=== PATIENT | female | born 1980 | race Hispanic/Latino ===

== ENCOUNTER 2017-06-28 16:00 | Emergency (ER) | payer OTHER ==
[2017-06-28] MEDS ORDERED: ALBUTEROL 2.5 MG/3 ML NEB SOL ONE (17:15)
[2017-06-28 17:40] LABS: Urine Blood NEGATIVE (NEG); Urine Glucose NEGATIVE (NEG); Urine Protein NEGATIVE (NEG); Urine Specific Gravity 1.025 (1.005-1.030); Urine pH 6.5 (5.0-7.0)
--- NOTE | 2017-06-28 18:22 | EDPHYS ---
Physician Documentation [facility] Name: Ammy Howell Age: 36 yrs Sex: Female : 1980 Arrival Date: 06/28/2017 Time: 16:04 Bed 27 Private MD: None, None ED Physician Jimbo Hidalgo HPI: 06/28 17:05 This 36 yrs old Female presents to ER via Ambulatory with complaints of Cough, cp Congestion. 17:05 The patient or guardian reports cough, that is intermittent. Onset: The cp symptoms/episode began/occurred 4 day(s) ago. Severity of symptoms: in the emergency department the symptoms are unchanged. Associated signs and symptoms: Pertinent positives: fever, sore throat, congestion, Pertinent negatives: ear ache, vomiting. 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 - Social history:: Smoking status: Patient/guardian denies using tobacco. ROS: 17:10 Constitutional: Negative for body aches, chills, fever, poor PO intake. cp 17:10 Eyes: Negative for injury, pain, redness, and discharge. cp 17:10 ENT: Positive for sore throat, Negative for drainage from ear(s), ear pain, difficulty swallowing, difficulty handling secretions. 17:10 Cardiovascular: Negative for chest pain, edema, palpitations. 17:10 Respiratory: Positive for cough. 17:10 Abdomen/GI: Negative for abdominal pain, nausea, vomiting, and diarrhea. 17:10 Skin: Negative for cellulitis, rash. 17:10 All other systems are negative. Exam: 17:15 Constitutional: The patient appears in no acute distress, alert, awake, cp non-diaphoretic, non-toxic, well developed, well nourished, obese. 17:15 Head/Face: Normocephalic, atraumatic. cp 17:15 Eyes: Periorbital structures: appear normal, Conjunctiva: normal, no exudate, no injection, Sclera: no appreciated abnormality, Lids and lashes: appear normal, bilaterally. 17:15 ENT: External ear(s): are unremarkable, Ear canal(s): are normal, clear, TM's: bulging, is not appreciated, bilaterally, dullness, bilaterally, erythema, is not appreciated, bilaterally, Nose: is normal, Mouth: Lips: moist, Oral mucosa: moist, Posterior pharynx: Airway: no evidence of obstruction, patent, Tonsils: are normal in appearance, Uvula: midline, swelling, is not appreciated, erythema, that is mild, exudate, is not appreciated. 17:15 Neck: ROM/movement: is normal, is supple, without pain, no range of motions limitations, no meningismus, no nuchal rigidity, Lymph nodes: no appreciated lymphadenopathy. 17:15 Chest/axilla: Inspection: normal, Palpation: is normal, no crepitus, no tenderness. 17:15 Cardiovascular: Rate: normal, Rhythm: regular. 17:15 Respiratory: the patient does not display signs of respiratory distress, Respirations: labored breathing, is not present, accessory muscle usage, is absent, intercostal retractions, are absent, splinting, is not noted, tachypnea, is not appreciated, Breath sounds: decreased breath sounds, that are mild, throughout, stridor, is not appreciated, + upper airway congestion. wheezing: is not appreciated. 17:15 Abdomen/GI: Exam negative for discomfort, distension, guarding, Inspection: abdomen appears normal. 17:15 Skin: cellulitis, is not appreciated, no rash present. Vital Signs: 16:29 BP 127 / 69; Pulse 89; Resp 19; Temp 98.3(O); Pulse Ox 100% on R/A; Weight 110.22 kg; la1 Height 5 ft. 4 in. (162.56 cm); 18:30 BP 114 / 68; Pulse 88; Resp 17; Pulse Ox 100% on R/A; rk2 16:29 Body Mass Index 41.71 (110.22 kg, 162.56 cm) la1 MDM: 16:53 Patient medically screened. cp 18:00 Differential Diagnosis: Bronchitis Influenza Otitis Media Pneumonia. cp 18:22 Data reviewed: vital signs, nurses notes, lab test result(s), and as a result, I will cp discharge patient. 18:22 Counseling: I had a detailed discussion with the patient and/or guardian regarding: the cp historical points, exam findings, and any diagnostic results supporting the discharge/admit diagnosis, lab results, to return to the emergency department if symptoms worsen or persist or if there are any questions or concerns that arise at home. 06/28 17:03 Order name: Strep; Complete Time: 18:21 cp 06/28 18:21 Interpretation: Reviewed. 06/28 17:26 Order name: Urine Dipstick--Ancillary (enter results); Complete Time: 17:47 em1 06/28 17:03 Order name: Urine Test (obtain specimen); Complete Time: 17:24 cp 06/28 17:26 Order name: Urine --Ancillary (enter results); Complete Time: 17:47 em1 06/28 18:07 Order name: Throat Culture EDSC 06/28 17:03 Order name: Urine Dipstick-Ancillary (obtain specimen); Complete Time: 17:24 cp Administered Medications: 17:24 Drug: Albuterol 2.5 mg Route: Inhalation; rk2 Disposition: 06/28/17 18:22 Discharged to Home. Impression: Cough. - Condition is Stable. - Discharge Instructions: Cough, Adult. - Prescriptions for Tessalon Perles 100 mg Oral Capsule - take 1 capsule by ORAL route every 8 hours As needed; 15 capsule. Prednisone 20 mg Oral Tablet - take 2 tablet by ORAL route once daily for 5 days; 10 tablet. Albuterol Sulfate 90 mcg/actuation - inhale 1-2 puff by INHALATION route every 4-6 hours; 1 Inhaler. - Medication Reconciliation Form, Thank You Letter, Antibiotic Education, Prescription Opioid Use form. - Follow up: Private Physician; When: 2 - 3 days; Reason: Recheck today's complaints. - Problem is new. - Symptoms have improved. Addendum: 06/29/2017 22:25 Co-signature as Attending Physician, Jimbo Hidalgo MD I agree with the assessment and k dr plan of care. Signatures: Dispatcher [employer] [facility] Jimbo Hidalgo MD MD kdr Attema, Lee RN RN la1 Gael Walters PA PA Romana Burnette RN RN rk2 Corrections: (The following items were deleted from the chart) 06/28 19:20 18:22 06/28/2017 18:22 Discharged to Home. Impression: Cough. Condition is Stable. rk2 Forms are Medication Reconciliation Form, Thank You Letter, Antibiotic Education, Prescription Opioid Use. Follow up: Private Physician; When: 2 - 3 days; Reason: Recheck today's complaints. Problem is new. Symptoms have improved. cp
--- NOTE | 2017-06-28 18:22 | ER ---
Nurse's Notes [facility] Name: Ammy Howell Age: 36 yrs Sex: Female : 1980 Arrival Date: 06/28/2017 Time: 16:04 Bed 27 Private MD: None, None Diagnosis: Cough Presentation: 06/28 16:27 Presenting complaint: Patient states: Cough, congestion, subjective fever on and off la1 since monday. Transition of care: patient was not received from another setting of care. Resp Distress? No respiratory distress is noted at this time. Onset of symptoms was June 28, 2017. Initial Sepsis Screen: Does the patient meet any 2 criteria? No. Patient's initial sepsis screen is negative. Does the patient have a suspected source of infection? No. Patient's initial sepsis screen is negative. Care prior to arrival: None. 16:27 Method Of Arrival: Ambulatory la1 16:27 Acuity: LAISHA 4 la1 Triage Assessment: 16:42 General: Appears in no apparent distress. well groomed, well developed, well nourished, rk2 Behavior is calm, cooperative. Pain:. Neuro: Level of Consciousness is alert, obeys commands, Oriented to person, place, time, situation. Respiratory: Reports cough that is productive, Airway is patent Respiratory effort is even, unlabored, Respiratory pattern is regular, symmetrical, Breath sounds are clear bilaterally. Derm: No signs and/or symptoms reported regarding the dermatologic system. Skin is pink, warm \T\ dry. 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 - Social history:: Smoking status: Patient/guardian denies using tobacco. Screenin:42 Abuse screen: Denies threats or abuse. Nutritional screening: No deficits noted. rk2 Tuberculosis screening: No symptoms or risk factors identified. Fall Risk None identified. Vital Signs: 16:29 BP 127 / 69; Pulse 89; Resp 19; Temp 98.3(O); Pulse Ox 100% on R/A; Weight 110.22 kg; la1 Height 5 ft. 4 in. (162.56 cm); 18:30 BP 114 / 68; Pulse 88; Resp 17; Pulse Ox 100% on R/A; rk2 16:29 Body Mass Index 41.71 (110.22 kg, 162.56 cm) la1 ED Course: 16:04 Patient arrived in ED. mr 16:04 None, None is Private Physician. mr 16:21 Romana Edwards, RN is Primary Nurse. rk2 16:28 Triage completed. la1 16:29 Arm band placed on right wrist. la1 16:42 Patient has correct armband on for positive identification. Bed in low position. Call rk2 light in reach. Pulse ox on. 16:53 Gael Walters PA is PHCP. cp 16:53 Jimbo Hidalgo MD is Attending Physician. cp 18:59 No provider procedures requiring assistance completed. Patient did not have IV access rk2 during this emergency room visit. Administered Medications: 17:24 Drug: Albuterol 2.5 mg Route: Inhalation; rk2 Outcome: 18:22 Discharge ordered by MD. cp 18:59 Discharged to home ambulatory. rk2 18:59 Condition: good 18:59 Discharge instructions given to patient, Prescriptions given X 3. 19:20 Patient left the ED. rk2 Signatures: Katia Baer mr FosterScott, RN RN la1 Gael Walters PA PA cp Romana Edwards, RN RN rk2
[2017-06-28 19:25] VITALS: TEMP 98.3; O2SAT 100
[2017-06-28 19:26] VITALS: BP 114/68
== END 2017-06-28 19:20 | disposition home or self-care (01) ==
LOC: ER 16:00
DX: R05 Cough (principal); Z88.6 Allergy status to analgesic agent
CPT/HCPCS: 81003; 81025; 87070; 87081; 99284

== ENCOUNTER 2018-03-08 13:20 | Emergency (ER) | payer OTHER ==
[2011-10-15 21:38] VITALS: BP 112/62
--- NOTE | 2018-03-08 14:52 | ER ---
Nurse's Notes [facility] Name: Ammy Howell Age: 37 yrs Sex: Female : 1980 Arrival Date: 03/08/2018 Time: 13:35 Bed Treatment Private MD: None, None Diagnosis: Acute pharyngitis;Acute sinusitis Presentation: 03/08 13:54 Presenting complaint: Patient states: i have been sick for 3 days, but my head and my tw2 ears hurt, i have a bad cough and drainage, and now its hard for me to swallow, my doctor doesn't have anything open until next week. Transition of care: patient was not received from another setting of care. Onset of symptoms was March 08, 2018. Risk Assessment: Do you want to hurt yourself or someone else? Patient reports no desire to harm self or others. Initial Sepsis Screen: Does the patient meet any 2 criteria? No. Patient's initial sepsis screen is negative. Does the patient have a suspected source of infection? No. Patient's initial sepsis screen is negative. Care prior to arrival: None. 13:54 Method Of Arrival: Ambulatory tw2 13:54 Acuity: LAISHA 4 tw2 Triage Assessment: 14:43 Headache History: The patient has had previous headaches and this one is similar to tw2 previous episodes. General: Appears in no apparent distress. 14:43 General: Appears in no apparent distress. Behavior is calm, cooperative, appropriate tw2 for age. Pain: Pain currently is 7 out of 10 on a pain scale. Pain began 2-3 days ago. Noted to be Also complains of no other associated symptoms. 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 - Social history:: Smoking status: Patient/guardian denies using tobacco. - Ebola Screening: : Patient denies travel to an Ebola-affected area in the 21 days before illness onset. Screenin:43 Abuse screen: Denies threats or abuse. Nutritional screening: No deficits noted. tw2 Tuberculosis screening: No symptoms or risk factors identified. Fall Risk None identified. Assessment: 14:42 General: Appears in no apparent distress. Behavior is calm, cooperative, appropriate tw2 for age. Pain: Complains of pain in "headache and my throat". Neuro: Level of Consciousness is awake, alert, obeys commands, Oriented to person, place, time, situation. Cardiovascular: Capillary refill < 3 seconds Patient's skin is warm and dry. Respiratory: Reports cough that is Airway is patent Respiratory effort is even, unlabored, Respiratory pattern is regular, symmetrical. GI: No signs and/or symptoms were reported involving the gastrointestinal system. : No signs and/or symptoms were reported regarding the genitourinary system. EENT: Reports nasal congestion nasal discharge pain. Derm: No signs and/or symptoms reported regarding the dermatologic system. Musculoskeletal: Range of motion: intact in all extremities. 14:47 Reassessment: provider EITAN Avila at bedside at this time. tw2 Vital Signs: 13:55 BP 130 / 92; Pulse 98; Resp 18; Temp 98.9(O); Pulse Ox 99% on R/A; Weight 111.13 kg tw2 (R); Height 5 ft. 4 in. (162.56 cm) (R); Pain 7/10; 13:55 Body Mass Index 42.05 (111.13 kg, 162.56 cm) tw2 ED Course: 13:35 Patient arrived in ED. dl4 13:35 None, None is Private Physician. dl4 13:55 Triage completed. tw2 13:55 Arm band placed on. EKG completed in triage. Results shown to MD. tw2 14:40 Bed in low position. Call light in reach. Pulse ox on. NIBP on. tw2 14:41 [facility]ai [facility]. jr8 14:41 Jimbo Hidalgo MD is Attending Physician. jr8 14:42 Arlene Espinoza, KAYLEY is Primary Nurse. tw2 14:57 No provider procedures requiring assistance completed. Patient did not have IV access tw2 during this emergency room visit. Administered Medications: No medications were administered Outcome: 14:52 Discharge ordered by . jr8 14:57 Discharged to home ambulatory. tw2 14:57 Condition: stable 14:57 Discharge instructions given to patient, Instructed on discharge instructions, follow up and referral plans. medication usage, Demonstrated understanding of instructions, follow-up care, medications, Prescriptions given X 2. 14:58 Patient left the ED. tw2 Signatures: Santi Tsai PA PA jr8 Arlene Espinoza RN RN tw2 Alessandro Carvalho dl4
--- NOTE | 2018-03-08 14:53 | EDPHYS ---
Physician Documentation [facility] Name: Ammy Howell Age: 37 yrs Sex: Female : 1980 Arrival Date: 03/08/2018 Time: 13:35 Bed Treatment Private MD: None, None ED Physician Jimbo Hidalgo HPI: 03/08 15:45 This 37 yrs old Female presents to ER via Ambulatory with complaints of Cough, jr8 Headache. 15:45 The patient or guardian reports cough, that is intermittent, described as mild, with no jr8 sputum. Onset: The symptoms/episode began/occurred gradually, 3 day(s) ago. Severity of symptoms: At their worst the symptoms were mild, in the emergency department the symptoms are unchanged. Modifying factors: The symptoms are alleviated by nothing, the symptoms are aggravated by nothing. Associated signs and symptoms: Pertinent positives: rhinorrhea, sore throat, headache. The patient has not experienced similar symptoms in the past. The patient has not recently seen a physician. 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 - Social history:: Smoking status: Patient/guardian denies using tobacco. - Ebola Screening: : Patient denies travel to an Ebola-affected area in the 21 days before illness onset. ROS: 15:45 Eyes: Negative for injury, pain, redness, and discharge, Neck: Negative for injury, jr8 pain, and swelling, Cardiovascular: Negative for chest pain, palpitations, and edema, Abdomen/GI: Negative for abdominal pain, nausea, vomiting, diarrhea, and constipation, Back: Negative for injury and pain, MS/Extremity: Negative for injury and deformity, Skin: Negative for injury, rash, and discoloration. 15:45 ENT: Positive for rhinorrhea, sinus congestion, sinus pain, sore throat, Negative for drainage from ear(s), ear pain. 15:45 Respiratory: Positive for cough, Negative for shortness of breath, sputum production, wheezing. 15:45 Neuro: Positive for headache. Exam: 15:45 Eyes: Pupils equal round and reactive to light, extra-ocular motions intact. Lids and jr8 lashes normal. Conjunctiva and sclera are non-icteric and not injected. Cornea within normal limits. Periorbital areas with no swelling, redness, or edema. ENT: Nares patent. No nasal discharge, no septal abnormalities noted. Tympanic membranes are normal and external auditory canals are clear. Oropharynx with no redness, swelling, or masses, exudates, or evidence of obstruction, uvula midline. Mucous membranes moist. Neck: Trachea midline, no thyromegaly or masses palpated, and no cervical lymphadenopathy. Supple, full range of motion without nuchal rigidity, or vertebral point tenderness. No Meningismus. Cardiovascular: Regular rate and rhythm with a normal S1 and S2. No gallops, murmurs, or rubs. Normal PMI, no JVD. No pulse deficits. Respiratory: Lungs have equal breath sounds bilaterally, clear to auscultation and percussion. No rales, rhonchi or wheezes noted. No increased work of breathing, no retractions or nasal flaring. Abdomen/GI: Soft, non-tender, with normal bowel sounds. No distension or tympany. No guarding or rebound. No evidence of tenderness throughout. Back: No spinal tenderness. No costovertebral tenderness. Full range of motion. Skin: Warm, dry with normal turgor. Normal color with no rashes, no lesions, and no evidence of cellulitis. MS/ Extremity: Pulses equal, no cyanosis. Neurovascular intact. Full, normal range of motion. Neuro: Awake and alert, GCS 15, oriented to person, place, time, and situation. Cranial nerves II-XII grossly intact. Motor strength 5/5 in all extremities. Sensory grossly intact. Cerebellar exam normal. Normal gait. Vital Signs: 13:55 BP 130 / 92; Pulse 98; Resp 18; Temp 98.9(O); Pulse Ox 99% on R/A; Weight 111.13 kg tw2 (R); Height 5 ft. 4 in. (162.56 cm) (R); Pain 7/10; 13:55 Body Mass Index 42.05 (111.13 kg, 162.56 cm) tw2 MDM: 14:41 Patient medically screened. jr8 14:51 Data reviewed: vital signs, nurses notes, lab test result(s), and as a result, I will jr8 discharge patient. Data interpreted: Pulse oximetry: on room air is 99 %. Interpretation: normal. Counseling: I had a detailed discussion with the patient and/or guardian regarding: the historical points, exam findings, and any diagnostic results supporting the discharge/admit diagnosis, the need for outpatient follow up, a family practitioner, to return to the emergency department if symptoms worsen or persist or if there are any questions or concerns that arise at home. 03/08 14:01 Order name: Flu; Complete Time: 14:41 tw2 03/08 14:01 Order name: Strep; Complete Time: 14: tw2 03/08 14:25 Order name: Throat Culture EDMS Administered Medications: No medications were administered Disposition: 03/08/18 14:52 Discharged to Home. Impression: Acute pharyngitis, Acute sinusitis. - Condition is Stable. - Discharge Instructions: Pharyngitis, Sinusitis, Adult. - Prescriptions for Augmentin 875- 125 mg Oral Tablet - take 1 tablet by ORAL route every 12 hours for 10 days; 20 tablet. Guaifenesin AC 10- 100 mg/5 mL Oral Liquid - take 10 milliliter by ORAL route every 4 hours As needed; 240 milliliter. - Medication Reconciliation Form, Thank You Letter, Antibiotic Education, Prescription Opioid Use, Work release form form. - Follow up: Private Physician; When: 2 - 3 days; Reason: Recheck today's complaints, Continuance of care, Re-evaluation by your physician. - Problem is new. - Symptoms have improved. Addendum: 03/15/2018 08:58 Co-signature as Attending Physician, Jimbo Hidalgo MD I agree with the assessment and k dr plan of care. Signatures: Dispatcher [employer] [facility] Jimbo Hidalgo MD MD kdr Santi Tsai PA PA jr8 Arlene Espinoza RN RN tw2 Corrections: (The following items were deleted from the chart) 03/08 14:58 14:52 03/08/2018 14:52 Discharged to Home. Impression: Acute pharyngitis; Acute tw2 sinusitis. Condition is Stable. Forms are Work release form, Medication Reconciliation Form, Thank You Letter, Antibiotic Education, Prescription Opioid Use. Follow up: Private Physician; When: 2 - 3 days; Reason: Recheck today's complaints, Continuance of care, Re-evaluation by your physician. Problem is new. Symptoms have improved. jr8
== END 2018-03-08 14:58 | disposition home or self-care (01) ==
LOC: ER 13:20
DX: J01.90 Acute sinusitis, unspecified (principal); J02.9 Acute pharyngitis, unspecified; Z88.5 Allergy status to narcotic agent
CPT/HCPCS: 87070; 87081; 87804; 99283

== ENCOUNTER 2018-04-07 14:50 | Inpatient (IN) | payer OTHER ==
[2018-04-07] MEDS ORDERED: LIDOCAINE 1% 20 ML MDV ONE (15:51)
[2018-04-07] MEDS ORDERED: LORAZEPAM 0.5 MG TABLET ONE (16:00)
--- NOTE | 2018-04-07 16:17 | EDPHYS ---
Physician Documentation [facility] Name: Ammy Howell Age: 37 yrs Sex: Female : 1980 Arrival Date: 04/07/2018 Time: 14:52 Bed 24 Private MD: None, None ED Physician Gael Reyes HPI: 04/07 15:44 This 37 yrs old Female presents to ER via Ambulatory with complaints of sarika Abscess. 15:44 The patient presents with an abscess of the groin and left femoral area. Description: sarika The affected area is small, moderate sized, confluent, draining, erythematous, fluctuant, hot. Onset: The symptoms/episode began/occurred 3 day(s) ago. Possible cause(s): unknown. Severity of symptoms: At their worst the symptoms were. The patient has not experienced similar symptoms in the past. 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 - Social history:: Smoking status: Patient/guardian denies using tobacco. - Ebola Screening: : Patient negative for fever greater than or equal to 101.5 degrees Fahrenheit, and additional compatible Ebola Virus Disease symptoms Patient denies exposure to infectious person Patient denies travel to an Ebola-affected area in the 21 days before illness onset No symptoms or risks identified at this time. - Family history:: not pertinent. ROS: 15:44 Constitutional: Negative for fever, chills, and weight loss, Eyes: Negative for injury, sarika pain, redness, and discharge, ENT: Negative for injury, pain, and discharge, Neck: Negative for injury, pain, and swelling, Cardiovascular: Negative for chest pain, palpitations, and edema, Respiratory: Negative for shortness of breath, cough, wheezing, and pleuritic chest pain, Abdomen/GI: Negative for abdominal pain, nausea, vomiting, diarrhea, and constipation, Back: Negative for injury and pain, : Negative for injury, bleeding, discharge, and swelling, MS/Extremity: Negative for injury and deformity, Neuro: Negative for headache, weakness, numbness, tingling, and seizure, Psych: Negative for depression, anxiety, suicide ideation, homicidal ideation, and hallucinations, Allergy/Immunology: Negative for hives, rash, and allergies, Endocrine: Negative for neck swelling, polydipsia, polyuria, polyphagia, and marked weight changes, Hematologic/Lymphatic: Negative for swollen nodes, abnormal bleeding, and unusual bruising. 15:44 Skin: Positive for erythema, swelling, of the pelvis. Exam: 15:44 Constitutional: This is a well developed, well nourished patient who is awake, alert, sarika and in no acute distress. Head/Face: Normocephalic, atraumatic. Eyes: Pupils equal round and reactive to light, extra-ocular motions intact. Lids and lashes normal. Conjunctiva and sclera are non-icteric and not injected. Cornea within normal limits. Periorbital areas with no swelling, redness, or edema. ENT: Nares patent. No nasal discharge, no septal abnormalities noted. Tympanic membranes are normal and external auditory canals are clear. Oropharynx with no redness, swelling, or masses, exudates, or evidence of obstruction, uvula midline. Mucous membranes moist. Neck: Trachea midline, no thyromegaly or masses palpated, and no cervical lymphadenopathy. Supple, full range of motion without nuchal rigidity, or vertebral point tenderness. No Meningismus. Chest/axilla: Normal chest wall appearance and motion. Nontender with no deformity. No lesions are appreciated. Cardiovascular: Regular rate and rhythm with a normal S1 and S2. No gallops, murmurs, or rubs. Normal PMI, no JVD. No pulse deficits. Respiratory: Lungs have equal breath sounds bilaterally, clear to auscultation and percussion. No rales, rhonchi or wheezes noted. No increased work of breathing, no retractions or nasal flaring. Abdomen/GI: Soft, non-tender, with normal bowel sounds. No distension or tympany. No guarding or rebound. No evidence of tenderness throughout. Back: No spinal tenderness. No costovertebral tenderness. Full range of motion. Female : Normal external genitalia. MS/ Extremity: Pulses equal, no cyanosis. Neurovascular intact. Full, normal range of motion. Neuro: Awake and alert, GCS 15, oriented to person, place, time, and situation. Cranial nerves II-XII grossly intact. Motor strength 5/5 in all extremities. Sensory grossly intact. Cerebellar exam normal. Normal gait. Psych: Awake, alert, with orientation to person, place and time. Behavior, mood, and affect are within normal limits. 15:44 Skin: abscess, that is moderate sized, of the groin, with drainage, with induration, with surrounding cellulitis, cellulitis, that is minimal, induration, that is mild is noted, that is moderate is noted. Vital Signs: 15:08 BP 124 / 78; Pulse 97; Resp 17; Temp 99.2; Pulse Ox 98% on R/A; sg 18:28 BP 125 / 54; Pulse 91; Resp 18; Pulse Ox 98% on R/A; la1 20:00 BP 151 / 91; Pulse 88; Resp 20; Temp 98.6; Pulse Ox 97% on R/A; Pain 5/10; fc MDM: 15:34 Patient medically screened. [facility] 15:44 Data reviewed: vital signs, nurses notes, lab test result(s). [facility] 04/07 16:03 Order name: Glucose, Ancillary Testing; Complete Time: 16:53 EDLA 04/07 16:09 Order name: Basic Metabolic Panel; Complete Time: 18:17 [facility] 04/07 16:09 Order name: CBC with Diff; Complete Time: 17:32 [facility] 04/07 16:09 Order name: LFT's; Complete Time: 18:17 [facility] 04/07 16:09 Order name: Magnesium; Complete Time: 18:17 [facility] 04/07 16:09 Order name: NT PRO-BNP; Complete Time: 18:17 [facility] 04/07 16:09 Order name: PT-INR; Complete Time: 17:32 [facility] 04/07 16:09 Order name: Troponin (emerg Dept Use Only); Complete Time: 18:17 [facility] 04/07 16:09 Order name: XRAY Chest (1 view); Complete Time: 16:53 [facility] 04/07 16:09 Order name: Wound Culture [facility] 04/07 17:10 Order name: Test, Urine [facility] 04/07 17:10 Order name: Urine Dipstick--Ancillary (enter results) [facility] 04/07 17:10 Order name: Test, Serum; Complete Time: 18:17 [facility] 04/07 18:35 Order name: Glucose, Ancillary Testing [facility] 04/07 15:43 Order name: Gloves, Sterile; Complete Time: 16:03 [facility] 04/07 15:43 Order name: Setup Suture Tray; Complete Time: 16:03 [facility] 04/07 15:43 Order name: Blood Glucose Level; Complete Time: 16:01 [facility] 04/07 16:09 Order name: EKG; Complete Time: 16:10 [facility] 04/07 16:09 Order name: Cardiac monitoring; Complete Time: 18:09 [facility] 04/07 16:09 Order name: EKG - Nurse/Tech; Complete Time: 18:09 [facility] 04/07 16:09 Order name: IV Saline Lock; Complete Time: 17:26 [facility] 04/07 16:09 Order name: Labs collected and sent; Complete Time: 17: [facility] 04/07 16:09 Order name: O2 Per Protocol; Complete Time: 17:26 [facility] 04/07 16:09 Order name: O2 Sat Monitoring; Complete Time: 17: [facility] 04/07 16:53 Order name: Urine Dipstick-Ancillary (obtain specimen); Complete Time: 17: [facility] 04/07 16:53 Order name: Urine Test (obtain specimen); Complete Time: 17: [facility] 04/07 19:10 Order name: NPO: after midnight; Complete Time: 19:22 [facility] Administered Medications: 16:00 Drug: Ativan 1 mg Route: PO; la1 17:48 Follow up: Response: No adverse reaction; Anxiety decreased la1 16:03 Drug: Lidocaine (2 %) 10 ml Volume: 5 ml; Route: Infiltration; la1 17:31 CANCELLED (Duplicate Order): Doxycycline 200 mg PO once [facility] 17:32 CANCELLED (Duplicate Order): Bactrim (160 mg-800 mg (DS) 1 tablet PO once [facility] 17:45 Drug: Insulin Regular Human 10 units {Co-Signature: hb (Juliane Guthrie RN).} Route: la1 IVP; Site: left antecubital; 18:33 Follow up: Response: Blood sugar is lowered la1 17:45 Drug: Insulin Regular Human 10 units {Co-Signature: hb (Juliane Guthrie RN).} Route: la1 Sub-Q; Site: left upper arm; 18:33 Follow up: Response: Blood sugar is lowered la1 17:47 Drug: morphine 4 mg Route: IVP; Site: left antecubital; la1 17:48 Follow up: Response: No adverse reaction; Pain is decreased la1 17:47 Drug: Zosyn 3.375 grams Route: IVPB; Infused Over: 60 mins; Site: left antecubital; la1 18:28 Follow up: IV Status: Completed infusion la1 17:47 Drug: NS 0.9% 1000 ml Route: IV; Rate: 1 bolus; Site: left antecubital; la1 18:33 Follow up: IV Status: Infusion continued upon admission la1 17:48 Not Given (Other Intervention Used): NS 0.9% 1000 ml IV at 1 bolus Per protocol; 1000 la1 mL bolus 17:48 Drug: Zofran 4 mg Route: IVP; Site: left antecubital; la1 17:49 Follow up: Response: No adverse reaction la1 18:27 Drug: NS 0.9% 1000 ml Route: IV; Rate: 1 bolus; Site: left antecubital; la1 18:29 Follow up: IV Status: Completed infusion la1 18:28 Drug: vancoMYCIN 1 grams Route: IVPB; Infused Over: 2 hrs; Site: left antecubital; la1 18:33 Follow up: IV Status: Infusion continued upon admission la1 18:32 Drug: morphine 4 mg Route: IVP; Site: left antecubital; la1 18:33 Follow up: Response: No adverse reaction; Pain is decreased la1 18:33 Not Given (Other Intervention Used): Zofran 4 mg IVP once; over 2 minutes la1 20:42 Drug: Zofran 4 mg Route: IVP; Site: left antecubital; la1 20:42 Follow up: Response: No adverse reaction la1 Point of Care Testing: Blood Glucose: 16:00 Blood Glucose: 485 mg/dL; lt1 18:32 Blood Glucose: 222 mg/dL; la1 Ranges: Critical Glucose Levels:Adult <50 mg/dl or >400 mg/dl <40 mg/dl or >180 mg/dl Disposition: 02/23/19 16:17 Hospitalization ordered by Alia Becerra for Inpatient Admission. Preliminary diagnosis are Type 2 diabetes mellitus - new onset, Cutaneous abscess of groin - mons pubis, Fever, unspecified. - Bed requested for Telemetry/MedSurg (Inpatient). - Status is Inpatient Admission. la1 - Condition is Stable. - Problem is new. - Symptoms have improved. UTI on Admission? No Signatures: Dispatcher [employer] EDMax Mckeon RN RN sg Anderson, Corey, MD MD cha Chretien, Felicia, RN RN fc Solis, Maria ms Scott Foster RN RN la1 Juliane Guthrie RN Corrections: (The following items were deleted from the chart) 16:10 15:47 I \T\ D: Incision and drainage was performed for an abscess of the groin Prepped sarika with Betadine, Anesthetized with 10 ml's 1% Lidocaine w/ Epi. Incised with #11 blade. Drained small amount Packed with iodoform gauze, Dressing: non-Adherent dressing, the patient tolerated the procedure well, [facility] 17:26 15:43 Dressing - Wound ordered. [place] [id number] 17:31 15:43 Doxycycline 200 mg PO once ordered. [facility] 17:32 15:43 Bactrim (160 mg-800 mg (DS) 1 tablet PO once ordered. [facility] 18:12 16:17 Hospitalization Ordered by Alia Becerra MD for Inpatient Admission. Preliminary ms diagnosis is Type 2 diabetes mellitus - new onset; Cutaneous abscess of groin - mons pubis; Fever, unspecified. Bed requested for Telemetry/MedSurg (Inpatient). Status is Inpatient Admission. Condition is Stable. Problem is new. Symptoms have improved. UTI on Admission? No. [facility] 20:56 18:12 04/07/2018 16:17 Hospitalization Ordered by Alia Becerra MD for Inpatient la1 Admission. Preliminary diagnosis is Type 2 diabetes mellitus - new onset; Cutaneous abscess of groin - mons pubis; Fever, unspecified. Bed requested for Telemetry/MedSurg (Inpatient). Status is Inpatient Admission. Condition is Stable. Problem is new. Symptoms have improved. UTI on Admission? No. ms
--- NOTE | 2018-04-07 16:17 | ER ---
Nurse's Notes [facility] Name: Ammy Howell Age: 37 yrs Sex: Female : 1980 Arrival Date: 04/07/2018 Time: 14:52 Bed 24 Private MD: None, None Diagnosis: Type 2 diabetes mellitus-new onset;Cutaneous abscess of groin-mons pubis;Fever, unspecified Presentation: 04/07 15:06 Presenting complaint: Patient states: Abscess noted to the labia majora, reports pain sg redness and swelling, pain radiates down the right leg, unsure if any fever at home due to taking motrin for pain control. Transition of care: patient was not received from another setting of care. Onset of symptoms was April 07, 2018. Risk Assessment: Do you want to hurt yourself or someone else? Patient reports no desire to harm self or others. Initial Sepsis Screen: Does the patient meet any 2 criteria? HR > 90 bpm. Does the patient have a suspected source of infection? Yes: Skin breakdown/wound. Care prior to arrival: None. 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 - Social history:: Smoking status: Patient/guardian denies using tobacco. - Ebola Screening: : Patient negative for fever greater than or equal to 101.5 degrees Fahrenheit, and additional compatible Ebola Virus Disease symptoms Patient denies exposure to infectious person Patient denies travel to an Ebola-affected area in the 21 days before illness onset No symptoms or risks identified at this time. - Family history:: not pertinent. Screenin:01 Abuse screen: Denies threats or abuse. Nutritional screening: No deficits noted. la1 Tuberculosis screening: No symptoms or risk factors identified. Fall Risk None identified. Assessment: 16:00 General: Appears in no apparent distress. Behavior is calm, cooperative. Pain: la1 Complains of pain in left femoral area. Neuro: Level of Consciousness is awake, alert, obeys commands, Oriented to person, place, time, situation. Cardiovascular: Capillary refill < 3 seconds Patient's skin is warm and dry. Respiratory: Airway is patent Respiratory effort is even, unlabored, Respiratory pattern is regular, symmetrical. GI: Abdomen is non-distended, obese. : No signs and/or symptoms were reported regarding the genitourinary system. Derm: Abscess located on left femoral area is quarter sized, has clear drainage, is red, is raised. 17:49 Reassessment: Patient appears in no apparent distress at this time. No changes from la1 previously documented assessment. Patient and/or family updated on plan of care and expected duration. Pain level reassessed. Vital Signs: 15:08 BP 124 / 78; Pulse 97; Resp 17; Temp 99.2; Pulse Ox 98% on R/A; sg 18:28 BP 125 / 54; Pulse 91; Resp 18; Pulse Ox 98% on R/A; la1 20:00 BP 151 / 91; Pulse 88; Resp 20; Temp 98.6; Pulse Ox 97% on R/A; Pain 5/10; fc ED Course: 14:52 Patient arrived in ED. mr 14:52 None, None is Private Physician. mr 15:08 Triage completed. sg 15:08 Arm band placed on. sg 15:34 Gael Reyes MD is Attending Physician. sarika 16:01 Bed in low position. Call light in reach. la1 16:01 No provider procedures requiring assistance completed. la1 16:02 Scott Foster RN is Primary Nurse. la1 16:14 Alia Becerra MD is Hospitalizing Provider. sarika 16:18 Missed attempt(s): 22 gauge in left forearm. lt1 16:44 XRAY Chest (1 view) In Process Unspecified. EDMS 17:00 Accessed peripheral vein via ultrasound, utilizing dynamic ultrasound technique Clean \T\ la1 dry. 18G 2in long IV inserted to left basilic vein. 20:08 Patient admitted, IV remains in place. fc Administered Medications: 16:00 Drug: Ativan 1 mg Route: PO; la1 17:48 Follow up: Response: No adverse reaction; Anxiety decreased la1 16:03 Drug: Lidocaine (2 %) 10 ml Volume: 5 ml; Route: Infiltration; la1 17:31 CANCELLED (Duplicate Order): Doxycycline 200 mg PO once sarika 17:32 CANCELLED (Duplicate Order): Bactrim (160 mg-800 mg (DS) 1 tablet PO once sarika 17:45 Drug: Insulin Regular Human 10 units {Co-Signature: hb (Juliane Guthrie RN).} Route: la1 IVP; Site: left antecubital; 18:33 Follow up: Response: Blood sugar is lowered la1 17:45 Drug: Insulin Regular Human 10 units {Co-Signature: hb (Juliane Guthrie RN).} Route: la1 Sub-Q; Site: left upper arm; 18:33 Follow up: Response: Blood sugar is lowered la1 17:47 Drug: morphine 4 mg Route: IVP; Site: left antecubital; la1 17:48 Follow up: Response: No adverse reaction; Pain is decreased la1 17:47 Drug: Zosyn 3.375 grams Route: IVPB; Infused Over: 60 mins; Site: left antecubital; la1 18:28 Follow up: IV Status: Completed infusion la1 17:47 Drug: NS 0.9% 1000 ml Route: IV; Rate: 1 bolus; Site: left antecubital; la1 18:33 Follow up: IV Status: Infusion continued upon admission la1 17:48 Not Given (Other Intervention Used): NS 0.9% 1000 ml IV at 1 bolus Per protocol; 1000 la1 mL bolus 17:48 Drug: Zofran 4 mg Route: IVP; Site: left antecubital; la1 17:49 Follow up: Response: No adverse reaction la1 18:27 Drug: NS 0.9% 1000 ml Route: IV; Rate: 1 bolus; Site: left antecubital; la1 18:29 Follow up: IV Status: Completed infusion la1 18:28 Drug: vancoMYCIN 1 grams Route: IVPB; Infused Over: 2 hrs; Site: left antecubital; la1 18:33 Follow up: IV Status: Infusion continued upon admission la1 18:32 Drug: morphine 4 mg Route: IVP; Site: left antecubital; la1 18:33 Follow up: Response: No adverse reaction; Pain is decreased la1 18:33 Not Given (Other Intervention Used): Zofran 4 mg IVP once; over 2 minutes la1 20:42 Drug: Zofran 4 mg Route: IVP; Site: left antecubital; la1 20:42 Follow up: Response: No adverse reaction la1 Point of Care Testing: Blood Glucose: 16:00 Blood Glucose: 485 mg/dL; lt1 18:32 Blood Glucose: 222 mg/dL; la1 Ranges: Outcome: 16:17 Decision to Hospitalize by Provider. [facility] 20:05 Admitted to Med/surg accompanied by tech, via wheelchair, room 214, with chart, Report fc called to Krystal Felix RN 20:05 Condition: good 20:05 Discharge instructions given to patient, Instructed on the need for admit, Demonstrated understanding of instructions. 20:56 Patient left the ED. la1 Signatures: Dispatcher [employer] EDMS Max Delaney, KAYLEY ZALDIVAR Gael Reyes MD MD cha Rivera, Mary mr Natalie Walter RN RN Scott Foster RN RN la1 Claritza Erickson 1 Juliane Guthrie RN hb Corrections: (The following items were deleted from the chart) 20:08 20:00 BP 151 / 91; Pulse 88bpm; Resp 20bpm; Pulse Ox 97% RA; Pain 5/10; [facility]
--- NOTE | 2018-04-07 16:49 | RAD REPORT ---
EXAM DESCRIPTION: RAD - Chest Single View - 04/07/2018 4:44 pm CLINICAL HISTORY: COUGH Chest pain. COMPARISON: CHEST SINGLE VIEW dated 02/22/2014; CHEST SINGLE VIEW dated 01/25/2014; CHEST PA AND LAT 2 VIEW dated 01/27/2009; CHEST PA AND LAT 2 VIEW dated 05/22/2008 FINDINGS: Portable technique limits examination quality. The lungs are grossly clear. The heart is normal in size. No displaced fractures. IMPRESSION: No acute intrathoracic process suspected.
[2018-04-07 17:18] LABS: Absolute Lymphocytes (CBC) 2.7 K/uL (0.7-4.9); Absolute Monocytes 0.4 K/uL (0.1-1.3); Absolute Neutrophil 6.4 K/uL (1.8-8.0); Basophils % 0.9 % (0-1.3); Eosinophils % 0.9 % (0-4.4); Hematocrit 38.6 % (36.0-45.0); MPV 7.6 fL (7.6-11.3); Monocytes % 4.3 % (3.3-12.3); RBC Red Blood Cell Count 4.97 M/uL (3.86-4.86)
[2018-04-07 17:19] LABS: Protime INR 1.03
[2018-04-07] MEDS ORDERED: INSULIN -REGULAR HUMAN 50 UNIT/0.5 ML ML ONE (17:27)
[2018-04-07] MEDS ORDERED: MORPHINE 4 MG/ML SYR ONE ×2 (17:27→18:33)
[2018-04-07] MEDS ORDERED: ONDANSETRON 4 MG/2 ML VIAL ONE (17:27)
[2018-04-07] MEDS ORDERED: PIPER/TAZO/NS 3.375gm 3.375 GM/100 ML BAG ONE (17:27)
[2018-04-07] MEDS ORDERED: NA CHLORIDE 0.9% 1,000 ML ONE ×2 (17:28→18:27)
[2018-04-07] MEDS ORDERED: VANCOMYCIN/NS 1 gm 1 GM/250 ML BAG IVPB ONE (17:45)
[2018-04-07 17:54] LABS: ALT/SGPT 23 U/L (12-78); AST/SGOT 13 U/L (15-37); Albumin 3.4 g/dL (3.4-5.0); Alkaline Phosphatase 132 U/L (45-117); BUN Blood Urea Nitrogen 9 mg/dL (7-18); Bicarbonate 27 mmol/L (21-32); Bilirubin Direct < 0.1 mg/dL (0-0.2); Bilirubin Total 0.3 mg/dL (0.2-1.0); Magnesium 1.9 mg/dL (1.8-2.4); NT PRO-BNP 76 pg/mL (<125); Protein, Total 7.5 g/dL (6.4-8.2); Sodium Level 133 mmol/L (136-145); Troponin (Emerg Dept Use Only) < 0.02 ng/mL (0.0-0.045)
[2018-04-07 18:08] LABS: Glucose Level 451 mg/dL (74-106)
[2018-04-07] MEDS ORDERED: VANCOMYCIN/NS 1 gm 1 GM/250 ML BAG IVPB SCH (20:34)
[2018-04-07 20:43] LABS: Urine Blood NEGATIVE (NEG); Urine Glucose 3+ (NEG); Urine Protein NEGATIVE (NEG); Urine Specific Gravity <1.005 (1.005-1.030); Urine pH 5.5 (5.0-7.0)
[2018-04-07] MEDS ORDERED: CEFEPIME 2 GM VIAL IV SCH (21:00)
[2018-04-07] MEDS: NYSTATIN PWDR 100000 UNIT/GM TOP SCH (21:00)
[2018-04-07 21:17] VITALS: BMI 38.4
[2018-04-07] MEDS ORDERED: NS IVPB ONE (22:00)
[2018-04-07] MEDS ORDERED: VANCOMYCIN IVPB ONE (22:00)
[2018-04-07] MEDS: ACETAMINOPHEN 500 MG TAB PO PRN (22:05)
[2018-04-07] MEDS: NA CHLORIDE 0.9% 1,000 ML IV SCH (22:06)
[2018-04-07] MEDS ORDERED: VANCOMYCIN 750 MG in NA CHLORIDE 0.9% 150 ML IVPB ONE (22:15)
[2018-04-07] MEDS ORDERED: VANCOMYCIN 1 GM/VIAL ONE (22:36)
[2018-04-07] MEDS ORDERED: VANCOMYCIN 750 MG in NA CHLORIDE 0.9% 250 ML IVPB ONE (22:45)
[2018-04-07] MEDS ORDERED: NA CHLORIDE 0.9% 250 ML ONE (22:46)
[2018-04-07] MEDS: INSULIN -REGULAR HUMAN 50 UNIT/0.5 ML ML SQ SCH (22:54)
[2018-04-07] MEDS ORDERED: CEFEPIME 2 GM/100 ML BAG IV SCH (23:00)
[2018-04-07] MEDS ORDERED: CEFEPIME 2 GM VIAL ONE (23:18)
[2018-04-08] MEDS ORDERED: NA CHLORIDE 0.9% 100 ML ONE (00:15)
--- NOTE | 2018-04-08 03:06 | HP ---
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 Reza with General Surgery. Chief Complaint: Abscess around the mons pubis, pain. History Of Present Illness: The patient is a 37-year-old female with past medical history of diverti culitis, cervical cancer, status post conization, who has been in her usual state of health until sev eral days prior to admission when the patient had worsening of a carbuncle around her mons pubis area bilaterally. The patient does report some fluctuance. The pain was moderate, constant, and progres sing. The patient denies any alleviating factors, pressure, or worsening symptoms. The patient stat es that she does not shave, however, uses a [employer] product to get rid of the hair in that area and used [id number] medications, but not topical antibiotics for treatment, which did not improve her c ondition, therefore came into the ER. She also reported some subjective fever and chills. The patie nt came into the ER for further evaluation. Her workup revealed a normal white blood cell count. Ho wever, her blood glucose level was greater than 450. The patient has not been diagnosed with diabete s previously. The patient was started on broad-spectrum IV antibiotics and then referred for admissi on. When seen in the ER, the patient was awake, alert, and oriented x3, in some mild distress due to pain. Past Medical History: Diverticulitis, generalized anxiety disorder, ADD, and cervical cancer, status post conization. Past Surgical History: Partial colectomy due to diverticulitis with end-to-end anastomosis, tubal li gation, cholecystectomy, multiple hernia repairs, and tubal ligation. Allergies: TO DEMEROL. Medications: List reviewed. Family History: Grandmother has diabetes. Social History: The patient smokes 1-2 cigarettes per day. Denies any alcohol use or illicit drug u se. Review of Systems: An 11-point system reviewed, negative except as per HPI. Physical Examination: Vital Signs: Temperature 99.2, heart rate 97, blood pressure 124/78, respirations 17, and O2 of 98% on room air. General: Awake, alert, and oriented x3. Morbidly obese female. CV: S1, S2. Regular rate and rhythm. Peripheral pulses present. HEENT: Normocephalic, atraumatic. PERRLA. EOMI. Moist mucous membranes. Oropharynx is clear. Co njunctivae are anicteric. Neck: Supple. No JVD. Trachea midline. Respiratory: Clear to auscultation bilaterally. No wheezing or stridor. No use of accessory muscle s. Gastrointestinal: Abdomen is soft, nontender, and nondistended. Positive bowel sounds. No guarding or rigidity. Extremities: No clubbing, cyanosis, or edema. No calf tenderness. Skin: Area of the mons pubis bilaterally has some surrounding erythema, tenderness to palpation, and carbuncle. The left side has an abscess that was recently ruptured while the patient was in the [facility] hroom in the ER. Neuro: Nonfocal. Cranial nerves 2-12 intact grossly. Strength is 5/5 in bilateral upper and lower extremities. Sensation intact to light touch. Speech is normal. Psych: Mood is anxious. Affect is congruent with mood. Insight and judgment are good. Laboratory Data: Serum test is negative. Glucose greater than 450. WBC 9.8, H and H 12.6 and 38.6, platelets of 376, and neutrophils 65%. INR is 1.03. CMP is pending. Imaging Studies: Chest x-ray personally reviewed, shows no acute intrathoracic process identified. Assessment And Plan: A 37-year-old female with: 1.Abscess of the mons pubis. We will start on IV antibiotics. The patient is a newly diagnosed dc betic, is at risk for MRSA. We will cover with vanc and cefepime. We will obtain wound cultures. Angy Reza with General Surgery has been consulted by the ER. White count is normal. No signs of seps is. We will keep the patient n.p.o. after midnight. 2.New onset diabetes mellitus type 2. We will start on sliding scale insulin. The patient is order ed to receive 10 units of insulin. We will follow up on CMP to ensure that an anion gap is not eleva nahid. The patient does not appear to be in DKA. 3.Morbid obesity. 4.Generalized anxiety disorder. The patient takes Klonopin as needed. 5.ADD, on Adderall. 6.Diverticulosis, status post hemicolectomy with end-to-end anastomosis. 7.History of cervical cancer, status post conization. Admit the patient to Med-Surg, place as an inpatient. Place SCDs for DVT prophylaxis. Length of sta y, greater than 2 midnights. NILDA Voice ID: [id number]
[2018-04-08] MEDS: NA CHLORIDE 0.9% 1,000 ML IV SCH ×3 (05:28→20:28)
[2018-04-08 05:57] LABS: Specific Gravity >= 1.030 (1.005-1.030); Urine Appearance CLEAR; Urine Bilirubin NEGATIVE (NEG); Urine Blood NEGATIVE (NEG); Urine Color YELLOW; Urine Glucose 3+ (NEG); Urine Protein NEGATIVE (NEG); Urine Specific Gravity >=1.030 (1.005-1.030); Urine Urobilinogen 0.2 mg/dL (0.2-1.0); Urine pH 5.5 (5.0-7.0)
[2018-04-08 05:58] LABS: Urine Microscopic Reflex NO UMIC
--- NOTE | 2018-04-08 06:20 | EKG ---
Test Date: 2018-04-07 Test Time: 17:57:07 Entrepreneurial Finance Professor: URIAHT MEASUREMENT RESULTS: Intervals: Rate: 78 NH: 156 QRSD: 90 QT: 376 QTc: 428 [place]: P: 14 NH: 156 QRS: 12 T: 2 INTERPRETIVE STATEMENTS: Normal sinus rhythm Normal ECG Compared to ECG 08/16/2015 12:49:35 Sinus arrhythmia no longer present Electronically Signed On 04-08-18 06:19:37 WET MACHINE OPERATOR by Eric Cai
[2018-04-08 06:27] LABS: BUN Blood Urea Nitrogen 11 mg/dL (7-18); Bicarbonate 24 mmol/L (21-32); Glucose Level 265 mg/dL (74-106); Potassium 3.7 mmol/L (3.5-5.1); Sodium Level 139 mmol/L (136-145)
[2018-04-08 06:38] LABS: Absolute Lymphocytes (CBC) 2.6 K/uL (0.7-4.9); Absolute Monocytes 0.4 K/uL (0.1-1.3); Absolute Neutrophil 4.7 K/uL (1.8-8.0); Basophils % 0.5 % (0-1.3); Eosinophils % 1.7 % (0-4.4); Hematocrit 33.5 % (36.0-45.0); Lymphocytes % 32.9 % (15.3-44.8); MPV 7.8 fL (7.6-11.3); Monocytes % 5.3 % (3.3-12.3)
[2018-04-08] MEDS ORDERED: D50W 25 GM/50 ML SYRINGE IV PRN (07:13)
[2018-04-08] MEDS ORDERED: GLUCAGON 1 MG/VIAL IM PRN (07:13)
[2018-04-08] MEDS: INSULIN -REGULAR HUMAN 50 UNIT/0.5 ML ML SQ SCH ×4 (07:30→20:23)
[2018-04-08] MEDS ORDERED: BUPIVACAINE 0.5% PF 10 ML VIAL ONE (07:37)
[2018-04-08] MEDS ORDERED: PROPOFOL 200 MG/20 ML VIAL IV ONE (07:46)
[2018-04-08] MEDS ORDERED: MIDAZOLAM HCL 2 MG/2 ML INJ ONE (07:47)
[2018-04-08] MEDS ORDERED: FENTANYL CITR 100 MCG/2 ML ONE (07:47)
[2018-04-08] MEDS ORDERED: ONDANSETRON 4 MG/2 ML VIAL ONE (07:47)
[2018-04-08] MEDS ORDERED: LIDOCAINE 1% MPF 5 ML VIAL ONE (07:47)
[2018-04-08] MEDS ORDERED: KETOROLAC 30 MG/ML INJ ONE (07:47)
--- NOTE | 2018-04-08 08:19 | P.OP ---
Preoperative diagnosis: Left groin Abscess Postoperative diagnosis: same Primary procedure: I and D and Debridement Left groin abscess Anesthesia: general Estimated blood loss: min Specimen: pus Findings: as above Complications: None Transferred to: Recovery Room Condition: Good
[2018-04-08] MEDS: HYDROMORPHONE HCL 1 MG/ML INJ ONE ×2 (08:29→08:36)
[2018-04-08] MEDS ORDERED: INSULIN -REGULAR HUMAN 50 UNIT/0.5 ML ML ONE (08:46)
[2018-04-08] MEDS ORDERED: DIPHENHYDRAMINE 50 MG/ML VIAL ONE (09:12)
[2018-04-08] MEDS: VANCOMYCIN 1.75 GM in NA CHLORIDE 0.9% 500 ML IVPB SCH ×2 (09:37→20:29)
[2018-04-08] MEDS: CEFEPIME/SWI 2gm 2 GM/20 ML SYR IV SCH ×2 (09:37→20:25)
[2018-04-08] MEDS: CARBAMAZEPINE 200 MG TAB PO SCH (09:37)
[2018-04-08] MEDS: NYSTATIN PWDR 100000 UNIT/GM TOP SCH ×2 (09:38→20:28)
[2018-04-08] MEDS: ACETAMINOPHEN 500 MG TAB PO PRN (09:42)
[2018-04-08] MEDS ORDERED: DIPHENHYDRAMINE 25 MG TAB/CAP PO PRN (11:09)
--- NOTE | 2018-04-08 11:24 | PREOPCON ---
Date of Consultation: 04/07/2018 History Of Present Illness: The patient is a 37-year-old female with multiple medical problems, who had an infection in the bilateral groin, left side being bigger than the right side and she has some fluctuance on the left side. She had started having increasing pain. When she came to the ER, the l eft side opened up and there was a minimal amount of drainage. This has been going off and on for last couple of weeks. She denies any chills or fever currently, but she did have a priority coming to the ER. She has not been diagnosed with diabetes, but she currently appears to have it as her bl ood sugar was greater than 450. She was admitted and I was consulted. She is awake, alert, complain ing of pain. No fever or chills today and minimal discharge. Review of Systems: Otherwise unremarkable. Past Medical History: Diverticulitis, anxiety, ADD, cervical cancer. Past Surgical History: Conization for the cervical cancer, partial colectomy for the diverticulitis and bilateral tubal ligation, cholecystectomy and hernia repair. Allergies: INCLUDE DEMEROL. Social History: She smokes occasionally. Denies alcohol use. Family History: Significant for diabetes. Physical Examination: Vital Signs: Her vital signs currently are stable. She is afebrile. General: She is awake, alert, orient x3. Head and Neck: Cranial nerves 2 through 12 are grossly within normal limits. No neck masses. No JV D. Throat clear. Neck is supple. Chest: Clear. Heart: S1, S2. Abdomen: Soft. Extremities: Neurovascularly intact. Neuro: Nonfocal. Skin: In the groin, on the left side, there is approximately a 6 x 6 cm area of erythema, warmth, ed benny and central small opening with minimal discharge. There is fluctuance in the center. There is t enderness. On the right side, there is a deep cyst present, but there is no evidence of any fluctuan ce or infection at this time that needs surgical intervention. Laboratory Data: Her white count is normal. Laboratory data reviewed. Glucose is elevated. Assessment: Left groin abscess and cellulitis. Recommendation: Admit n.p.o., IV fluid, IV antibiotic. To OR for incision, drainage, and debridemen t. The patient understands the risks, benefits, and alternatives and agrees to procedure. /MODL Voice ID: [id number] Report ID: [id number]
--- NOTE | 2018-04-08 11:39 | PN ---
JEROME Voice ID: [id number] Report ID: [id number] CANDIDO
--- NOTE | 2018-04-08 12:35 | EKG ---
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
--- NOTE | 2018-04-08 15:52 | PN ---
Date of Progress Note: 04/08/2018 Subjective: The patient is seen and examined. Chart reviewed, and case discussed with RN. The ann ent did well postoperatively. Case discussed with Dr. Reza. Medications: List reviewed. Physical Examination: Vital Signs: Temperature 97.7, heart rate 68, blood pressure 137/69, respirations 16, O2 of 97% on 2 L via nasal cannula. General: Awake, alert, oriented x3. Some mild distress due to pain. An obese female. CV: S1 and S2. Regular rate and rhythm. Peripheral pulses present. Respiratory: Moving air well bilaterally. No wheezing. No stridor. Gastrointestinal: Abdomen is soft, nontender, nondistended. Positive bowel sounds. Incision site i s clean, dry, intact. Extremities: No clubbing, cyanosis, or edema. Neurologic: Nonfocal. Laboratory Data: Sodium 139, potassium 3.7, chloride 106, CO2 of 24, BUN 11, creatinine 0.48, glucos e 265, calcium 7.4. WBC 7.9, H and H 11 and 33.5, platelets 316. Wound culture is pending. Assessment And Plan: A 37-year-old female with: 1.Abscess of the left groin, status post incision and drainage by Dr. Reza. The patient did well p ostoperatively. We will continue with broad-spectrum IV antibiotics. The patient is high risk for m ethicillin-resistant Staphylococcus aureus due to poorly controlled diabetes. We will continue with pain control. Monitor signs of worsening and follow up on culture results. 2.New-onset diabetes mellitus type 2. Continue sliding scale insulin. Diabetic education. 3.Obesity, BMI 38. 4.Generalized anxiety disorder, on benzodiazepines. 5.Attention-deficit disorder. 6.Diverticulosis, status post hemicolectomy. 7.History of cervical cancer. 8.Deep vein thrombosis prophylaxis with SCDs and early ambulation. SA/MODL Voice ID: [id number] Report ID: [id number]
[2018-04-08] MEDS: HYDROCODONE/APAP 7.5/325 MG TAB PO PRN (15:56)
--- NOTE | 2018-04-08 18:49 | OP ---
Date of Procedure: 04/08/2018 Surgeon: Roderick Reza MD Preoperative Diagnosis: Left groin abscess, cellulitis. Postoperative Diagnosis: Left groin abscess, cellulitis. Procedure: Incision, drainage, and debridement of left groin abscess. Estimated Blood Loss: Minimal. Specimen: Pus. Findings: As above. Anesthesia: General. Complications: None. Disposition: The patient tolerated the procedure in stable condition and taken to Recovery in good g eneral condition. Description Of Procedure: The patient was brought to the OR and placed in supine position. General anesthesia was begun. The patient was placed in the frog-leg position, prepped and draped in the usu al sterile fashion. Marcaine 0.5% was infiltrated locally. A 15-blade was used to make a 4 cm incis ion. Subcutaneous tissue was divided. The edges of the wound were very necrotic. They were debride d and a curette was used to debride the necrotic tissue in the wound. The wound was irrigated. Blee ding controlled with cautery. Pus evacuated. Loculations broken up and then cultures done. Wound i rrigated and bleeding controlled with cautery. Wet-to-dry normal saline dressing change applied. Th e patient tolerated the procedure in stable condition and was taken to Recovery in good general condition. /MODL Voice ID: [id number] Report ID: [id number]
[2018-04-08] MEDS: HYDROMORPHONE HCL 1 MG/ML INJ IV PRN (20:20)
[2018-04-09] MEDS: HYDROMORPHONE HCL 1 MG/ML INJ IV PRN ×4 (03:42→20:04)
[2018-04-09] MEDS: NA CHLORIDE 0.9% 1,000 ML IV SCH ×4 (03:43→20:09)
[2018-04-09] MEDS: INSULIN -REGULAR HUMAN 50 UNIT/0.5 ML ML SQ SCH ×5 (07:30→21:15)
[2018-04-09] MEDS: ONDANSETRON 4 MG/2 ML VIAL IV PRN ×2 (07:55→21:18)
[2018-04-09] MEDS: CARBAMAZEPINE 200 MG TAB PO SCH (07:55)
[2018-04-09] MEDS: VANCOMYCIN 1.75 GM in NA CHLORIDE 0.9% 500 ML IVPB SCH ×2 (07:56→20:14)
[2018-04-09] MEDS: CEFEPIME/SWI 2gm 2 GM/20 ML SYR IV SCH ×2 (07:56→20:11)
[2018-04-09] MEDS: NYSTATIN PWDR 100000 UNIT/GM TOP SCH ×2 (08:00→20:15)
[2018-04-09] MEDS: clonazePAM 0.5 MG TAB PO PRN (11:57)
--- NOTE | 2018-04-09 15:41 | PN ---
Date of Progress Note: 04/09/2018 Patient is awake, alert. No complaints. Vital signs stable. Afebrile. Cultures pending. Dressing c lean. Assessment: Status post I and D left groin abscess. Recommendations: The patient can be discharged home on broad-spectrum antibiotics. Wound care as or dered. Follow up in my office in 1-2 weeks. BELLA/BUD Voice ID: [id number] Report ID: [id number]
[2018-04-09] MEDS ORDERED: ENOXAPARIN 40 MG/0.4 ML SQ SCH (17:00)
--- NOTE | 2018-04-09 20:50 | PN ---
Date of Progress Note: 04/09/2018 Subjective: The patient seen and examined. Chart reviewed and case discussed with RN and Dr. Reza. The patient still complains of pain. Also reports some headache and some nausea. Medications: List reviewed. Physical Examination: Vital Signs: Temperature 98.7, heart rate 70, blood pressure 126/70, respirations 16, O2 of 99% on r oom air. General: Awake, alert, oriented x3. Some mild distress. Obese female, ill-appearing. CV: S1, S2. Regular rate and rhythm. Peripheral pulses present. Respiratory: Moving air well bilaterally. No wheezing or stridor. Gastrointestinal: Abdomen is soft, nontender, nondistended. Positive bowel sounds. Extremities: No clubbing, cyanosis, or edema. Skin: Examined with female lathe turner, charge nurse, Lorie. Groin abscess incision site clean, dry, i ntact. Packing in place. Neurologic: Nonfocal. Laboratory Data: Hemoglobin A1c 13.2, blood glucose levels have ranged from 172 to 204. Wound cultu res are showing gram-positive cocci in clusters, coagulase positive Staph. ID and sensitivity pendin g. Assessment: A 37-year-old female with: 1.Abscess of the left groin, status post incision and drainage by Dr. Reza. The patient is doing w ell. Still having some pain, headache, high risk for MRSA due to poorly controlled diabetes. Wound cultures are positive for coagulase positive Staph. I will await culture results prior to switch to oral antibiotics. Continue with wound care. 2.New-onset diabetes mellitus type 2. Hemoglobin A1c is 13.2%. We will need to be set up with diab etic education as an outpatient and referral to PCP. 3.Obesity, BMI 38. 4.Generalized anxiety disorder. Continue benzodiazepines. 5.Attention-deficit disorder. 6.Diverticulosis, status post hemicolectomy. 7.History of cervical cancer. 8.Deep vein thrombosis prophylaxis with Lovenox. Plan: Continue broad-spectrum IV antibiotics. Follow up on culture results. Discontinue once ID an d sensitivity have been resulted and can be switched to oral antibiotics. SA/MODL Voice ID: [id number] Report ID: [id number]
[2018-04-09] MEDS ORDERED: INSULIN GLARGINE 100 UNITS/ML SQ SCH (21:00)
[2018-04-09 22:10] VITALS: O2SAT 94
[2018-04-10] MEDS: NA CHLORIDE 0.9% 1,000 ML IV SCH ×2 (03:18→12:34)
[2018-04-10 06:33] LABS: Absolute Lymphocytes (CBC) 1.8 K/uL (0.7-4.9); Absolute Monocytes 0.4 K/uL (0.1-1.3); Absolute Neutrophil 4.4 K/uL (1.8-8.0); Eosinophils % 2.3 % (0-4.4); Hematocrit 31.9 % (36.0-45.0); Lymphocytes % 26.6 % (15.3-44.8); Monocytes % 5.4 % (3.3-12.3); RBC Red Blood Cell Count 4.13 M/uL (3.86-4.86)
[2018-04-10 06:35] LABS: ALT/SGPT 46 U/L (12-78); AST/SGOT 29 U/L (15-37); Albumin 2.8 g/dL (3.4-5.0); Alkaline Phosphatase 141 U/L (45-117); BUN Blood Urea Nitrogen 6 mg/dL (7-18); Bicarbonate 26 mmol/L (21-32); Bilirubin Total 0.2 mg/dL (0.2-1.0); Glucose Level 162 mg/dL (74-106); Potassium 3.4 mmol/L (3.5-5.1); Protein, Total 6.3 g/dL (6.4-8.2); Sodium Level 144 mmol/L (136-145)
[2018-04-10] MEDS: INSULIN -REGULAR HUMAN 50 UNIT/0.5 ML ML SQ SCH ×2 (07:30→11:30)
[2018-04-10] MEDS: CEFEPIME/SWI 2gm 2 GM/20 ML SYR IV SCH (08:47)
[2018-04-10] MEDS: CARBAMAZEPINE 200 MG TAB PO SCH (08:48)
[2018-04-10] MEDS: NYSTATIN PWDR 100000 UNIT/GM TOP SCH (08:48)
[2018-04-10] MEDS: VANCOMYCIN 1.75 GM in NA CHLORIDE 0.9% 500 ML IVPB SCH (08:49)
[2018-04-10] MEDS: HYDROCODONE/APAP 7.5/325 MG TAB PO PRN (09:03)
[2018-04-10] MEDS: clonazePAM 0.5 MG TAB PO PRN (13:02)
[2018-04-10 14:24] VITALS: BP 128/73; TEMP 98.1
[2018-04-10] MEDS: ONDANSETRON 4 MG/2 ML VIAL IV PRN (14:49)
[2018-04-10] MEDS: HYDROMORPHONE HCL 1 MG/ML INJ IV PRN (14:49)
[2018-04-10] MEDS ORDERED: VANCOMYCIN 2 GM in NA CHLORIDE 0.9% 500 ML IVPB SCH (21:00)
--- NOTE | 2018-04-12 18:38 | P.DS ---
Admission Date: 04/07/18 Discharge Date: 04/10/18 Disposition: ROUTINE DISCHARGE Discharge Condition: GOOD Reason for Admission: Abscess Consultations: Dr. Reza, general surgery Procedures: Incision and drainage, 04/09/2018 Brief History of Present Illness: : The patient is a 37-year-old female with past medical history of diverticulitis, cervical cancer, status post conization, who has been in her usual state of health until several days prior to admission when the patient had worsening of a carbuncle around her mons pubis area bilaterally. The patient does report some fluctuance. The pain was moderate, constant, and progressing. The patient denies any alleviating factors, pressure, or worsening symptoms. The patient states that she does not shave, however, uses a Johnson product to get rid of the hair in that area and used [id number] medications, but not topical antibiotics for treatment, which did not improve her condition, therefore came into the ER. She also reported some subjective fever and chills. The patient came into the ER for further evaluation. Her workup revealed a normal white blood cell count. However, her blood glucose level was greater than 450. The patient has not been diagnosed with diabetes previously. The patient was started on broad-spectrum IV antibiotics and then referred for admission. When seen in the ER, the patient was awake, alert, and oriented x3, in some mild distress due to pain. Hospital Course: Patient was admitted for abscess of the left groin. Dr. Reza, general surgery was consulted. Patient underwent incision and drainage and cultures were sent. Wound culture positive for coagulase positive Staph, sensitive to multiple oral antibiotics. Once cultures return, she was then switched over to Bactrim double-strength twice a day for 7 days course. She was discharged with pain medication prescription, insulin and metformin. She was instructed to follow up with the primary care physician for further diabetes management. She will also follow up with general surgery in 2 weeks for the abscess/insertion and drainage. Throughout the stay, patient was found to have an hemoglobin A1c of 13 point to. This is a new finding for patient, she was started on insulin. She was discharged on listless of metformin. She was provided lots of resources for outpatient follow up with diabetes education was also provided to patient. No other medication changes were made. Patient did remain hemodynamically stable throughout the stay otherwise. Vital Signs/Physical Exam: Temp Pulse Resp BP Pulse Ox 98.1 F 72 16 128/73 98 04/10/18 12:00 04/10/18 12:00 04/10/18 12:00 04/10/18 12:00 04/10/18 12:00 General: Alert, In no apparent distress HEENT: Atraumatic, PERRLA, EOMI Neck: Supple, JVD not distended Respiratory: Clear to auscultation bilaterally, Normal air movement Cardiovascular: Regular rate/rhythm, Normal S1 S2 Gastrointestinal: Normal bowel sounds, No tenderness Musculoskeletal: No tenderness Integumentary: No rashes Neurological: Normal speech, Normal tone, Normal affect Lymphatics: No axilla or inguinal lymphadenopathy Laboratory Data at Discharge: WBC 6.8 K/uL (4.3-10.9) 04/10/18 05:21 Hgb 10.7 g/dL (12.0-15.0) L 04/10/18 05:21 Hct 31.9 % (36.0-45.0) L 04/10/18 05:21 Plt Count 281 K/uL (152-406) 04/10/18 05:21 PT 12.1 SECONDS (9.5-12.5) 04/07/18 17:05 INR 1.03 04/07/18 17:05 Sodium 144 mmol/L (136-145) 04/10/18 05:21 Potassium 3.4 mmol/L (3.5-5.1) L 04/10/18 05:21 BUN 6 mg/dL (7-18) L 04/10/18 05:21 Creatinine 0.41 mg/dL (0.55-1.3) L 04/10/18 05:21 Glucose 162 mg/dL (74-106) H 04/10/18 05:21 Magnesium 1.9 mg/dL (1.8-2.4) 04/07/18 17:05 Total Bilirubin 0.2 mg/dL (0.2-1.0) 04/10/18 05:21 AST 29 U/L (15-37) 04/10/18 05:21 ALT 46 U/L (12-78) 04/10/18 05:21 Alkaline Phosphatase 141 U/L (45-117) H 04/10/18 05:21 Home Medications: Carbamazepine [Equetro] 400 mg PO DAILY 04/07/18 Dextroamphetamine/Amphetamine [Adderall 20 mg Tablet] 20 mg PO DAILY 04/07/18 clonazePAM [Klonopin] 0.5 mg PO DAILYPRN PRN 04/07/18 Codeine/APAP [Tylenol W/Codeine #3 tab] 1 tab PO Q6HP PRN #10 tab 04/10/18 Insulin Glargine Human [Lantus*] 10 units SQ BEDTIME #1 ml 04/10/18 Metformin HCl 1,000 mg PO BID #60 tablet 04/10/18 Smz./Tmp. [Bactrim Ds 800 MG/160 MG] 1 tab PO BID #14 tab 04/10/18 New Medications: Codeine/APAP [Tylenol W/Codeine #3 tab] 1 tab PO Q6HP PRN #10 tab PRN Reason: Pain Insulin Glargine Human [Lantus*] 10 units SQ BEDTIME #1 ml Metformin HCl 1,000 mg PO BID #60 tablet Smz./Tmp. [Bactrim Ds 800 MG/160 MG] 1 tab PO BID #14 tab Patient Discharge Instructions: Please follow up with a primary care physician - list has been provided to you. Please follow up with Dr. Reza in 2 weeks. Information provided to you. Please return to the Emergency Room for worsening symptoms. Diet: ADA Activity: Ad jazzmine Followup: Roderick Reza MD [ACTIVE - CAN ADMIT] - 1-2 Weeks Time spent managing pt's care (in minutes): 55
== END 2018-04-10 15:25 | disposition home or self-care (01) | DRG 571 ==
LOC: ER 14:50 → ERHOLD 17:06 → 2ND 20:07
PROVIDERS: ADMIT Hospitalist; ATTEND Family Medicine
PROC: 0JBC0ZZ Excision of Pelvic Region Subcutaneous Tissue and Fascia, Open Approach (ICD-10-PCS; principal; 2018-04-08 08:00)
DX: L02.214 Cutaneous abscess of groin (principal); K57.92 Diverticulitis of intestine, part unspecified, without perforation or abscess without bleeding; Z85.41 Personal history of malignant neoplasm of cervix uteri; F41.1 Generalized anxiety disorder; F17.210 Nicotine dependence, cigarettes, uncomplicated; E11.9 Type 2 diabetes mellitus without complications; F98.8 Other specified behavioral and emotional disorders with onset usually occurring in childhood and adolescence; L03.314 Cellulitis of groin; E66.9 Obesity, unspecified; Z68.38 Body mass index [BMI] 38.0-38.9, adult; B95.7 Other staphylococcus as the cause of diseases classified elsewhere
CPT/HCPCS: 36415; 71045; 80048; 80053; 80076; 80202; 81003; 81025; 82962; 83036; 83735; 83880; 84484; 84703; 85025; 85610; 87070; 87075; 87077; 87186; 87205; 93005; 94760; 96365; 96372; 96375; 99285; J0692; J1170; J2250; J2405; J2543; J2704; J3010; J3370; J7030

== ENCOUNTER 2018-04-11 12:49 | Emergency (ER) | payer OTHER ==
[2018-04-11] MEDS ORDERED: NA CHLORIDE 0.9% 1,000 ML ONE (14:03)
[2018-04-11] MEDS ORDERED: ONDANSETRON 4 MG/2 ML VIAL ONE ×2 (14:12→16:07)
[2018-04-11] MEDS ORDERED: MORPHINE 4 MG/ML SYR ONE (14:12)
[2018-04-11 14:37] LABS: Absolute Lymphocytes (CBC) 1.8 K/uL (0.7-4.9); Absolute Monocytes 0.4 K/uL (0.1-1.3); Absolute Neutrophil 6.6 K/uL (1.8-8.0); Basophils % 0.8 % (0-1.3); Eosinophils % 1.1 % (0-4.4); Lymphocytes % 20.2 % (15.3-44.8); MPV 7.9 fL (7.6-11.3); Monocytes % 4.2 % (3.3-12.3)
--- NOTE | 2018-04-11 14:40 | RAD REPORT ---
EXAM DESCRIPTION: CT - Head Brain Wo Cont - 04/11/2018 2:29 pm CLINICAL HISTORY: HEADACHE Headache, drowsiness COMPARISON: No comparisons TECHNIQUE: All CT scans are performed using dose optimization technique as appropriate and may inclu de automated exposure control or mA/KV adjustment according to patient size. FINDINGS: No intracranial hemorrhage, hydrocephalus or extra-axial fluid collection.No areas of brai n edema or evidence of midline shift. The paranasal sinuses and mastoids are clear. The calvarium is intact. IMPRESSION: No acute intracranial abnormality.
[2018-04-11 14:49] LABS: BUN Blood Urea Nitrogen 5 mg/dL (7-18); Bicarbonate 30 mmol/L (21-32); Glucose Level 208 mg/dL (74-106); Potassium 3.3 mmol/L (3.5-5.1); Sodium Level 140 mmol/L (136-145)
[2018-04-11 15:08] LABS: Platelet Estimate ADEQ; Urine White Blood Cell Casts OK
[2018-04-11 15:09] LABS: Blood Morphology Comment NOT SEEN (NOT SEEN)
[2018-04-11] MEDS ORDERED: KETOROLAC 30 MG/ML INJ ONE (16:06)
[2018-04-11] MEDS ORDERED: POTASSIUM CL SA 10 MEQ TAB PO ONE (16:09)
--- NOTE | 2018-04-11 17:26 | ER ---
Nurse's Notes [facility] Name: Ammy Howell Age: 37 yrs Sex: Female : 1980 Arrival Date: 04/11/2018 Time: 12:51 Bed 13 Private MD: None, None Diagnosis: Headache Presentation: 04/11 13:05 Presenting complaint: Headache and nausea since this morning. Home BGL 215. Pt was hb discharged from hospital on Monday, had I\\T\\D of left groin abscess Monday by Dr. Reza. Transition of care: patient was not received from another setting of care. Onset of symptoms was April 11, 2018. Risk Assessment: Do you want to hurt yourself or someone else? Patient reports no desire to harm self or others. Care prior to arrival: None. 13:05 Method Of Arrival: Wheelchair hb 13:05 Acuity: LAISHA 3 hb 13:40 Initial Sepsis Screen: Does the patient meet any 2 criteria? No. Patient's initial sg sepsis screen is negative. Does the patient have a suspected source of infection? No. Patient's initial sepsis screen is negative. Triage Assessment: 13:40 Headache History: Denies prior headaches. General: Behavior is calm, cooperative, sg appropriate for age. Pain: Pain Also complains of nausea, sleeplessness. INSPECTOR DIALS: 13:08 LMP 03/29/2018 hb Historical: - Allergies: 13:08 Demerol; hb - Home Meds: 13:08 Adderall XR 20 mg Oral cp24 1 cap once daily [Active]; Equetro 200 mg Oral CM12 2 caps hb daily [Active]; Klonopin 0.5 mg Oral tab 1 tab daily prn [Active]; - PMHx: 13:08 Bipolar disorder; cervical cancer; Depression; Diverticulitis; hb - PSHx: 13:08 Cholecystectomy; part of large instestine removed; Tubal ligation; Hernia repair; hb - Immunization history:: Adult Immunizations up to date. - Social history:: Smoking status: Patient uses tobacco products, denies chronic smoking, but will smoke occasionally. - Ebola Screening: : No symptoms or risks identified at this time. Screenin:21 Abuse screen: Denies threats or abuse. Denies injuries from another. Nutritional sg screening: No deficits noted. Tuberculosis screening: No symptoms or risk factors identified. Never had TB. Fall Risk None identified. Assessment: 13:20 Reassessment: pt family at the nurses station, family reports " Her headache is getting sg much worse, she said she cannot take it.". 13:32 Reassessment: pt family at the nurses station, reports " she would like a pillow, sg because her head is hurting." Informed pt and pt family that ERP notified and is on the way to assess pt. pt stated understanding, a pillow and a warm blanket are provided to the pt. 13:45 General: Appears in no apparent distress. uncomfortable, well groomed, well developed, sg well nourished, Behavior is calm, cooperative, appropriate for age. Pain: Complains of pain in head Pain does not radiate. Quality of pain is described as aching, sharp, stabbing, throbbing. Neuro: Level of Consciousness is awake, alert, obeys commands, Oriented to person, place, time, situation, Strings Teacher are equal bilaterally Moves all extremities. Full function Gait is steady, Speech is normal, Facial symmetry appears normal. Cardiovascular: Capillary refill is brisk in bilateral fingers Patient's skin is warm and dry. Chest pain is denied. Respiratory: Airway is patent Respiratory effort is even, unlabored, Respiratory pattern is regular, symmetrical. GI: No signs and/or symptoms were reported involving the gastrointestinal system. : No signs and/or symptoms were reported regarding the genitourinary system. EENT: No signs and/or symptoms were reported regarding the EENT system. Derm: Skin is intact, is healthy with good turgor, Skin is dry, Skin is pale, Skin temperature is warm. Musculoskeletal: No signs and/or symptoms reported regarding the musculoskeletal system. Vital Signs: 13:04 BP 138 / 88; Pulse 88; Resp 16; Temp 98.5; Pulse Ox 100% ; Pain 9/10; hb 15:15 BP 130 / 82; Pulse 78; Resp 17; Pulse Ox 99% on R/A; Pain 7/10; sg 16:15 BP 134 / 89; Pulse 67; Resp 17 S; Pulse Ox 100% on R/A; Pain 7/10; sg 17:24 BP 123 / 72; Pulse 73; Resp 18; Temp 98.4(O); Pulse Ox 100% on R/A; mh5 ED Course: 12:51 Patient arrived in ED. mr 12:52 None, None is Private Physician. mr 13:07 Triage completed. hb 13:07 Arm band placed on. hb 13:10 Patient has correct armband on for positive identification. Bed in low position. Call mh5 light in reach. Side rails up X 1. Adult w/ patient. Warm blanket given. case monitor on. Pulse ox on. NIBP on. 13:34 Jimbo Hidalgo MD is Attending Physician. kdr 13:34 Max Delaney RN is Primary Nurse. sg 14:14 Radiology exam delayed due to nurse in room with patient, starting iv. vr 14:20 Inserted saline lock: 22 gauge in right antecubital area, using aseptic technique. ss Blood collected. 14:29 CT Head Brain wo Cont In Process Unspecified. EDMS 17:25 Sathya Whitley MD is Referral Physician. kdr 17:55 No provider procedures requiring assistance completed. IV discontinued, intact, ss bleeding controlled, No redness/swelling at site. Pressure dressing applied. Administered Medications: 14:10 Drug: NS 0.9% 1000 ml Route: IV; Rate: 1 bolus; Site: right antecubital; sg 15:10 Follow up: Response: No adverse reaction; IV Intake: 1000ml sg 14:10 Drug: morphine 4 mg Route: IVP; Site: right antecubital; sg 15:10 Follow up: Response: No adverse reaction; Pain is decreased sg 14:10 Drug: Zofran 4 mg Route: IVP; Site: right antecubital; sg 15:11 Follow up: Response: No adverse reaction; Nausea is decreased sg 16:10 Drug: TORadol 30 mg Route: IVP; Site: right antecubital; sg 16:10 Drug: Zofran 4 mg Route: IVP; Site: right antecubital; sg 16:23 Drug: Potassium Chloride 40 mEq Route: PO; sg Point of Care Testing: Blood Glucose: 13:04 Blood Glucose: 211 mg/dL; hb Ranges: Intake: 15:10 IV: 1000ml; Total: 1000ml. sg Outcome: 17:25 Discharge ordered by . kdr 17:55 Discharged to home ambulatory, with family. sg 17:55 Condition: good 17:55 Discharge instructions given to patient, Instructed on discharge instructions, follow up and referral plans. no drinking with medication, no driving heavy equipment, medication usage, safety practices, Demonstrated understanding of instructions, follow-up care, medications, Prescriptions given X 2. 18:00 Patient left the ED. ss Signatures: Dispatcher [employer] EDMax Mckeon RN KAYLEY Jimbo Hidalgo MD MD kdr Rivera, Mary mr KatiuskaLulu RN RN ss Davis, Victoria vr Baxter, Heather, RN RN Katia Johnson [facility] Corrections: (The following items were deleted from the chart) 18:01 17:55 Discharged to home ambulatory, with family, [facility] [place] 18:01 17:55 Condition: good [facility] 18:01 17:55 Discharge instructions given to patient, Instructed on discharge instructions, follow up and referral plans. no drinking with medication, no driving heavy equipment, medication usage, safety practices, Demonstrated understanding of instructions, follow-up care, medications, Prescriptions given X 2, ss
--- NOTE | 2018-04-11 17:26 | EDPHYS ---
Physician Documentation [facility] Name: Ammy Howell Age: 37 yrs Sex: Female : 1980 Arrival Date: 04/11/2018 Time: 12:51 Bed 13 Private MD: None, None ED Physician Jimbo Hidalgo HPI: 04/11 17:17 This 37 yrs old Female presents to ER via Wheelchair with complaints of High kdr Blood Sugar, Headache. 17:17 The patient had gradual onset of SIMPSON this AM and has also noticed that her BS was kdr elevated (250). She was recently diagnosed with DM and had an abscess I\T\D'd by Dr. Reza. She has had a SIMPSON recently that was similar to this but o/w has been at baseline. She had nausea but no vomiting and no fever or chills. Onset: The symptoms/episode began/occurred this morning. Severity of symptoms: At their worst the symptoms were moderate in the emergency department the symptoms are unchanged. The patient has experienced a previous episode, last week. The patient has been recently seen by a physician: As noted above. DIRECTOR CENTER: 13:08 LMP 03/29/2018 hb Historical: - Allergies: 13:08 Demerol; hb - Home Meds: 13:08 Adderall XR 20 mg Oral cp24 1 cap once daily [Active]; Equetro 200 mg Oral CM12 2 caps hb daily [Active]; Klonopin 0.5 mg Oral tab 1 tab daily prn [Active]; - PMHx: 13:08 Bipolar disorder; cervical cancer; Depression; Diverticulitis; hb - PSHx: 13:08 Cholecystectomy; part of large instestine removed; Tubal ligation; Hernia repair; hb - Immunization history:: Adult Immunizations up to date. - Social history:: Smoking status: Patient uses tobacco products, denies chronic smoking, but will smoke occasionally. - Ebola Screening: : No symptoms or risks identified at this time. ROS: 17:17 Constitutional: Negative for fever, chills, and weight loss, Eyes: Negative for injury, kdr pain, redness, and discharge, Neck: Negative for injury, pain, and swelling, Cardiovascular: Negative for chest pain, palpitations, and edema, Respiratory: Negative for shortness of breath, cough, wheezing, and pleuritic chest pain, Abdomen/GI: Negative for abdominal pain, nausea, vomiting, diarrhea, and constipation, Back: Negative for injury and pain, : Negative for injury, bleeding, discharge, and swelling, MS/Extremity: Negative for injury and deformity, Skin: Negative for injury, rash, and discoloration, Neuro: Negative for headache, weakness, numbness, tingling, and seizure activity. Psych: Negative for depression, anxiety, suicide ideation, homicidal ideation, and hallucinations, Allergy/Immunology: Negative for hives, rash, and allergies, Endocrine: Negative for neck swelling, polydipsia, polyuria, polyphagia, and marked weight changes, Hematologic/Lymphatic: Negative for swollen nodes, abnormal bleeding, and unusual bruising. 17:17 Skin: Positive for Packed wound in Left groin. 17:17 Neuro: Positive for headache, Left side of head and face. kdr Exam: 17:17 Constitutional: This is a well developed, well nourished patient who is awake, alert, kdr and in no acute distress. Head/Face: Normocephalic, atraumatic. ENT: Nares patent. No nasal discharge, no septal abnormalities noted. Tympanic membranes are normal and external auditory canals are clear. Oropharynx with no redness, swelling, or masses, exudates, or evidence of obstruction, uvula midline. Mucous membranes moist. Vital Signs: 13:04 BP 138 / 88; Pulse 88; Resp 16; Temp 98.5; Pulse Ox 100% ; Pain 9/10; hb 15:15 BP 130 / 82; Pulse 78; Resp 17; Pulse Ox 99% on R/A; Pain 7/10; sg 16:15 BP 134 / 89; Pulse 67; Resp 17 S; Pulse Ox 100% on R/A; Pain 7/10; sg 17:24 BP 123 / 72; Pulse 73; Resp 18; Temp 98.4(O); Pulse Ox 100% on R/A; mh5 MDM: 17:17 Data reviewed: vital signs, nurses notes, lab test result(s), radiologic studies. kdr Counseling: I had a detailed discussion with the patient and/or guardian regarding: the historical points, exam findings, and any diagnostic results supporting the discharge/admit diagnosis, lab results, radiology results, the need for outpatient follow up. ED course: Discussed all findings and potential need for LP. The patient states she has an appointment with Dr. Whitley tomorrow and would rather follow-up with him. She was feeling better and felt that much of her current symptoms were due to stress. 17:25 Patient medically screened. [facility] 04/11 13:14 Order name: Glucose, Ancillary Testing; Complete Time: 13:49 EDMS 04/11 13:50 Order name: CBC with Diff; Complete Time: 15:53 kdr 04/11 13:50 Order name: Chem 7; Complete Time: 15:53 [facility] 04/11 13:59 Order name: CT Head Brain wo Cont; Complete Time: 15:53 kdr 04/11 14:43 Order name: CBC Smear Scan; Complete Time: 15:53 EDMS 04/11 13:51 Order name: IV; Complete Time: 14:27 sg Administered Medications: 14:10 Drug: NS 0.9% 1000 ml Route: IV; Rate: 1 bolus; Site: right antecubital; sg 15:10 Follow up: Response: No adverse reaction; IV Intake: 1000ml sg 14:10 Drug: morphine 4 mg Route: IVP; Site: right antecubital; sg 15:10 Follow up: Response: No adverse reaction; Pain is decreased sg 14:10 Drug: Zofran 4 mg Route: IVP; Site: right antecubital; sg 15:11 Follow up: Response: No adverse reaction; Nausea is decreased sg 16:10 Drug: TORadol 30 mg Route: IVP; Site: right antecubital; sg 16:10 Drug: Zofran 4 mg Route: IVP; Site: right antecubital; sg 16:23 Drug: Potassium Chloride 40 mEq Route: PO; sg Point of Care Testing: Blood Glucose: 13:04 Blood Glucose: 211 mg/dL; hb Ranges: Critical Glucose Levels:Adult <50 mg/dl or >400 mg/dl <40 mg/dl or >180 mg/dl Disposition: 04/11/18 17:25 Discharged to Home. Impression: Headache. - Condition is Stable. - Discharge Instructions: General Headache Without Cause, Hyperglycemia, [id number]. - Prescriptions for Zofran 4 mg Oral Tablet - take 1 tablet by ORAL route every 4-6 hours As needed; 6 tablet. Tramadol 50 mg Oral Tablet - take 1 tablet by ORAL route every 8 hours as needed; 12 tablet. - Medication Reconciliation Form, Thank You Letter, Antibiotic Education, Prescription Opioid Use form. - Follow up: Sathya Whitley MD; When: Tomorrow; Reason: If symptoms return, Further diagnostic work-up, Recheck today's complaints, Continuance of care, Re-evaluation by your physician. - Problem is an acute exacerbation. - Symptoms have improved. Signatures: Dispatcher [employer] EDMS Max Delaney RN RN sg Jimbo Hidalgo MD MD kdr Smirch, Shelby, RN RN ss Juliane Guthrie RN RN Corrections: (The following items were deleted from the chart) 18:00 17:25 04/11/2018 17:25 Discharged to Home. Impression: Headache. Condition is Stable. ss Forms are Medication Reconciliation Form, Thank You Letter, Antibiotic Education, Prescription Opioid Use. Follow up: Sathya Whitley; When: Tomorrow; Reason: If symptoms return, Further diagnostic work-up, Recheck today's complaints, Continuance of care, Re-evaluation by your physician. Problem is an acute exacerbation. Symptoms have improved. kdr
[2018-04-11 18:12] VITALS: O2SAT 100
[2018-04-11 18:13] VITALS: BP 123/72; TEMP 98.4
== END 2018-04-11 18:00 | disposition home or self-care (01) ==
LOC: ER 12:49
DX: R51 Headache (principal); R73.9 Hyperglycemia, unspecified; F31.9 Bipolar disorder, unspecified; F32.9 Major depressive disorder, single episode, unspecified; C53.9 Malignant neoplasm of cervix uteri, unspecified; Z72.0 Tobacco use
CPT/HCPCS: 36415; 70450; 80048; 82962; 85025; 96374; 96375; 99284; J2405; J7030

== ENCOUNTER 2018-04-13 16:33 | Emergency (ER) | payer OTHER ==
[2018-04-13 17:57] LABS: Urine Blood NEGATIVE (NEG); Urine Glucose NEGATIVE (NEG); Urine Protein 1+ (NEG); Urine pH 8.5 (5.0-7.0)
[2018-04-13] MEDS ORDERED: METOCLOPRAMIDE 10 MG/2mL INJ ONE (18:04)
[2018-04-13] MEDS ORDERED: DIPHENHYDRAMINE 50 MG/ML VIAL ONE (18:04)
[2018-04-13] MEDS ORDERED: NA CHLORIDE 0.9% 1,000 ML ONE (18:05)
[2018-04-13 18:29] LABS: BUN Blood Urea Nitrogen 5 mg/dL (7-18); Bicarbonate 27 mmol/L (21-32); Glucose Level 159 mg/dL (74-106); Potassium 3.7 mmol/L (3.5-5.1); Sodium Level 138 mmol/L (136-145)
[2018-04-13 19:08] LABS: Absolute Monocytes 0.4 K/uL (0.1-1.3); Absolute Neutrophil 8.8 K/uL (1.8-8.0); Eosinophils % 0.5 % (0-4.4); Hematocrit 38.3 % (36.0-45.0); MPV 7.9 fL (7.6-11.3); Monocytes % 3.2 % (3.3-12.3); RBC Red Blood Cell Count 4.93 M/uL (3.86-4.86)
[2018-04-13] MEDS ORDERED: ONDANSETRON 4 MG/2 ML VIAL ONE (19:17)
--- NOTE | 2018-04-13 19:37 | ER ---
Nurse's Notes [facility] Name: Ammy Howell Age: 37 yrs Sex: Female : 1980 Arrival Date: 04/13/2018 Time: 16:35 Bed 15 Private MD: Sathya Whitley Diagnosis: Migraine Presentation: 04/13 16:43 Presenting complaint: Patient states: today i started vomiting x 4; took nausea meds hj but not helping; denies abd pain; reports headache; recently diagnosed with DM;. Transition of care: patient was not received from another setting of care. Onset of symptoms was April 13, 2018. Risk Assessment: Do you want to hurt yourself or someone else? Patient reports no desire to harm self or others. Initial Sepsis Screen: Does the patient meet any 2 criteria? No. Patient's initial sepsis screen is negative. Does the patient have a suspected source of infection? No. Patient's initial sepsis screen is negative. Care prior to arrival: None. 16:43 Method Of Arrival: Ambulatory 16:43 Acuity: LAISHA 3 Triage Assessment: 16:45 General: Appears in no apparent distress. uncomfortable, Behavior is calm, cooperative, hj appropriate for age. Pain: Complains of pain in head. GI: Reports nausea, vomiting. 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 04/04/2018 Historical: - Allergies: 16:45 Demerol; hj - Home Meds: 16:45 Adderall XR 20 mg Oral cp24 1 cap once daily [Active]; Klonopin 0.5 mg Oral tab 1 tab hj daily prn [Active]; 17:50 Equetro 400 oral CM12 [Active]; acetaminophen-codeine 300-30 mg Oral tab 1 tab every 6 em hours [Active]; ferrous sulfate 325 mg (65 mg iron) Oral tab daily [Active]; Insulin Glargine Sub-Q [Active]; losartan 50 mg oral tab 1 tab once daily [Active]; metformin 1,000 mg Oral tab 1 tab 2 times per day [Active]; semaglutide 0.25 mg subq [Active]; - PMHx: 16:45 Bipolar disorder; cervical cancer; Depression; Diverticulitis; hj - PSHx: 16:45 Cholecystectomy; part of large instestine removed; Tubal ligation; Hernia repair; hj - Immunization history:: Adult Immunizations up to date. - Social history:: Smoking status: Patient/guardian denies using tobacco, Patient/guardian denies using alcohol. - Ebola Screening: : Patient negative for fever greater than or equal to 101.5 degrees Fahrenheit, and additional compatible Ebola Virus Disease symptoms Patient denies exposure to infectious person Patient denies travel to an Ebola-affected area in the 21 days before illness onset. Screenin:46 Abuse screen: Denies threats or abuse. Denies injuries from another. Nutritional hj screening: No deficits noted. Tuberculosis screening: No symptoms or risk factors identified. Fall Risk None identified. Assessment: 16:46 GI: Abdomen is non-distended, obese. hj 17:40 General: Appears in no apparent distress. uncomfortable, well groomed, well developed, em well nourished, Behavior is calm, cooperative, Reports chills for 1-2 days, feeling ill for 1-2 days. Pain: Complains of pain in head Pain currently is 10 out of 10 on a pain scale. Quality of pain is described as sharp, shooting. Neuro: Level of Consciousness is awake, alert, obeys commands, Oriented to person, place, time, situation, Kitchen Work Supervisor are equal bilaterally Moves all extremities. Gait is steady, Speech is normal, Facial symmetry appears normal, Pupils are PERRLA, Intact Reports headache photophobia. Cardiovascular: Capillary refill < 3 seconds Patient's skin is warm and dry. Respiratory: Airway is patent Respiratory effort is even, unlabored, Respiratory pattern is regular, symmetrical. EENT: Oral mucosa is moist. Throat is clear is pink. Derm: Skin is intact, is healthy with good turgor, Skin is pink, warm \T\ dry. Musculoskeletal: Capillary refill < 3 seconds, Range of motion: intact in all extremities. 18:50 Reassessment: Patient appears in no apparent distress at this time. Patient and/or em family updated on plan of care and expected duration. Pain level reassessed. Patient is alert, oriented x 3, equal unlabored respirations, skin warm/dry/pink. rates headache 6/10 Patient denies pain at this time. 19:15 Reassessment: Patient appears in no apparent distress at this time. Patient and/or cc3 family updated on plan of care and expected duration. Pain level reassessed. Patient is alert, oriented x 3, equal unlabored respirations, skin warm/dry/pink. Received this female patient from morning shift CIVIL RIGHTS REPRESENTATIVEJeanna Anderson as a case of vomiting and headache. With IV cannula gauge 22 at the right ACV with ongoing IV fluid bolus of NS 1 liter infusing well. 19:50 Reassessment: Patient appears in no apparent distress at this time. Patient and/or cc3 family updated on plan of care and expected duration. Pain level reassessed. Patient is alert, oriented x 3, equal unlabored respirations, skin warm/dry/pink. EITAN Tsai discharged the patient home, no prescription given. IV cannula removed and patient left ER vitally stable and ambulatory with her family. Patient states feeling better. Patient states symptoms have improved. Vital Signs: 16:46 BP 123 / 87; Pulse 77; Resp 18; Temp 98.0(O); Pulse Ox 98% on R/A; Weight 107.05 kg; hj Height 5 ft. 4 in. (162.56 cm); Pain 10/10; 19:20 BP 124 / 82; Pulse 79; Resp 20 S; Temp 99.1(O); Pulse Ox 96% on R/A; cc3 16:46 Body Mass Index 40.51 (107.05 kg, 162.56 cm) hj ED Course: 16:35 Patient arrived in ED. rg4 16:36 Sathya Whitley MD is Private Physician. rg4 16:45 Triage completed. hj 16:46 Arm band placed on right wrist. hj 16:46 Patient has correct armband on for positive identification. Placed in gown. Bed in low hj position. Call light in reach. Side rails up X 1. 17:18 Santi Tsai [facility] is [facility]. jr8 17:18 Jimbo Hidalgo MD is Attending Physician. jr8 17:21 Justin Jiménez LVN is Primary Nurse. em 19:36 Sathya Whitley MD is Referral Physician. jr8 19:50 No provider procedures requiring assistance completed. IV discontinued, intact, cc3 bleeding controlled, No redness/swelling at site. Pressure dressing applied. Administered Medications: 18:13 Drug: Reglan 10 mg Route: IVP; Site: right antecubital; iw 18:41 Follow up: Response: No adverse reaction; Marked relief of symptoms em 18:13 Drug: Benadryl 25 mg Route: IVP; Site: right antecubital; iw 18:42 Follow up: Response: No adverse reaction em 18:14 Drug: NS 0.9% 1000 ml Route: IV; Rate: 1000 ml; Site: right antecubital; iw 19:10 Drug: Zofran 4 mg Route: IVP; Site: right antecubital; iw 19:34 Follow up: Response: No adverse reaction; Nausea is decreased cc3 Point of Care Testing: Blood Glucose: 18:00 Blood Glucose: 152 mg/dL; em Ranges: Outcome: 19:36 Discharge ordered by MD. jr8 19:50 Discharged to home ambulatory, with family. cc3 19:50 Condition: stable 19:50 Discharge instructions given to patient, family, Instructed on discharge instructions, follow up and referral plans. Demonstrated understanding of instructions, follow-up care. 19:58 Patient left the ED. cc3 Signatures: Justin Jiménez, DEV CIVIL RIGHTS REPRESENTATIVE em Rachna Quintero RN RN iw Santi Tsai PA PA jr8 Joaquin, Henry, RN RN hj Garcia, Rubi 4 Nory Tomlinson cc3 Corrections: (The following items were deleted from the chart) 17:50 16:45 Home Meds: Equetro 200 mg Oral CM12 2 caps daily; em 19:57 19:50 Reassessment: Patient appears in no apparent distress at this time. Patient cc3 and/or family updated on plan of care and expected duration. Pain level reassessed. Patient is alert, oriented x 3, equal unlabored respirations, skin warm/dry/pink. EITAN Tsai discharged the patient home, no prescription given. IV cannula removed and patient left ER vitally stable and ambulatory with her family. cc3
--- NOTE | 2018-04-13 19:37 | EDPHYS ---
Physician Documentation [facility] Name: Ammy Howell Age: 37 yrs Sex: Female : 1980 Arrival Date: 04/13/2018 Time: 16:35 Bed 15 Private MD: Sathya Whitley ED Physician Jimbo Hidalgo HPI: 04/13 18:05 This 37 yrs old Female presents to ER via Ambulatory with complaints of jr8 Vomiting, Headache. 18:05 Onset: The symptoms/episode began/occurred gradually, 1 week(s) ago. Possible causes: jr8 unknown. The symptoms are aggravated by nothing. The symptoms are alleviated by nothing. Associated signs and symptoms: Pertinent positives: vomiting. Severity of symptoms: At their worst the symptoms were moderate in the emergency department the symptoms are unchanged. The patient has not experienced similar symptoms in the past. The patient has been recently seen by a physician:. Patient admitted and d/c'd recently for boil and new onset diabetes. Stated that she had surgical drainage of abscess and while in hospital was started on new medicine to control hyperglycemia. Was also on antibiotics intravenously. Before being discharged started with headache. Since then has had no relief with prescribed or OTC medicine. Vomiting with headache present. Denies any other symptoms . 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 04/04/2018 Historical: - Allergies: 16:45 Demerol; hj - Home Meds: 16:45 Adderall XR 20 mg Oral cp24 1 cap once daily [Active]; Klonopin 0.5 mg Oral tab 1 tab hj daily prn [Active]; 17:50 Equetro 400 oral CM12 [Active]; acetaminophen-codeine 300-30 mg Oral tab 1 tab every 6 em hours [Active]; ferrous sulfate 325 mg (65 mg iron) Oral tab daily [Active]; Insulin Glargine Sub-Q [Active]; losartan 50 mg oral tab 1 tab once daily [Active]; metformin 1,000 mg Oral tab 1 tab 2 times per day [Active]; semaglutide 0.25 mg subq [Active]; - PMHx: 16:45 Bipolar disorder; cervical cancer; Depression; Diverticulitis; hj - PSHx: 16:45 Cholecystectomy; part of large instestine removed; Tubal ligation; Hernia repair; hj - Immunization history:: Adult Immunizations up to date. - Social history:: Smoking status: Patient/guardian denies using tobacco, Patient/guardian denies using alcohol. - Ebola Screening: : Patient negative for fever greater than or equal to 101.5 degrees Fahrenheit, and additional compatible Ebola Virus Disease symptoms Patient denies exposure to infectious person Patient denies travel to an Ebola-affected area in the 21 days before illness onset. ROS: 18:05 Eyes: Negative for injury, pain, redness, and discharge, ENT: Negative for injury, jr8 pain, and discharge, Neck: Negative for injury, pain, and swelling, Cardiovascular: Negative for chest pain, palpitations, and edema, Respiratory: Negative for shortness of breath, cough, wheezing, and pleuritic chest pain, Back: Negative for injury and pain, MS/Extremity: Negative for injury and deformity, Skin: Negative for injury, rash, and discoloration. 18:05 Abdomen/GI: Positive for nausea and vomiting, Negative for abdominal pain, diarrhea, abdominal cramps, abdominal distension. 18:05 Neuro: Positive for headache, Negative for altered mental status, dizziness, gait disturbance, hearing loss, loss of consciousness, numbness, seizure activity, speech changes, syncope, near syncope, tingling, tinnitus, tremor, visual changes, weakness. Exam: 18:05 Eyes: Pupils equal round and reactive to light, extra-ocular motions intact. Lids and jr8 lashes normal. Conjunctiva and sclera are non-icteric and not injected. Cornea within normal limits. Periorbital areas with no swelling, redness, or edema. ENT: Nares patent. No nasal discharge, no septal abnormalities noted. Tympanic membranes are normal and external auditory canals are clear. Oropharynx with no redness, swelling, or masses, exudates, or evidence of obstruction, uvula midline. Mucous membranes moist. Neck: Trachea midline, no thyromegaly or masses palpated, and no cervical lymphadenopathy. Supple, full range of motion without nuchal rigidity, or vertebral point tenderness. No Meningismus. Cardiovascular: Regular rate and rhythm with a normal S1 and S2. No gallops, murmurs, or rubs. Normal PMI, no JVD. No pulse deficits. Respiratory: Lungs have equal breath sounds bilaterally, clear to auscultation and percussion. No rales, rhonchi or wheezes noted. No increased work of breathing, no retractions or nasal flaring. Abdomen/GI: Soft, non-tender, with normal bowel sounds. No distension or tympany. No guarding or rebound. No evidence of tenderness throughout. Back: No spinal tenderness. No costovertebral tenderness. Full range of motion. Skin: Warm, dry with normal turgor. Normal color with no rashes, no lesions, and no evidence of cellulitis. MS/ Extremity: Pulses equal, no cyanosis. Neurovascular intact. Full, normal range of motion. Neuro: Awake and alert, GCS 15, oriented to person, place, time, and situation. Cranial nerves II-XII grossly intact. Motor strength 5/5 in all extremities. Sensory grossly intact. Cerebellar exam normal. Normal gait. Vital Signs: 16:46 BP 123 / 87; Pulse 77; Resp 18; Temp 98.0(O); Pulse Ox 98% on R/A; Weight 107.05 kg; hj Height 5 ft. 4 in. (162.56 cm); Pain 10/10; 19:20 BP 124 / 82; Pulse 79; Resp 20 S; Temp 99.1(O); Pulse Ox 96% on R/A; cc3 16:46 Body Mass Index 40.51 (107.05 kg, 162.56 cm) hj MDM: 17:18 Patient medically screened. [facility] 19:35 Data reviewed: vital signs, nurses notes, lab test result(s), and as a result, I will jr8 discharge patient. Data interpreted: Pulse oximetry: on room air is 96 %. Interpretation: normal. Counseling: I had a detailed discussion with the patient and/or guardian regarding: the historical points, exam findings, and any diagnostic results supporting the discharge/admit diagnosis, lab results, the need for outpatient follow up, a family practitioner, to return to the emergency department if symptoms worsen or persist or if there are any questions or concerns that arise at home. Response to treatment: the patient's symptoms have markedly improved after treatment, patient is well hydrated. 04/13 17:40 Order name: CBC with Diff; Complete Time: 19:20 [facility] 04/13 17:40 Order name: Basic Metabolic Panel; Complete Time: 18:34 [facility] 04/13 17:45 Order name: Urine Dipstick--Ancillary (enter results); Complete Time: 17:57 eb 04/13 17:40 Order name: IV; Complete Time: 18:18 jr8 04/13 17:40 Order name: Glucose Level; Complete Time: 18:18 jr8 Administered Medications: 18:13 Drug: Reglan 10 mg Route: IVP; Site: right antecubital; iw 18:41 Follow up: Response: No adverse reaction; Marked relief of symptoms em 18:13 Drug: Benadryl 25 mg Route: IVP; Site: right antecubital; iw 18:42 Follow up: Response: No adverse reaction em 18:14 Drug: NS 0.9% 1000 ml Route: IV; Rate: 1000 ml; Site: right antecubital; iw 19:10 Drug: Zofran 4 mg Route: IVP; Site: right antecubital; iw 19:34 Follow up: Response: No adverse reaction; Nausea is decreased cc3 Point of Care Testing: Blood Glucose: 18:00 Blood Glucose: 152 mg/dL; em Ranges: Critical Glucose Levels:Adult <50 mg/dl or >400 mg/dl <40 mg/dl or >180 mg/dl Disposition: 04/13/18 19:36 Discharged to Home. Impression: Migraine. - Condition is Stable. - Discharge Instructions: Migraine Headache. - Medication Reconciliation Form, Thank You Letter, Antibiotic Education, Prescription Opioid Use form. - Follow up: Sathya Whitley MD; When: 2 - 3 days; Reason: Recheck today's complaints, Continuance of care, Re-evaluation by your physician. - Problem is new. - Symptoms have improved. Addendum: 04/18/2018 11:32 Co-signature as Attending Physician, Jimbo Hidalgo MD I agree with the assessment and k dr plan of care. Signatures: Dispatcher [employer] EDJimbo Perry MD MD [facility] Justin Jiménez, WELDER METAL FAB WELDER METAL FAB em Rachna Quintero, RN RN Santi Tsai PA PA jr8 Felipe Irizarry, KAYLEY RN Nory García cc3 Corrections: (The following items were deleted from the chart) 04/13 17:50 16:45 Home Meds: Equetro 200 mg Oral CM12 2 caps daily; em 19:58 19:36 04/13/2018 19:36 Discharged to Home. Impression: Migraine. Condition is Stable. cc3 Forms are Medication Reconciliation Form, Thank You Letter, Antibiotic Education, Prescription Opioid Use. Follow up: Sathya Whitley; When: 2 - 3 days; Reason: Recheck today's complaints, Continuance of care, Re-evaluation by your physician. Problem is new. Symptoms have improved. jr8
[2018-04-13 20:15] VITALS: BP 124/82; TEMP 99.1; O2SAT 96
== END 2018-04-13 19:58 | disposition home or self-care (01) ==
LOC: ER 16:33
DX: G43.909 Migraine, unspecified, not intractable, without status migrainosus (principal); R11.2 Nausea with vomiting, unspecified; F32.9 Major depressive disorder, single episode, unspecified; F31.9 Bipolar disorder, unspecified; Z85.41 Personal history of malignant neoplasm of cervix uteri; Z88.5 Allergy status to narcotic agent
CPT/HCPCS: 36415; 80048; 81003; 82962; 85025; 96374; 96375; 99283; J2405; J2765; J7030

== ENCOUNTER 2018-10-30 20:48 | Emergency (ER) | payer OTHER ==
[2018-10-30] MEDS ORDERED: DIPHENHYDRAMINE 25 MG TAB/CAP ONE (21:09)
[2018-10-30] MEDS ORDERED: predniSONE 20 MG TAB ONE (21:10)
--- NOTE | 2018-10-30 21:14 | ER ---
Nurse's Notes [facility] Name: Ammy Howell Age: 38 yrs Sex: Female : 1980 Arrival Date: 10/30/2018 Time: 20:53 Bed 20 Private MD: Diagnosis: Itching Presentation: 10/30 20:59 Presenting complaint: Patient states: I was started on lamotrigine 3 weeks ago and they la1 told me to be really careful if I got a rash. About 30 minutes ago I started with a rash on my face. Transition of care: patient was not received from another setting of care. Onset of symptoms was October 30, 2018. Risk Assessment: Do you want to hurt yourself or someone else? Patient reports no desire to harm self or others. Initial Sepsis Screen: Does the patient meet any 2 criteria? No. Patient's initial sepsis screen is negative. Does the patient have a suspected source of infection? No. Patient's initial sepsis screen is negative. Care prior to arrival: None. 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 - Social history:: Smoking status: unknown. - Ebola Screening: : No symptoms or risks identified at this time. - Family history:: not pertinent. - Hospitalizations: : No recent hospitalization is reported. Screenin:01 Abuse screen: Denies threats or abuse. Nutritional screening: No deficits noted. jd3 Tuberculosis screening: No symptoms or risk factors identified. Fall Risk Ambulatory Aid- None/Bed Rest/Nurse Assist (0 pts). Gait- Normal/Bed Rest/Wheelchair (0 pts) Mental Status- Oriented to own ability (0 pts). Total Moreira Fall Scale indicates No Risk (0-24 pts). Assessment: 20:59 General: Appears in no apparent distress. uncomfortable, Behavior is calm, cooperative, jd3 appropriate for age. Pain: Complains of pain in face and scalp Quality of pain is described as itching. Neuro: Level of Consciousness is awake, alert, obeys commands, Oriented to person, place, time, situation. Cardiovascular: Capillary refill < 3 seconds Patient's skin is warm and dry. Respiratory: Airway is patent Respiratory effort is even, unlabored, Respiratory pattern is regular, symmetrical, Denies cough. GI: No signs and/or symptoms were reported involving the gastrointestinal system. : No signs and/or symptoms were reported regarding the genitourinary system. EENT: No signs and/or symptoms were reported regarding the EENT system. Derm: Skin is intact, Skin is dry, Skin is normal, Skin temperature is warm Rash noted that is itchy, on right cheek, left cheek and scalp. Musculoskeletal: Circulation, motion, and sensation intact. Range of motion: intact in all extremities. Vital Signs: 21:01 BP 135 / 80; Pulse 91; Resp 16; Temp 97.7(TE); Pulse Ox 100% on R/A; Weight 89.36 kg; la1 Height 5 ft. 4 in. (162.56 cm); 21: Body Mass Index 33.81 (89.36 kg, 162.56 cm) la1 ED Course: 20:53 Patient arrived in ED. cf2 20:57 Ben Beal, RN is Primary Nurse. jd3 21:00 Triage completed. la1 21:00 Gio Amos MD is Attending Physician. wa 21: Patient has correct armband on for positive identification. Bed in low position. Call jd3 light in reach. Side rails up X 1. Adult w/ patient. 21:25 Arm band placed on. jd3 21:25 No provider procedures requiring assistance completed. Patient did not have IV access jd3 during this emergency room visit. Administered Medications: 21:11 Drug: predniSONE 40 mg Route: PO; jd3 21:25 Follow up: Response: Medication administered at discharge. jd3 21:12 Drug: Benadryl 25 mg Route: PO; jd3 21:24 Follow up: Response: Medication administered at discharge. jd3 Outcome: 21:14 Discharge ordered by . wa 21:25 Discharged to home ambulatory, with family. jd3 21:25 Condition: stable 21:25 Discharge instructions given to patient, family, Instructed on discharge instructions, follow up and referral plans. medication usage, Demonstrated understanding of instructions, follow-up care, medications, Prescriptions given X 1. 21:26 Patient left the ED. jd3 Signatures: Scott Foster RN RN la1 Gio Amos MD MD wa Davies, Jonathon, RN RN jd3 Zaida Thomas 2
--- NOTE | 2018-10-30 21:15 | EDPHYS ---
Physician Documentation [facility] Name: Ammy Howell Age: 38 yrs Sex: Female : 1980 Arrival Date: 10/30/2018 Time: 20:53 Bed 20 Private MD: ED Physician Gio Amos HPI: 10/30 21:05 This 38 yrs old Female presents to ER via Ambulatory with complaints of Rash. wa 21:06 This 38 yrs old Female presents to ER via Ambulatory with complaints of Rash. wa 21:06 The patient presents with itching, face and scalp. Onset: The symptoms/episode wa began/occurred 30 minute(s) ago. Associated signs and symptoms: Pertinent positives: rash, Pertinent negatives: hives, shortness of breath, swelling, Syncope vomiting. Possible causes: lamotrigine. At home the patient or guardian has treated the symptoms with nothing. Severity of symptoms: At their worst the symptoms were moderate in the emergency department the symptoms are unchanged. The patient has not experienced similar symptoms in the past. The patient has not recently seen a physician. states take lomitrigine. noted itching of scalp and face this evening. called hotline and was told to come in. denies SOB or swelling. . 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 - Social history:: Smoking status: unknown. - Ebola Screening: : No symptoms or risks identified at this time. - Family history:: not pertinent. - Hospitalizations: : No recent hospitalization is reported. ROS: 21:09 Constitutional: Negative for fever, chills, and weight loss, Eyes: Negative for injury, wa pain, redness, and discharge, ENT: Negative for injury, pain, and discharge, Neck: Negative for injury, pain, and swelling, Cardiovascular: Negative for chest pain, palpitations, and edema, Respiratory: Negative for shortness of breath, cough, wheezing, and pleuritic chest pain, Abdomen/GI: Negative for abdominal pain, nausea, vomiting, diarrhea, and constipation, Back: Negative for injury and pain, : Negative for injury, bleeding, discharge, and swelling, MS/Extremity: Negative for injury and deformity, Neuro: Negative for headache, weakness, numbness, tingling, and seizure, Psych: Negative for depression, anxiety, suicide ideation, homicidal ideation, and hallucinations. 21:09 Skin: Positive for rash, of the face. 21:09 All other systems are negative. Exam: 21:09 Constitutional: This is a well developed, well nourished patient who is awake, alert, wa and in no acute distress. Head/Face: Normocephalic, atraumatic. Eyes: Pupils equal round and reactive to light, extra-ocular motions intact. Lids and lashes normal. Conjunctiva and sclera are non-icteric and not injected. Cornea within normal limits. Periorbital areas with no swelling, redness, or edema. ENT: Nares patent. No nasal discharge, no septal abnormalities noted. Tympanic membranes are normal and external auditory canals are clear. Oropharynx with no redness, swelling, or masses, exudates, or evidence of obstruction, uvula midline. Mucous membranes moist. Neck: Trachea midline, no thyromegaly or masses palpated, and no cervical lymphadenopathy. Supple, full range of motion without nuchal rigidity, or vertebral point tenderness. No Meningismus. Chest/axilla: Normal chest wall appearance and motion. Nontender with no deformity. No lesions are appreciated. Cardiovascular: Regular rate and rhythm with a normal S1 and S2. No gallops, murmurs, or rubs. Normal PMI, no JVD. No pulse deficits. Respiratory: Lungs have equal breath sounds bilaterally, clear to auscultation and percussion. No rales, rhonchi or wheezes noted. No increased work of breathing, no retractions or nasal flaring. Abdomen/GI: Soft, non-tender, with normal bowel sounds. No distension or tympany. No guarding or rebound. No evidence of tenderness throughout. Back: No spinal tenderness. No costovertebral tenderness. Full range of motion. MS/ Extremity: Pulses equal, no cyanosis. Neurovascular intact. Full, normal range of motion. Neuro: Awake and alert, GCS 15, oriented to person, place, time, and situation. Cranial nerves II-XII grossly intact. Motor strength 5/5 in all extremities. Sensory grossly intact. Cerebellar exam normal. Normal gait. Psych: Awake, alert, with orientation to person, place and time. Behavior, mood, and affect are within normal limits. 21:09 Skin: Appearance: Color: normal in color, Temperature: normal temperature, Moisture: normal moisture, swelling, is not appreciated, no distinctive rash noted on exam. nml mucous membranes. noted scratching scalp and face intermittently however. . Vital Signs: 21:01 BP 135 / 80; Pulse 91; Resp 16; Temp 97.7(TE); Pulse Ox 100% on R/A; Weight 89.36 kg; la1 Height 5 ft. 4 in. (162.56 cm); 21:01 Body Mass Index 33.81 (89.36 kg, 162.56 cm) la1 MDM: 21:00 Patient medically screened. al 21:11 Differential diagnosis: itching face and scalp. no appreciable rash. no mucous membrane wa pathology. will treat with prednisone and benadryl. advised to hold lamotrigine until discussed with her doctor. Data reviewed: vital signs, nurses notes. Administered Medications: 21:11 Drug: predniSONE 40 mg Route: PO; jd3 21:25 Follow up: Response: Medication administered at discharge. jd3 21:12 Drug: Benadryl 25 mg Route: PO; jd3 21:24 Follow up: Response: Medication administered at discharge. jd3 Disposition: 10/30/18 21:14 Discharged to Home. Impression: Itching. - Condition is Stable. - Discharge Instructions: Rash, [id number]. - Prescriptions for cetirizine 10 mg Oral tablet - take 1 tablet by ORAL route once daily; 20 tablet. - Medication Reconciliation Form, Thank You Letter, Antibiotic Education, Prescription Opioid Use form. - Follow up: Private Physician; When: 1 - 2 days; Reason: Recheck today's complaints. - Problem is new. - Symptoms have improved. - Notes: hold lamotrigine until you have spoken to your doctor about the itching and rash. take medication for itchin as prescribed as discussed. return immediately for worsening concerns Signatures: Scott Foster, RN RN la1 Gio Amos MD MD wa Davies, Jonathon, RN RN jd3 Corrections: (The following items were deleted from the chart) 21:26 21:14 10/30/2018 21:14 Discharged to Home. Impression: Itching. Condition is Stable. jd3 Forms are Medication Reconciliation Form, Thank You Letter, Antibiotic Education, Prescription Opioid Use. Follow up: Private Physician; When: 1 - 2 days; Reason: Recheck today's complaints. Problem is new. Symptoms have improved. wa
[2018-10-30 22:04] VITALS: BP 135/80; TEMP 97.7; O2SAT 100
== END 2018-10-30 21:26 | disposition home or self-care (01) ==
LOC: ER 20:48
DX: L29.9 Pruritus, unspecified (principal); Z88.6 Allergy status to analgesic agent
CPT/HCPCS: 99283; J7512

== ENCOUNTER 2019-08-21 18:39 | Emergency (ER) | payer OTHER ==
--- NOTE | 2019-08-21 23:24 | ER ---
Nurse's Notes [facility] Name: Ammy Howell Age: 38 yrs Sex: Female : 1980 Arrival Date: 08/21/2019 Time: 19:08 Bed 27 Private MD: Diagnosis: Acute upper respiratory infection, unspecified;Bronchitis, not specified as acute or chronic Presentation: 08/20 19:08 Chief complaint: Patient states: headache, congestion, cough and nausea that began ss yesterday. Coronavirus screen: Patient reports a cough. Patient denies shortness of breath or difficulty breathing. Patient denies measured and/or subjective temperature greater than 100.4F prior to today's visit. Patient denies travel on a cruise ship or to a country the [facility] currently lists as an affected area. Patient denies contact with known and/or suspected case of COVID-19. Ebola Screen: Patient denies exposure to infectious person. Patient denies travel to an Ebola-affected area in the 21 days before illness onset. Initial Sepsis Screen: Does the patient meet any 2 criteria? No. Patient's initial sepsis screen is negative. Does the patient have a suspected source of infection? No. Patient's initial sepsis screen is negative. Risk Assessment: Do you want to hurt yourself or someone else? Patient reports no desire to harm self or others. Onset of symptoms was August 20, 2019. 19:08 Method Of Arrival: Ambulatory 19:08 Acuity: LAISHA 3 ss Historical: - Allergies: 19:09 Demerol; ss - PMHx: 19:09 Bipolar disorder; cervical cancer; Depression; Diverticulitis; ss - Immunization history:: Adult Immunizations up to date. - Social history:: Smoking status: Patient denies any tobacco usage or history of. - Family history:: not pertinent. Vital Signs: 19:09 BP 131 / 92; Pulse 93; Resp 16; Temp 97.9(TE); Pulse Ox 95% on R/A; Weight 110.22 kg; ss Height 5 ft. 4 in. (162.56 cm); Pain 4/10; 19:09 Body Mass Index 41.71 (110.22 kg, 162.56 cm) ED Course: 19:08 Patient arrived in ED. 19:09 Triage completed. ss 19:09 Arm band placed on right wrist. ss 22:49 Gael Reyes MD is Attending Physician. [facility] 22:54 Max Delaney, RN is Primary Nurse. 08/21 08:38 Health Dept notified/ PUI # [id number]/ sravan in lab notified. eb Administered Medications: 08/20 23:40 Drug: Zithromax 500 mg Route: PO; 23:40 Drug: predniSONE 40 mg Route: PO; Outcome: 23:03 Discharge ordered by . [facility] 23:48 Patient left the ED. Signatures: Max Delaney, RN RN Gael Reyes MD MD cha Smirch, Shelby, RN RN Pati Jones
--- NOTE | 2019-08-21 23:24 | EDPHYS ---
Physician Documentation [facility] Name: Ammy Howell Age: 38 yrs Sex: Female : 1980 Arrival Date: 08/21/2019 Time: 19:08 Bed 27 Private MD: MENDY Physician Gael Reyes HPI: 08/20 22:54 This 38 yrs old Female presents to ER via Ambulatory with complaints of sarika Headache, Sinus Congestion, Cough. 22:54 The patient complains of pain to the nose. The patient complains of pain to the right sarika eye, nose and left eye. 22:54 The patient describes the headache as constant. Onset: The symptoms/episode sarika began/occurred 3 day(s) ago. The patient or guardian reports cough, described as mild, flu symptoms, arthralgias, low-grade fever, myalgias. Onset: The symptoms/episode began/occurred 3 day(s) ago. Modifying factors: The symptoms are alleviated by remaining still, the symptoms are aggravated by activity. Associated signs and symptoms: The patient has no apparent associated signs or symptoms. Severity of symptoms: At its worst the pain was mild, in the emergency department the pain is unchanged. Headache History: Denies prior headaches. The patient or guardian reports airway noise. Historical: - Allergies: 19:09 Demerol; ss - PMHx: 19:09 Bipolar disorder; cervical cancer; Depression; Diverticulitis; ss - Immunization history:: Adult Immunizations up to date. - Social history:: Smoking status: Patient denies any tobacco usage or history of. - Family history:: not pertinent. ROS: 22:54 Constitutional: Negative for fever, chills, and weight loss, Eyes: Negative for injury, sarika pain, redness, and discharge, Neck: Negative for injury, pain, and swelling, Cardiovascular: Negative for chest pain, palpitations, and edema, Abdomen/GI: Negative for abdominal pain, nausea, vomiting, diarrhea, and constipation, Back: Negative for injury and pain, : Negative for injury, bleeding, discharge, and swelling, MS/Extremity: Negative for injury and deformity, Skin: Negative for injury, rash, and discoloration, Neuro: Negative for headache, weakness, numbness, tingling, and seizure. 22:54 ENT: Positive for nasal discharge, rhinorrhea, sinus congestion. 22:54 MS/extremity: Negative for acute changes, decreased range of motion, swelling, tenderness. Exam: 22:54 Constitutional: This is a well developed, well nourished patient who is awake, alert, sarika and in no acute distress. Head/Face: Normocephalic, atraumatic. Eyes: Pupils equal round and reactive to light, extra-ocular motions intact. Lids and lashes normal. Conjunctiva and sclera are non-icteric and not injected. Cornea within normal limits. Periorbital areas with no swelling, redness, or edema. ENT: Nares patent. No nasal discharge, no septal abnormalities noted. Tympanic membranes are normal and external auditory canals are clear. Oropharynx with no redness, swelling, or masses, exudates, or evidence of obstruction, uvula midline. Mucous membranes moist. Neck: Trachea midline, no thyromegaly or masses palpated, and no cervical lymphadenopathy. Supple, full range of motion without nuchal rigidity, or vertebral point tenderness. No Meningismus. Chest/axilla: Normal chest wall appearance and motion. Nontender with no deformity. No lesions are appreciated. Cardiovascular: Regular rate and rhythm with a normal S1 and S2. No gallops, murmurs, or rubs. Normal PMI, no JVD. No pulse deficits. Respiratory: Lungs have equal breath sounds bilaterally, clear to auscultation and percussion. No rales, rhonchi or wheezes noted. No increased work of breathing, no retractions or nasal flaring. Abdomen/GI: Soft, non-tender, with normal bowel sounds. No distension or tympany. No guarding or rebound. No evidence of tenderness throughout. Back: No spinal tenderness. No costovertebral tenderness. Full range of motion. Skin: Warm, dry with normal turgor. Normal color with no rashes, no lesions, and no evidence of cellulitis. MS/ Extremity: Pulses equal, no cyanosis. Neurovascular intact. Full, normal range of motion. Neuro: Awake and alert, GCS 15, oriented to person, place, time, and situation. Cranial nerves II-XII grossly intact. Motor strength 5/5 in all extremities. Sensory grossly intact. Cerebellar exam normal. Normal gait. Psych: Awake, alert, with orientation to person, place and time. Behavior, mood, and affect are within normal limits. 22:54 Musculoskeletal/extremity: ROM: full active range of motion, full passive range of motion, Circulation is intact in all extremities. Sensation intact. Compartment Syndrome exam of affected extremity: is normal. DVT Exam: No signs of deep vein thrombosis. no pain, no swelling, no tenderness, negative Homans' sign noted on exam, no appreciated bluish discoloration, no erythema, no increased warmth. Vital Signs: 19:09 BP 131 / 92; Pulse 93; Resp 16; Temp 97.9(TE); Pulse Ox 95% on R/A; Weight 110.22 kg; ss Height 5 ft. 4 in. (162.56 cm); Pain 4/10; 19:09 Body Mass Index 41.71 (110.22 kg, 162.56 cm) ss MDM: 22:49 Patient medically screened. [facility] 23:00 Antibiotic administration: The patient is discharged and will get outpatient [facility] antibiotics, Zithromax. Differential diagnosis: bronchitis, flu, URI, sinusitis. Differential Diagnosis: Bronchitis Influenza Upper Respiratory Infection Sinusitis Pharyngitis Allergic Rhinitis Viral Syndrome Pneumonia. Data reviewed: vital signs, nurses notes, lab test result(s). 08/20 22:53 Order name: COVID-19 [facility] 08/20 22:53 Order name: Influenza Screen (a \T\ B) [facility] Administered Medications: 23:40 Drug: Zithromax 500 mg Route: PO; 23:40 Drug: predniSONE 40 mg Route: PO; sg Disposition: 08/21/19 23:03 Discharged to Home. Impression: Acute upper respiratory infection, unspecified, Bronchitis, not specified as acute or chronic. - Condition is Stable. - Discharge Instructions: Acute Bronchitis, Adult, Upper Respiratory Infection, Adult, Cool Mist Vaporizer, Upper Respiratory Infection, Adult, Fhhl-jo-Irun, Cough, Adult, Llgc-da-Nuqo, Cough, Adult, COVID-19. - Prescriptions for Zithromax Z- Paulo 250 mg Oral Tablet - take 1 tablet by ORAL route as directed for 5 days Day 1 - take two (2) tablets one time. Day 2, 3, 4 , 5 take one (1) tablet once daily.; 6 tablet. Medrol (Paulo) 4 mg Oral Tablets, Dose Pack - take 1 tablet by ORAL route as directed - follow package instructions; 1 packet. Albuterol Sulfate 90 mcg/actuation - inhale 1-2 puff by INHALATION route every 4-6 hours; 1 Inhaler. - Work release form, Medication Reconciliation Form, Thank You Letter, Antibiotic Education, Prescription Opioid Use form. - Follow up: Private Physician; When: 2 - 3 days; Reason: Recheck today's complaints, Continuance of care, Re-evaluation by your physician. - Problem is new. - Symptoms have improved. Addendum: 08/24/2019 07:22 Addendum: Pt contacted at 0722 to notify of positive COVID-19 test results, feeling r n better, questions answered, told health department will be contacting for further instructions and documentation. . Signatures: Dispatcher [employer] EDMS Max Delaney RN RN Gael Reis MD MD cha Nieto, Roman, MD MD rn Smirch, Shelby, RN RN ss Corrections: (The following items were deleted from the chart) 08/20 23:48 23:03 08/21/2019 23:03 Discharged to Home. Impression: Acute upper respiratory sg infection, unspecified; Bronchitis, not specified as acute or chronic. Condition is Stable. Forms are Medication Reconciliation Form, Thank You Letter, Antibiotic Education, Prescription Opioid Use. Follow up: Private Physician; When: 2 - 3 days; Reason: Recheck today's complaints, Continuance of care, Re-evaluation by your physician. Problem is new. Symptoms have improved. sarika
[2019-08-21] MEDS ORDERED: predniSONE 20 MG TAB ONE (23:37)
[2019-08-21] MEDS ORDERED: AZITHROMYCIN 250 MG TAB ONE (23:37)
[2019-08-22 01:51] VITALS: BP 131/92; TEMP 97.9; O2SAT 95
== END 2019-08-21 23:48 | disposition home or self-care (01) ==
LOC: ER 18:39
DX: U07.1 COVID-19 (principal); J40 Bronchitis, not specified as acute or chronic; Z88.5 Allergy status to narcotic agent
CPT/HCPCS: 99282; U0001; J7512

== ENCOUNTER 2020-08-12 23:19 | Emergency (ER) | payer OTHER ==
[2020-08-13 01:53] LABS: Urine Blood Negative (Negative); Urine Glucose 3+ (Negative); Urine Protein Negative (Negative); Urine Specific Gravity 1.025 (1.005-1.030)
[2020-08-13] MEDS ORDERED: MORPHINE 4 MG/ML SYR ONE (01:54)
[2020-08-13] MEDS ORDERED: NA CHLORIDE 0.9% 1,000 ML ONE (01:54)
[2020-08-13] MEDS ORDERED: ONDANSETRON 4 MG/2 ML VIAL ONE ×2 (01:54→03:34)
[2020-08-13] MEDS ORDERED: FAMOTIDINE 20 MG/2 ML VIAL IV ONE (01:54)
[2020-08-13 02:01] LABS: Absolute Lymphocytes (CBC) 2.1 K/uL (0.7-4.9); Basophils % 0.8 % (0-1.3); Hematocrit 34.8 % (36.0-45.0); MPV 6.8 fL (7.6-11.3); RBC Red Blood Cell Count 5.01 M/uL (3.86-4.86)
[2020-08-13 02:25] LABS: ALT/SGPT 41 U/L (12-78); AST/SGOT 25 U/L (15-37); Alkaline Phosphatase 121 U/L (45-117); BUN Blood Urea Nitrogen 12 mg/dL (7-18); Bicarbonate 26 mmol/L (21-32); Bilirubin Direct 0.1 mg/dL (0-0.2); Bilirubin Total 0.4 mg/dL (0.2-1.0); Glucose Level 108 mg/dL (74-106); Protein, Total 8.5 g/dL (6.4-8.2); Sodium Level 137 mmol/L (136-145)
[2020-08-13 02:26] LABS: Lipase 113 U/L (73-393)
[2020-08-13] MEDS ORDERED: PROMETHAZINE INJ 25 MG/ML AMP ONE (03:54)
[2020-08-13] MEDS ORDERED: NA CHLORIDE 0.9% 50 ML ONE (03:54)
--- NOTE | 2020-08-13 03:58 | ER ---
Nurse's Notes [facility] Name: Ammy Howell Age: 39 yrs Sex: Female : 1980 Arrival Date: 08/12/2020 Time: 23:23 Bed 14 Private MD: Diagnosis: Abdominal pain, unspecified Presentation: 08/12 23:24 Chief complaint: Patient states: abdomen pain, nausea, vomiting, period type cramps, bs2 started yesterday. Coronavirus screen: Client denies travel out of the [place] in the last 14 days. nausea, vomiting. Ebola Screen: Patient negative for fever greater than or equal to 101.5 degrees Fahrenheit, and additional compatible Ebola Virus Disease symptoms Patient denies exposure to infectious person. Patient denies travel to an Ebola-affected area in the 21 days before illness onset. No symptoms or risks identified at this time. Initial Sepsis Screen: Does the patient meet any 2 criteria? No. Patient's initial sepsis screen is negative. Does the patient have a suspected source of infection? No. Patient's initial sepsis screen is negative. Risk Assessment: Do you want to hurt yourself or someone else? Patient reports no desire to harm self or others. Onset of symptoms was August 11, 2020. 23:24 Method Of Arrival: Ambulatory bs2 23:24 Acuity: LAISHA 3 bs2 Triage Assessment: 23:30 General: Appears uncomfortable, obese, well groomed, well developed, well nourished, bs2 Behavior is calm, cooperative, appropriate for age. Pain: Complains of pain in pelvis. GI: Reports cramping, nausea, vomiting. Historical: - Allergies: 23:27 Demerol; bs2 - Home Meds: 23:27 Insulin Glargine Sub-Q [Active]; metformin 1,000 mg Oral tab 1 tab 2 times per day bs2 [Active]; Lisinopril Oral [Active]; Farxiga oral [Active]; - PMHx: 23:27 Bipolar disorder; cervical cancer; Depression; Diverticulitis; bs2 - PSHx: 23:27 Ligation of fallopian tube; hernia; bs2 23:30 Colon; Cholecystectomy; bs2 - Immunization history:: Client reports having NOT received the Covid vaccine. Flu vaccine is not up to date. - Social history:: Smoking status: Patient denies any tobacco usage or history of. - Family history:: not pertinent. Screenin/01 02:04 Abuse screen: Denies threats or abuse. Denies injuries from another. Nutritional ad5 screening: No deficits noted. Tuberculosis screening: No symptoms or risk factors identified. Fall Risk None identified. Assessment: :30 General: Appears uncomfortable, Behavior is calm, cooperative, appropriate for age. ad5 Pain: Complains of pain in lower abd. Neuro: No deficits noted. Level of Consciousness is awake, alert, obeys commands, Oriented to person, place, time, situation, Appropriate for age. Cardiovascular: No deficits noted. Heart tones present Capillary refill < 3 seconds Patient's skin is warm and dry. Cardiovascular: Pulses are all present. Respiratory: No deficits noted. Airway is patent Respiratory effort is even, unlabored, Respiratory pattern is regular, symmetrical. GI: Abdomen is flat, Bowel sounds present X 4 quads. Abd is soft and non tender X 4 quads. : No deficits noted. No signs and/or symptoms were reported regarding the genitourinary system. Derm: Skin is pink, warm \T\ dry. 02:35 Reassessment: Patient appears in no apparent distress at this time. Patient and/or ad5 family updated on plan of care and expected duration. Pain level reassessed. Patient is alert, oriented x 3, equal unlabored respirations, skin warm/dry/pink. Patient states symptoms have improved. 03:18 Reassessment: Pt with active n/v, aware, VORB for zofran 4mg IVP x 1. Pt up to ad5 restroom, ambulatory with steady gait. Repositioned back into stretcher for comfort. Will continue to monitor. 04:04 Reassessment: Patient appears in no apparent distress at this time. Patient is alert, ad5 oriented x 3, equal unlabored respirations, skin warm/dry/pink. Patient states symptoms have improved. Vital Signs: 08/12 23:24 BP 137 / 66; Pulse 95; Resp 15; Temp 98.6(T); Pulse Ox 99% ; Weight 102.97 kg (R); bs2 Height 5 ft. 4 in. (162.56 cm) (R); Pain 9/10; 08/13 02:04 BP 102 / 61; Pulse 85; Resp 18 S; Pulse Ox 97% on R/A; ad5 03:21 BP 109 / 62; Pulse 93; Resp 20 S; Pulse Ox 98% on R/A; ad5 04:04 BP 101 / 54; Pulse 90; Resp 16 S; Pulse Ox 95% on R/A; ad5 08/12 23:24 Body Mass Index 38.96 (102.97 kg, 162.56 cm) bs2 ED Course: 08/12 23:23 Patient arrived in ED. bp1 23:27 Triage completed. bs2 23:30 Arm band placed on left wrist. bs2 08/13 01:06 Kady Lau MD is Attending Physician. ma2 01:28 Charlie Donaldson is Primary Nurse. ad5 01:30 Initial lab(s) drawn, by me, sent to lab. Inserted saline lock: 22 gauge in left ad5 forearm, using aseptic technique. Blood collected. 02:01 No provider procedures requiring assistance completed. ad5 02:04 Patient has correct armband on for positive identification. Placed in gown. Bed in low ad5 position. Call light in reach. Side rails up X 1. Pulse ox on. NIBP on. Door closed. Noise minimized. Warm blanket given. Head of bed elevated. 03:15 CT Abd/Pelvis - IV Contrast Only In Process Unspecified. EDMS 04:05 IV discontinued, intact, bleeding controlled, No redness/swelling at site. Pressure ad5 dressing applied. Administered Medications: 01:30 Drug: NS 0.9% 1000 ml Route: IV; Rate: 1 bolus; Site: left forearm; ad5 04:08 Follow up: IV Status: Completed infusion; IV Intake: 1000ml ad5 01:34 Drug: morphine 4 mg {Note: RASS 0.} Route: IVP; Site: left forearm; ad5 02:35 Follow up: Response: No adverse reaction; RASS: Alert and Calm (0) ad5 01:35 Drug: Zofran (Ondansetron) 4 mg Route: IVP; Site: left forearm; ad5 02:35 Follow up: Response: No adverse reaction ad5 01:35 Drug: Pepcid (famotidine) 20 mg Route: IVP; Site: left forearm; ad5 02:35 Follow up: Response: No adverse reaction ad5 03:19 Drug: Zofran (Ondansetron) 4 mg Route: IVP; Site: left forearm; ad5 04:08 Follow up: Response: No adverse reaction; Nausea is decreased; Vomiting decreased ad5 03:40 Drug: Phenergan (promethazine) 25 mg Route: IVP; Site: left forearm; ad5 04:07 Follow up: Response: No adverse reaction; Nausea is decreased; Vomiting decreased ad5 Intake: 04:08 IV: 1000ml; Total: 1000ml. ad5 Outcome: 03:57 Discharge ordered by . guicho 04:04 Discharged to home ambulatory, with friend. ad5 04:04 Condition: stable 04:04 Discharge instructions given to patient, Instructed on discharge instructions, follow up and referral plans. medication usage, Demonstrated understanding of instructions, follow-up care, medications, Prescriptions given X 3. 04:07 Patient left the ED. ad5 Signatures: Dispatcher [employer] EDMS Kady Lau MD MD ma2 Berenice Peralta Andrea ad5 Shweta Fisher bs2 Corrections: (The following items were deleted from the chart) 08/12 23:31 23:27 PSHx: Repair of inguinal hernia; bs2 bs2 23:31 23:30 PSHx: [place]; bs2 bs2
--- NOTE | 2020-08-13 03:58 | EDPHYS ---
Physician Documentation [facility] Name: Ammy Howell Age: 39 yrs Sex: Female : 1980 Arrival Date: 08/12/2020 Time: 23:23 Bed 14 Private MD: ED Physician Kady Lau HPI: 08/13 01:36 This 39 yrs old Female presents to ER via Ambulatory with complaints of ma2 Nausea/Vomiting, Abdominal Pain. 01:36 The patient presents to the emergency department with nausea, vomiting, diarrhea, ma2 abdominal pain. Onset: The symptoms/episode began/occurred gradually, 3 day(s) ago. Associated signs and symptoms: Pertinent negatives: constipation, dysuria, flatulence, GI bleeding. Severity of symptoms: At their worst the symptoms were mild in the emergency department the symptoms are unchanged. The patient has experienced similar episodes in the past. Historical: - Allergies: 08/12 23:27 Demerol; bs2 - Home Meds: 23:27 Insulin Glargine Sub-Q [Active]; metformin 1,000 mg Oral tab 1 tab 2 times per day bs2 [Active]; Lisinopril Oral [Active]; Farxiga oral [Active]; - PMHx: 23:27 Bipolar disorder; cervical cancer; Depression; Diverticulitis; bs2 - PSHx: 23:27 Ligation of fallopian tube; hernia; bs2 23:30 Colon; Cholecystectomy; bs2 - Immunization history:: Client reports having NOT received the Covid vaccine. Flu vaccine is not up to date. - Social history:: Smoking status: Patient denies any tobacco usage or history of. - Family history:: not pertinent. ROS: 08/13 01:36 Constitutional: Negative for fever, chills, and weight loss. ma2 All other systems are negative. Exam: 01:36 Constitutional: This is a well developed, well nourished patient who is awake, alert, ma2 and in no acute distress. Neck: Trachea midline, no thyromegaly or masses palpated, and no cervical lymphadenopathy. Supple, full range of motion without nuchal rigidity, or vertebral point tenderness. No Meningismus. Chest/axilla: Normal chest wall appearance and motion. Nontender with no deformity. No lesions are appreciated. Cardiovascular: Regular rate and rhythm with a normal S1 and S2. No gallops, murmurs, or rubs. Normal PMI, no JVD. No pulse deficits. Respiratory: Lungs have equal breath sounds bilaterally, clear to auscultation and percussion. No rales, rhonchi or wheezes noted. No increased work of breathing, no retractions or nasal flaring. Abdomen/GI: Soft, non-tender, with normal bowel sounds. No distension or tympany. No guarding or rebound. No evidence of tenderness throughout. MS/ Extremity: Pulses equal, no cyanosis. Neurovascular intact. Full, normal range of motion. Neuro: Awake and alert, GCS 15, oriented to person, place, time, and situation. Cranial nerves II-XII grossly intact. Motor strength 5/5 in all extremities. Sensory grossly intact. Cerebellar exam normal. Normal gait. Vital Signs: 08/12 23:24 BP 137 / 66; Pulse 95; Resp 15; Temp 98.6(T); Pulse Ox 99% ; Weight 102.97 kg (R); bs2 Height 5 ft. 4 in. (162.56 cm) (R); Pain 9/10; 08/13 02:04 BP 102 / 61; Pulse 85; Resp 18 S; Pulse Ox 97% on R/A; ad5 03:21 BP 109 / 62; Pulse 93; Resp 20 S; Pulse Ox 98% on R/A; ad5 04:04 BP 101 / 54; Pulse 90; Resp 16 S; Pulse Ox 95% on R/A; ad5 08/12 23:24 Body Mass Index 38.96 (102.97 kg, 162.56 cm) bs2 MDM: 01:06 Patient medically screened. [facility] 01:36 Differential diagnosis: cholecystitis, pancreatitis, appendicitis, diverticulitis. ga2 03:57 Data reviewed: vital signs, nurses notes. Counseling: I had a detailed discussion with ma2 the patient and/or guardian regarding: the historical points, exam findings, and any diagnostic results supporting the discharge/admit diagnosis, the presence of at least one elevated blood pressure reading (>120/80) during this emergency department visit, the need for outpatient follow up. Response to treatment: the patient's symptoms have markedly improved after treatment. 08/13 00:42 Order name: Basic Metabolic Panel; Complete Time: 02:32 [facility] 08/13 00:42 Order name: CBC with Diff ma2 08/13 00:42 Order name: Hepatic Function; Complete Time: 02:32 ma2 08/13 00:42 Order name: Lipase; Complete Time: 02:32 ma2 08/13 01:52 Order name: Urine Dipstick-Ancillary; Complete Time: 02:32 EDMS 08/13 02:11 Order name: CBC Smear Scan EDMS 08/13 00:42 Order name: IV Saline Lock; Complete Time: 01:53 ma2 08/13 01:22 Order name: CT Abd/Pelvis - IV Contrast Only ma2 08/13 00:42 Order name: Labs collected and sent; Complete Time: 01:53 ma2 08/13 00:42 Order name: Urine Dipstick-Ancillary (obtain specimen); Complete Time: 01:53 ma2 Administered Medications: 01:30 Drug: NS 0.9% 1000 ml Route: IV; Rate: 1 bolus; Site: left forearm; ad5 04:08 Follow up: IV Status: Completed infusion; IV Intake: 1000ml ad5 01:34 Drug: morphine 4 mg {Note: RASS 0.} Route: IVP; Site: left forearm; ad5 02:35 Follow up: Response: No adverse reaction; RASS: Alert and Calm (0) ad5 01:35 Drug: Zofran (Ondansetron) 4 mg Route: IVP; Site: left forearm; ad5 02:35 Follow up: Response: No adverse reaction ad5 01:35 Drug: Pepcid (famotidine) 20 mg Route: IVP; Site: left forearm; ad5 02:35 Follow up: Response: No adverse reaction ad5 03:19 Drug: Zofran (Ondansetron) 4 mg Route: IVP; Site: left forearm; ad5 04:08 Follow up: Response: No adverse reaction; Nausea is decreased; Vomiting decreased ad5 03:40 Drug: Phenergan (promethazine) 25 mg Route: IVP; Site: left forearm; ad5 04:07 Follow up: Response: No adverse reaction; Nausea is decreased; Vomiting decreased ad5 Disposition Summary: 08/13/20 03:57 Discharge Ordered Location: Home ma2 Condition: Stable ma2 Diagnosis - Abdominal pain, unspecified ma2 Followup: ma2 - With: Private Physician - When: Tomorrow - Reason: Continuance of care Discharge Instructions: - Discharge Summary Sheet ma2 - Abdominal Pain, Adult ma2 Forms: - Medication Reconciliation Form ma2 - Thank You Letter ma2 - Antibiotic Education ma2 - Prescription Opioid Use ma2 Prescriptions: - Zofran 4 mg Oral Tablet - take 1 tablet by ORAL route every 12 hours As needed; 20 tablet; Refills: 0, ma2 Product Selection Permitted - Diclofenac Sodium 75 mg Oral Tablet Sustained Release - take 1 tablet by ORAL route 2 times per day; 30 tablet; Refills: 0, Product ma2 Selection Permitted - Pepcid 20 mg Oral Tablet - take 1 tablet by ORAL route once daily; 20 tablet; Refills: 0, Product ma2 Selection Permitted Signatures: Dispatcher [employer] EDMS Kady Lau MD MD ma2 Charlie Donaldson Bridget bs2 Corrections: (The following items were deleted from the chart) 08/12 23:31 23:27 PSHx: Repair of inguinal hernia; bs2 bs2 23: 23:30 PSHx: [place]; bs2 bs2
[2020-08-13 04:12] VITALS: TEMP 98.6
[2020-08-13 04:17] VITALS: BP 101/54; O2SAT 95
[2020-08-13 04:55] LABS: Blood Morphology Comment NOTED (NOT SEEN); Platelet Estimate ADEQ; Polychromasia 2+; White Blood Cell Scan OK (OK)
--- NOTE | 2020-08-13 11:05 | RAD REPORT ---
EXAM DESCRIPTION: CT Abdomen and Pelvis With Intravenous Contrast CLINICAL HISTORY: The patient is 39 years old and is Female; ABD PAIN TECHNIQUE: Axial computed tomography images of the abdomen and pelvis with intravenous contrast. S agittal and coronal reformatted images were created and reviewed. This CT exam was performed using one or more of the following dose reduction techniques: automated exposure control, adjustment of t he mA and/or kV according to patient size, and/or use of iterative reconstruction technique. COMPARISON: No relevant prior studies available. FINDINGS: Lung bases: Unremarkable. No mass. No consolidation. ABDOMEN: Liver: Unremarkable. No mass. Gallbladder and bile ducts: Gallbladder is surgically absent. No ductal dilation. Pancreas: Unremarkable. No mass. No ductal dilation. Spleen: Unremarkable. No splenomegaly. Adrenals: Unremarkable. No mass. Kidneys and ureters: Unremarkable. No solid mass. No hydronephrosis. Stomach and bowel: Short segment of mildly prominent small bowel in the mid abdomen. No obstruction. No mucosal thickening. PELVIS: Appendix: No findings to suggest acute appendicitis. Bladder: Unremarkable. No mass. Reproductive: Unremarkable as visualized. ABDOMEN and PELVIS: Intraperitoneal space: Unremarkable. No free air. No significant fluid collection. Bones/joints: No acute fracture. No dislocation. Soft tissues: Unremarkable. Vasculature: Unremarkable. No abdominal aortic aneurysm. Lymph nodes: Unremarkable. No enlarged lymph nodes. IMPRESSION: No acute findings in the abdomen or pelvis. Electronically signed by: Jonathan Ji MD 08/13/2020 3:32 AM CDT Due to temporary technical issues with the PACS/Fluency reporting system, reports are being signed by the in house radiologist without review as a courtesy to ensure prompt reporting. The interpreting r adiologist is fully responsible for the content of the report.
== END 2020-08-13 04:07 | disposition home or self-care (01) ==
LOC: ER 23:19
DX: R10.9 Unspecified abdominal pain (principal); Z88.5 Allergy status to narcotic agent
CPT/HCPCS: 96361; 85025; 80048; 36415; 80076; 81003; 83690; 74177; 96375; 96374; 99284; Q9967; J2550; J7030; J2405 ×2

== ENCOUNTER 2021-01-22 01:46 | Emergency (ER) | payer OTHER ==
--- NOTE | 2021-01-22 02:45 | EDPHYS ---
Physician Documentation [facility] Name: Ammy Howell Age: 40 yrs Sex: Female : 1980 Arrival Date: 01/22/2021 Time: 01:50 Bed Waiting Private MD: ED Physician Jeffery Pang HPI: 01/22 02:31 This 40 yrs old Female presents to ER via Ambulatory with complaints of Neck rn and Upper Back Pain. 02:31 The patient or guardian complains of pain, that is acute. The symptoms are located rn diffusely. Onset: The symptoms/episode began/occurred yesterday. Context: The problem was sustained at home, The neck injury/problem resulted from sleeping funny. Associated signs and symptoms: Pertinent negatives: chills, fever, headache, bladder incontinence, bowel incontinence, nausea, numbness, tingling, vomiting, weakness. The pain does not radiate. Modifying factors: The symptoms are alleviated by heat, massage, remaining still, the symptoms are aggravated by movement. Severity of symptoms: At their worst the symptoms were moderate, in the emergency department the symptoms are unchanged. The patient has not experienced similar symptoms in the past. The patient has not recently seen a physician. Patient reports neck pain, bilateral and posterior, hurts to look to the left and right but not really looking up and down. Denies any fever or feeling ill. No sore throat. No dysphagia. No cough and no shortness of breath. Reports woke up yesterday feeling like she slept wrong with her neck hurting and as the day progressed became worse. Better with [place], heat, massage.. 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 - Social history:: Smoking status: Patient/guardian denies using tobacco, the patient reports quitting approximately 3 years ago. - Family history:: not pertinent. - Hospitalizations: : No recent hospitalization is reported. ROS: 02:31 Constitutional: Negative for fever, chills, and weight loss, Eyes: Negative for injury, rn pain, redness, and discharge, Neck: Positive for neck pain Cardiovascular: Negative for chest pain, palpitations, and edema, Respiratory: Negative for shortness of breath, cough, wheezing, and pleuritic chest pain, Abdomen/GI: Negative for abdominal pain, nausea, vomiting, diarrhea, and constipation, Back: Negative for injury and pain, MS/Extremity: Negative for injury and deformity, Skin: Negative for injury, rash, and discoloration, Neuro: Negative for headache, weakness, numbness, tingling, and seizure. 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 Eyes: Periorbital areas with no swelling, redness, or edema. Neck: Trachea midline, no masses palpated, and no cervical lymphadenopathy. No Meningismus or pain with extension of neck. Pain with rotation primarily to left. Skin: Warm, dry with normal turgor. Normal color with no rashes, no lesions, and no evidence of cellulitis. MS/ Extremity: Pulses equal, no cyanosis. Neurovascular intact. Full, normal range of motion. Equal circumference. Neuro: Awake and alert, GCS 15, oriented to person, place, time, and situation. Cranial nerves II-XII grossly intact. Motor strength 5/5 in all extremities. Sensory grossly intact. Cerebellar exam normal. Normal gait. Vital Signs: 01:55 BP 142 / 75; Pulse 89; Resp 22; Temp 99; Pulse Ox 99% on R/A; Weight 104.33 kg; Height da3 5 ft. 4 in. (162.56 cm); 01:55 Body Mass Index 39.48 (104.33 kg, 162.56 cm) da3 MDM: 02:29 Patient medically screened. rn 02:43 Differential diagnosis: arthritis, Cervical Discogenic Pain Cervical Facet Syndrome rn Cervical Spondylosis cervical strain, torticollis. Data reviewed: vital signs, nurses notes, and as a result, I will discharge patient. Counseling: I had a detailed discussion with the patient and/or guardian regarding: the historical points, exam findings, and any diagnostic results supporting the discharge/admit diagnosis, the need for outpatient follow up, to return to the emergency department if symptoms worsen or persist or if there are any questions or concerns that arise at home. Special discussion: I discussed with the patient/guardian in detail that at this point there is no indication for admission to the hospital. It is understood, however, that if the symptoms persist or worsen the patient needs to return immediately for re-evaluation. ED course: Most likely torticollis, no infectious symptoms, and no meningeal signs. No change in voice or difficulty swallowing. Will DC home with Flexeril and recommend heat and stretching.. Administered Medications: 02:51 Drug: Flexeril (cyclobenzaprine) 10 mg Route: PO; bb 02:51 Follow up: Response: Medication administered at discharge. bb 02:51 Drug: HYDROcodone-acetaminophen 5 mg-325 mg 1 tabs Route: PO; bb 02:51 Follow up: Response: Medication administered at discharge.; RASS: Alert and Calm (0) bb Disposition Summary: 01/22/21 02:45 Discharge Ordered Location: Home rn Problem: new rn Symptoms: are unchanged rn Condition: Stable rn Diagnosis - Torticollis rn Followup: rn - With: Private Physician - When: As needed - Reason: Recheck today's complaints, Re-evaluation by your physician Discharge Instructions: - Discharge Summary Sheet rn - Acute Torticollis, Adult rn - Neck Exercises rn Forms: - Medication Reconciliation Form rn - Thank You Letter rn - 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
--- NOTE | 2021-01-22 02:45 | ER ---
Nurse's Notes [facility] Name: Ammy Howell Age: 40 yrs Sex: Female : 1980 Arrival Date: 01/22/2021 Time: 01:50 Bed Waiting Private MD: Diagnosis: Torticollis Presentation: 01/22 01:55 Chief complaint: Patient states: neck and back pain x 1 day. Coronavirus screen: da3 Vaccine status: Patient reports being unvaccinated. Ebola Screen: No symptoms or risks identified at this time. Initial Sepsis Screen: Does the patient meet any 2 criteria? No. Patient's initial sepsis screen is negative. Risk Assessment: Do you want to hurt yourself or someone else? Patient reports no desire to harm self or others. Onset of symptoms was January 21, 2021 at 05:30. 01:55 Method Of Arrival: Ambulatory da3 01:55 Acuity: LAISHA 4 da3 Triage Assessment: 01:55 General: Appears uncomfortable, Behavior is calm, cooperative. 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 - Social history:: Smoking status: Patient/guardian denies using tobacco, the patient reports quitting approximately 3 years ago. - Family history:: not pertinent. - Hospitalizations: : No recent hospitalization is reported. Assessment: 02:51 Reassessment: pt seen by this RN at discharge pt verbalized understanding of and agrees bb to plan of care discharge instructions given pt ambulated with steady gait to exit accompanied by family. General: Appears in no apparent distress. uncomfortable, Behavior is calm, cooperative. Pain: Complains of pain in back and scalp. Neuro: Level of Consciousness is awake, alert, obeys commands, Oriented to person, place, time, situation. Cardiovascular: Capillary refill < 3 seconds Patient's skin is warm and dry. Respiratory: Respiratory effort is even, unlabored, Respiratory pattern is regular. GI: No signs and/or symptoms were reported involving the gastrointestinal system. Derm: Skin is pink, warm \T\ dry. Musculoskeletal: Circulation, motion, and sensation intact. Reports pain in back and scalp. Vital Signs: 01:55 BP 142 / 75; Pulse 89; Resp 22; Temp 99; Pulse Ox 99% on R/A; Weight 104.33 kg; Height da3 5 ft. 4 in. (162.56 cm); 01:55 Body Mass Index 39.48 (104.33 kg, 162.56 cm) da3 ED Course: 01:50 Patient arrived in ED. 02:00 Triage completed. da3 02:29 Jeffery Pang MD is Attending Physician. rn 02:34 Natalee Estrada, RN is Primary Nurse. sm5 Administered Medications: 02:51 Drug: Flexeril (cyclobenzaprine) 10 mg Route: PO; bb 02:51 Follow up: Response: Medication administered at discharge. bb 02:51 Drug: HYDROcodone-acetaminophen 5 mg-325 mg 1 tabs Route: PO; bb 02:51 Follow up: Response: Medication administered at discharge.; RASS: Alert and Calm (0) bb Outcome: 02:45 Discharge ordered by . rn 02:53 Discharged to home ambulatory, with family. bb 02:53 Condition: stable 02:53 Discharge instructions given to patient, Instructed on discharge instructions, follow up and referral plans. medication usage, Demonstrated understanding of instructions, follow-up care, medications, Prescriptions given X 1. 02:53 Patient left the ED. bb Signatures: Trinidad Velasco RN KAYLEY bb Jeffery Pang MD MD rn Marsh, Wendy Alessandro Johnson RN RN da3 Mazur, Sarah, KAYLEY ZALDIVAR sm5
[2021-01-22] MEDS ORDERED: CYCLOBENZAPRINE 10 MG TAB ONE (02:46)
[2021-01-22] MEDS ORDERED: HYDROCODONE/APAP 5/325 MG TAB ONE (02:47)
[2021-01-22 02:59] VITALS: BP 142/75; TEMP 99; O2SAT 99
== END 2021-01-22 02:53 | disposition home or self-care (01) ==
LOC: ER 01:46
DX: M43.6 Torticollis (principal)
CPT/HCPCS: 99283

== ENCOUNTER 2021-03-25 22:40 | Emergency (ER) | payer OTHER ==
[2021-03-25] MEDS ORDERED: NA CHLORIDE 0.9% 1,000 ML ONE (23:48)
[2021-03-25] MEDS ORDERED: ONDANSETRON 4 MG/2 ML VIAL ONE (23:48)
[2021-03-25] MEDS ORDERED: INSULIN -REGULAR HUMAN 50 UNIT/0.5 ML ML ONE (23:48)
[2021-03-26 00:23] LABS: Absolute Lymphocytes (CBC) 2.1 K/uL (0.7-4.9); Hematocrit 35.8 % (36.0-45.0); Lymphocytes % 23.4 % (15.3-44.8); MPV 7.2 fL (7.6-11.3); RBC Red Blood Cell Count 4.99 M/uL (3.86-4.86)
[2021-03-26 00:33] LABS: ALT/SGPT 32 U/L (12-78); AST/SGOT 12 U/L (15-37); Albumin 3.6 g/dL (3.4-5.0); Alkaline Phosphatase 121 U/L (45-117); BUN Blood Urea Nitrogen 11 mg/dL (7-18); Bicarbonate 25 mmol/L (21-32); Bilirubin Direct < 0.1 mg/dL (0-0.2); Bilirubin Total 0.2 mg/dL (0.2-1.0); Glucose Level 368 mg/dL (74-106); Lipase 435 U/L (73-393); Potassium 3.9 mmol/L (3.5-5.1); Protein, Total 7.9 g/dL (6.4-8.2); Sodium Level 133 mmol/L (136-145)
[2021-03-26] MEDS ORDERED: NA CHLORIDE 0.9% 1,000 ML ONE (00:43)
--- NOTE | 2021-03-26 01:29 | ER ---
Nurse's Notes [facility] Name: Ammy Howell Age: 40 yrs Sex: Female : 1980 Arrival Date: 03/25/2021 Time: 22:42 Bed 11 Private MD: Diagnosis: Hyperglycemia, unspecified Presentation: 03/25 23:04 Chief complaint: Patient states: Im a type 2 diabetic and I haven't been on my meds vc1 because of my insurance. My sugar today was 442 and I threw up before I got here and in the lobby. Coronavirus screen: Vaccine status: Patient reports being unvaccinated. At this time, the client does not indicate any symptoms associated with coronavirus-19. Ebola Screen: No symptoms or risks identified at this time. Initial Sepsis Screen: Does the patient meet any 2 criteria? No. Patient's initial sepsis screen is negative. Does the patient have a suspected source of infection? No. Patient's initial sepsis screen is negative. Risk Assessment: Do you want to hurt yourself or someone else? Patient reports no desire to harm self or others. Onset of symptoms was March 25, 2021. 23:04 Method Of Arrival: Wheelchair vc1 23:04 Acuity: LAISHA 4 vc1 23:04 Care prior to arrival: Glucose check: 442. vc1 Triage Assessment: 23:10 General: Appears in no apparent distress. uncomfortable, Behavior is calm, cooperative, vc1 appropriate for age. Pain: Denies pain. 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 Flu vaccine is not up to date. - Social history:: Smoking status: Patient denies any tobacco usage or history of. Screenin:29 Abuse screen: Denies threats or abuse. Denies injuries from another. Nutritional paul screening: No deficits noted. Tuberculosis screening: No symptoms or risk factors identified. Fall Risk None identified. Assessment: 23:15 General: Recv'd the pt to room 11 \T\ this time. . paul 23:25 General: BS taken in Triage 321. . paul 23:26 General: Appears in no apparent distress. Behavior is calm, cooperative. Pain: Denies paul pain. GI: Reports nausea. 03/26 00:11 General: The pt's IV access was obtained by my charge nurse, using the doppler. The pt paul was very cooperative with our attempts. She started a 22 gauge to the left AC. IVF infusing and the pt is resting in the treatment chair with her son at her side. . 01:29 General: The pt's bs after the 2nd liter was 291. She is to be dc'd home. Her son is paul still at bedside. She is anxious to go home. . Vital Signs: 03/25 23:04 BP 133 / 115; Pulse 95; Resp 20; Temp 97.5(TE); Pulse Ox 100% on R/A; Weight 104.33 kg; vc1 Height 5 ft. 4 in. (162.56 cm); Pain 0/10; 23:39 BP 154 / 104; Pulse 86; Resp 16; Pulse Ox 99% on R/A; Pain 5/10; paul 03/26 00:21 BP 139 / 85; Pulse 82; Resp 16; Pulse Ox 100% on R/A; Pain 0/10; sm5 01:07 BP 145 / 96; Pulse 85; Resp 16; Temp 98.5; Pulse Ox 100% on R/A; Pain 0/10; paul 01:41 BP 136 / 86; Pulse 83; Resp 16; Pulse Ox 100% on R/A; Pain 0/10; paul 03/25 23:04 Body Mass Index 39.48 (104.33 kg, 162.56 cm) vc1 ED Course: 03/25 22:42 Patient arrived in ED. jj6 23:05 Matias Ramirez PA is PHCP. jmm 23:05 Juliano Harding MD is Attending Physician. jmm 23:10 Triage completed. vc1 23:10 Arm band placed on left wrist. vc1 23:13 Trinidad Leo, RN is Primary Nurse. paul 23:29 Sitting in treatment chair. Her son is at bedside. paul 23:30 No provider procedures requiring assistance completed. paul 03/26 00:04 Initial lab(s) drawn, by me, sent to lab. Inserted saline lock: 22 gauge in left bb antecubital area, using aseptic technique. Blood collected. 00:08 Lipase Sent. paul 00:08 Hepatic Function Sent. paul 00:08 CBC with Diff Sent. paul 00:08 Basic Metabolic Panel Sent. paul 00:39 SN=966 after the 1st liter. paul 01:42 intact, bleeding controlled, No redness/swelling at site. Pressure dressing applied. paul Administered Medications: 03/25 23:45 Drug: NS 0.9% 1000 ml Route: IV; Rate: 1 bolus; Site: left antecubital; paul 03/26 00:45 Follow up: Response: No adverse reaction; Blood sugar is lowered; IV Status: Completed paul infusion; IV Intake: 1000ml 03/25 23:45 Drug: Zofran (Ondansetron) 4 mg Route: IVP; Site: left antecubital; paul 03/26 00:14 Follow up: Response: No adverse reaction paul 03/25 23:50 Drug: Insulin Regular Human 10 units {Co-Signature: vc1 (Annika Church RN).} Route: paul IVP; Site: left antecubital; 03/26 00:14 Follow up: Response: No adverse reaction paul 00:44 Drug: NS 0.9% 1000 ml Route: IV; Rate: 1 bolus; Site: left antecubital; paul 01:29 Follow up: Response: Blood sugar is lowered; IV Status: Completed infusion; IV Intake: paul 1000ml Intake: 00:45 IV: 1000ml; Total: 1000ml. paul 01:29 IV: 1000ml; Total: 2000ml. paul Outcome: 03/25 23:30 Condition: stable paul 03/26 01:28 Discharge ordered by . jmm 01:41 Discharged to home ambulatory, with family. paul 01:41 Discharge instructions given to patient, Instructed on discharge instructions, follow up and referral plans. medication usage, Demonstrated understanding of instructions, follow-up care, medications, Prescriptions given X 2. 01:42 Patient left the ED. paul Signatures: Matias Ramirez PA PA jmm Ballard, Brenda, Margot Huang RN6 Natalee Estrada RN RN sm5 Trinidad Leo RN RN bo Calcote, Vanessa, RN RN vc1 Annika Church RN vc1
--- NOTE | 2021-03-26 01:29 | EDPHYS ---
Physician Documentation [facility] Name: Ammy Howell Age: 40 yrs Sex: Female : 1980 Arrival Date: 03/25/2021 Time: 22:42 Bed 11 Private MD: ED Physician Juliano Harding HPI: 03/26 01:20 This 40 yrs old Female presents to ER via Wheelchair with complaints of High jmm Blood Sugar. 01:20 The patient or guardian reports hypoglycemia. Onset: The symptoms/episode jmm began/occurred today. Associated signs and symptoms: Pertinent positives: vomiting. Current symptoms: In the emergency department the patient's symptoms have improved. The patient has experienced similar episodes in the past. This is a 40-year-old female with history of bipolar, cervical cancer, depression, diabetes mellitus the presents emerged department with complaints of nausea and vomiting which occurred today. Patient states that due to insurance changes she has not been unable to obtain her medications for the past month. Denies shortness of breath. . 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 Flu vaccine is not up to date. - Social history:: Smoking status: Patient denies any tobacco usage or history of. ROS: 03/26 01:20 Constitutional: Negative for fever, chills, and weight loss, Cardiovascular: Negative jmm for chest pain, palpitations, and edema, Respiratory: Negative for shortness of breath, cough, wheezing, and pleuritic chest pain. Abdomen/GI: Positive for nausea, vomiting. All other systems are negative. Exam: 01:20 Head/Face: atraumatic. Eyes: EOMI, no conjunctival erythema appreciated ENT: Moist [facility] Mucus Membranes Neck: Trachea midline, Supple Chest/axilla: Normal chest wall appearance and motion. Cardiovascular: Regular rate and rhythm. No edema appreciated Respiratory: Normal respirations, no respiratory distress appreciated 01:20 Skin: General appearance color normal MS/ Extremity: Moves all extremities, no obvious deformities appreciated, no edema noted to the lower extremities Neuro: Awake and alert Psych: Behavior is normal, Mood is normal, Patient is cooperative and pleasant 01:20 Constitutional: The patient appears alert, awake, uncomfortable. 01:20 Abdomen/GI: Inspection: abdomen appears normal, Bowel sounds: normal, Palpation: soft, nontender, in all quadrants. Vital Signs: 03/25 23:04 BP 133 / 115; Pulse 95; Resp 20; Temp 97.5(TE); Pulse Ox 100% on R/A; Weight 104.33 kg; vc1 Height 5 ft. 4 in. (162.56 cm); Pain 0/10; 23:39 BP 154 / 104; Pulse 86; Resp 16; Pulse Ox 99% on R/A; Pain 5/10; paul 03/26 00:21 BP 139 / 85; Pulse 82; Resp 16; Pulse Ox 100% on R/A; Pain 0/10; sm5 01:07 BP 145 / 96; Pulse 85; Resp 16; Temp 98.5; Pulse Ox 100% on R/A; Pain 0/10; paul 01:41 BP 136 / 86; Pulse 83; Resp 16; Pulse Ox 100% on R/A; Pain 0/10; paul 03/25 23:04 Body Mass Index 39.48 (104.33 kg, 162.56 cm) vc1 MDM: 03/25 23:18 Patient medically screened. [facility] 03/26 01:20 Data reviewed: vital signs, nurses notes. Counseling: I had a detailed discussion with jasmin the patient and/or guardian regarding: the historical points, exam findings, and any diagnostic results supporting the discharge/admit diagnosis, the need for outpatient follow up, to return to the emergency department if symptoms worsen or persist or if there are any questions or concerns that arise at home. ED course: Patient states that she feels much better. Patient is able tolerate p.o. in the ED. We will patient prescription for Metformin. Chemistry was not concerning for metabolic acidosis. Patient is otherwise given strict return precautions. Patient understood agrees plan of care.. 03/25 23:14 Order name: Basic Metabolic Panel; Complete Time: 00:35 [facility] 03/25 23:14 Order name: CBC with Diff; Complete Time: 00:35 [facility] 03/25 23:14 Order name: Hepatic Function; Complete Time: 00:35 [facility] 03/25 23:14 Order name: Lipase; Complete Time: 00:35 [facility] 03/25 23:20 Order name: Glucose, Ancillary Testing; Complete Time: 00:23 [facility] 03/26 00:50 Order name: Glucose, Ancillary Testing; Complete Time: 01: [facility] 03/25 23:14 Order name: IV Saline Lock; Complete Time: 00:08 [facility] 03/25 23:14 Order name: Labs collected and sent; Complete Time: 00:08 [facility] 03/25 23:14 Order name: Fingerstick Glucose; Complete Time: 23:25 [facility] 03/26 01:39 Order name: Glucose, Ancillary Testing EDMS Administered Medications: 03/25 23:45 Drug: NS 0.9% 1000 ml Route: IV; Rate: 1 bolus; Site: left antecubital; paul 03/26 00:45 Follow up: Response: No adverse reaction; Blood sugar is lowered; IV Status: Completed paul infusion; IV Intake: 1000ml 03/25 23:45 Drug: Zofran (Ondansetron) 4 mg Route: IVP; Site: left antecubital; paul 03/26 00:14 Follow up: Response: No adverse reaction paul 03/25 23:50 Drug: Insulin Regular Human 10 units {Co-Signature: vc1 (Annika Church RN).} Route: paul IVP; Site: left antecubital; 03/26 00:14 Follow up: Response: No adverse reaction paul 00:44 Drug: NS 0.9% 1000 ml Route: IV; Rate: 1 bolus; Site: left antecubital; paul 01:29 Follow up: Response: Blood sugar is lowered; IV Status: Completed infusion; IV Intake: paul 1000ml Disposition: 06:31 Co-signature as Attending Physician, Juliano Harding MD. [email or web address] Disposition Summary: 03/26/21 01:28 Discharge Ordered Location: Home [facility] Condition: Stable jmm Diagnosis - Hyperglycemia, unspecified jmm Followup: jmm - With: Private Physician - When: 2 - 3 days - Reason: Recheck today's complaints, Continuance of care, Re-evaluation by your physician Discharge Instructions: - Discharge Summary Sheet jmm - Hyperglycemia [facility] Forms: - Medication Reconciliation Form [facility] - Thank You Letter [facility] - Antibiotic Education [facility] - Prescription Opioid Use [facility] - Work release form [email or web address] Prescriptions: - Metformin 1,000 mg Oral Tablet - take 1 tablet by ORAL route every 12 hours with morning and evening meals; 30 jmm tablet; Refills: 0, Product Selection Permitted - ondansetron 4 mg Oral tablet,disintegrating - place 1 tablet by TRANSLINGUAL route every 4-6 hours; 20 tablet; Refills: 0, jmm Product Selection Permitted Signatures: Dispatcher [employer] Matias Pichardo PA PA [facility] Juliano Harding MD MD 7 Trinidad Leo RN RN bo Calcote, Vanessa, RN RN vc1 Annika Church RN vc1
[2021-03-26 01:52] VITALS: O2SAT 100
[2021-03-26 01:53] VITALS: TEMP 98.5
[2021-03-26 01:54] VITALS: BP 136/86
== END 2021-03-26 01:42 | disposition home or self-care (01) ==
LOC: ER 22:40
DX: E11.65 Type 2 diabetes mellitus with hyperglycemia (principal); F31.9 Bipolar disorder, unspecified; Z79.4 Long term (current) use of insulin; Z88.5 Allergy status to narcotic agent
CPT/HCPCS: 96361; 85025; 80048; 36415; 82947 ×3; 80076; 83690; 96375; 96374; 99284; J7030 ×2; J2405

== ENCOUNTER 2021-09-27 13:59 | Emergency (ER) | payer OTHER ==
[2021-09-27] MEDS ORDERED: NA CHLORIDE 0.9% 0 ML ONE (14:32)
[2021-09-27] MEDS ORDERED: NA CHLORIDE 0.9% 1,000 ML ONE (14:34)
[2021-09-27] MEDS ORDERED: FAMOTIDINE 20 MG/2 ML VIAL IV ONE (14:34)
[2021-09-27] MEDS ORDERED: METOCLOPRAMIDE 10 MG/2mL INJ ONE (14:34)
[2021-09-27] MEDS ORDERED: MECLIZINE HCL 12.5 MG TAB ONE (14:34)
[2021-09-27 14:54] LABS: Absolute Lymphocytes (CBC) 1.8 K/uL (0.7-4.9); Hematocrit 36.5 % (36.0-45.0); Lymphocytes % 17.2 % (15.3-44.8); MCV 72.6 fL (80-100); MPV 7.2 fL (7.6-11.3); RBC Red Blood Cell Count 5.03 M/uL (3.86-4.86)
[2021-09-27 15:19] LABS: Urine Blood Trace-intact (Negative); Urine Glucose 2+ (Negative); Urine Protein 2+ (Negative); Urine Specific Gravity >=1.030 (1.005-1.030)
[2021-09-27] MEDS ORDERED: INSULIN -REGULAR HUMAN 50 UNIT/0.5 ML ML ONE (15:21)
[2021-09-27 15:23] LABS: ALT/SGPT 39 U/L (12-78); AST/SGOT 17 U/L (15-37); Albumin 3.7 g/dL (3.4-5.0); Alkaline Phosphatase 116 U/L (45-117); BUN Blood Urea Nitrogen 10 mg/dL (7-18); Bicarbonate 25 mmol/L (21-32); Bilirubin Total 0.4 mg/dL (0.2-1.0); Glomerular Filtration Rate 119 ml/min (=/>90); Glucose Level 308 mg/dL (74-106); Lipase 179 U/L (73-393); Potassium 3.8 mmol/L (3.5-5.1); Protein, Total 7.7 g/dL (6.4-8.2); Sodium Level 133 mmol/L (136-145)
[2021-09-27 15:50] LABS: Urine Bacteria <20 /HPF (<20); Urine Mucus 1+ /HPF (None Seen); Urine RBC <5 /HPF (None Seen)
--- NOTE | 2021-09-27 16:40 | RAD REPORT ---
EXAM DESCRIPTION: CT - Head Brain Wo Cont - 09/27/2021 4:27 pm CLINICAL HISTORY: Headache COMPARISON: 2019 TECHNIQUE: Computed axial tomography of the head was obtained. IV contrast was not requested. All CT scans are performed using dose optimization technique as appropriate and may include automated exposure control or mA/KV adjustment according to patient size. FINDINGS: An intracranial bleed is not seen . The ventricles are normal in caliber. No significant hypodense areas within the brain visualized No extra-axial fluid collection is noted. Fluid within the sinuses/ mastoids is not seen. IMPRESSION: No acute intracranial abnormality is seen. If patient's symptoms persist MRI of the bra in would be recommended.
[2021-09-27] MEDS ORDERED: KETOROLAC 30 MG/ML INJ ONE (17:41)
--- NOTE | 2021-09-27 18:26 | EDPHYS ---
Physician Documentation [facility] Name: Ammy Howell Age: 41 yrs Sex: Female : 1980 Arrival Date: 09/27/2021 Time: 14:13 Bed 17 Private MD: ED Physician Grant Paul HPI: 09/27 14:35 This 41 yrs old Female presents to ER via EMS with complaints of Elevated cp Blood Glucose. 14:35 The patient or guardian reports hyperglycemia, that was potentially precipitated by no cp particular event. Onset: The symptoms/episode began/occurred today. Associated signs and symptoms: Pertinent positives: nausea, headache, Pertinent negatives: diarrhea, vomiting, chest pain, abdominal pain. Current symptoms: In the emergency department the patient's symptoms are unchanged from the initial presentation, despite EMS interventions. 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 - Social history:: Smoking status: Patient denies any tobacco usage or history of. ROS: 14:45 Constitutional: Negative for body aches, chills, fever, poor PO intake. cp 14:45 Eyes: Negative for injury, pain, redness, and discharge. cp 14:45 ENT: Negative for drainage from ear(s), ear pain, sore throat, difficulty swallowing, difficulty handling secretions. 14:45 Cardiovascular: Negative for chest pain, palpitations. 14:45 Respiratory: Negative for cough, shortness of breath, wheezing. 14:45 Abdomen/GI: Positive for nausea, Negative for abdominal pain, vomiting, diarrhea, constipation. 14:45 : Negative for urinary symptoms. 14:45 Neuro: Positive for headache, Negative for altered mental status, numbness, syncope, weakness. 14:45 All other systems are negative. Exam: 14:48 Constitutional: The patient appears in no acute distress, alert, awake, cp non-diaphoretic, non-toxic, well developed, well nourished, obese. 14:48 Head/Face: Normocephalic, atraumatic. cp 14:48 Eyes: Periorbital structures: appear normal, Pupils: equal, round, and reactive to light and accomodation, Extraocular movements: intact throughout, Conjunctiva: normal, no exudate, no injection, Sclera: no appreciated abnormality, Lids and lashes: appear normal, bilaterally. 14:48 ENT: External ear(s): are unremarkable, Nose: is normal, Mouth: Lips: moist, Oral mucosa: pink and intact, moist, Posterior pharynx: Airway: no evidence of obstruction, patent. 14:48 Neck: ROM/movement: is normal, is supple, without pain, no range of motions limitations, no meningismus. 14:48 Chest/axilla: Inspection: normal, Palpation: is normal, no crepitus, no tenderness. 14:48 Cardiovascular: Rate: normal, Rhythm: regular, Edema: is not appreciated, JVD: is not appreciated. 14:48 Respiratory: the patient does not display signs of respiratory distress, Respirations: normal, no use of accessory muscles, no retractions, labored breathing, is not present, Breath sounds: are clear throughout, no decreased breath sounds, no stridor, no wheezing. 14:48 Abdomen/GI: Inspection: abdomen appears normal, Palpation: abdomen is soft and non-tender, in all quadrants. 14:48 Back: pain, is absent, ROM is normal. 14:48 Neuro: Orientation: to person, place \T\ time. Mentation: is normal, Cerebellar function: Romberg testing is negative, Motor: moves all fours, strength is normal, Sensation: is normal. 15:30 ECG was reviewed by the Attending Physician. cp Vital Signs: 14:05 BP 124 / 66; Pulse 77; Resp 16; Pulse Ox 99% on R/A; Weight 102.06 kg; Height 5 ft. 4 tp1 in. (162.56 cm); 14:05 BP 124 / 66; Pulse 77; Resp 16; Pulse Ox 99% on R/A; tp1 15:10 BP 120 / 63; Pulse 88; Resp 16; Pulse Ox 98% on R/A; tp1 16:10 BP 114 / 64; Pulse 101; Resp 16; Pulse Ox 100% on R/A; tp1 17:10 BP 129 / 64; Pulse 74; Resp 16; Pulse Ox 100% on R/A; tp1 18:07 BP 121 / 68; Pulse 71; Resp 16; Pulse Ox 100% on R/A; tp1 14:05 Body Mass Index 38.62 (102.06 kg, 162.56 cm) tp1 MDM: 14:18 Patient medically screened. cp 15:00 Differential diagnosis: DKA, hyperglycemia, sepsis, UTI, electrolyte abnormality. cp 18:25 Data reviewed: vital signs, nurses notes, lab test result(s), EKG, radiologic studies, cp CT scan. 18:25 Test interpretation: by ED physician or midlevel provider: ECG. Counseling: I had a cp detailed discussion with the patient and/or guardian regarding: the historical points, exam findings, and any diagnostic results supporting the discharge/admit diagnosis, lab results, radiology results, to return to the emergency department if symptoms worsen or persist or if there are any questions or concerns that arise at home. Response to treatment: the patient's symptoms have markedly improved after treatment, and as a result, I will discharge patient. 09/27 14:19 Order name: CBC with Diff; Complete Time: 15:21 cp 09/27 15:21 Interpretation: Normal except: RBC 5.03; HGB 11.9; MCV 72.6; MCH 23.7; RDW 16.8; MPV cp 7.2; ABDOULAYE% 77.5. 09/27 14:19 Order name: CMP; Complete Time: 15:33 cp 09/27 15:53 Interpretation: Normal except: NA 133; GLUC 308; CRE 0.54; GLOB 4.0; A/G 0.9. cp 09/27 14:19 Order name: Lipase; Complete Time: 15:33 cp 09/27 14:19 Order name: Urine Microscopic Only; Complete Time: 15:52 cp 09/27 15:53 Interpretation: Reviewed. 09/27 14:19 Order name: Ketone, Serum; Complete Time: 15:33 cp 09/27 14:31 Order name: Glucose, Ancillary Testing; Complete Time: 14:49 EDMS 09/27 15:22 Interpretation: Abnormal: GLUC,ANCIL 301. 09/27 15:19 Order name: Urine Dipstick-Ancillary; Complete Time: 15:21 EDMS 09/27 15:22 Interpretation: Normal except: UGLUC 2+; UKET 4+; UBLD Trace-intact; UPROT 2+. 09/27 15:20 Order name: Urine Dipstick-Ancillary; Complete Time: 15:21 EDMS 09/27 15:54 Order name: CT Head Brain wo Cont; Complete Time: 16:42 09/27 16:42 Interpretation: Report reviewed. 09/27 17:16 Order name: Glucose, Ancillary Testing; Complete Time: 17:25 EDMS 09/27 17:25 Interpretation: GLUC,ANCIL 264; Reviewed. 09/27 14:19 Order name: IV Saline Lock; Complete Time: 14:44 09/27 14:19 Order name: Labs collected and sent; Complete Time: 14:44 09/27 14:19 Order name: Urine Dipstick-Ancillary (obtain specimen); Complete Time: 16:23 09/27 14:19 Order name: Urine Test (obtain specimen); Complete Time: 16:23 cp 09/27 14:19 Order name: EKG; Complete Time: 14:21 cp 09/27 14:19 Order name: EKG - Nurse/Tech; Complete Time: 15:27 09/27 16:43 Order name: Accucheck Blood Glucose; Complete Time: 17:14 cp EC:30 Rate is 88 beats/min. Rhythm is regular. WV interval is normal. QRS interval is normal. cp QT interval is normal. T waves are Inverted. Interpreted by me. Reviewed by me. Administered Medications: 14:31 Drug: NS 0.9% 1000 ml Route: IV; Rate: 1 bolus; Site: right antecubital; tp1 18:29 Follow up: IV Status: Completed infusion; IV Intake: 900ml tp1 14:32 Drug: Pepcid (famotidine) 20 mg Route: IVP; Site: right antecubital; tp1 15:32 Follow up: Response: Nausea is decreased tp1 14:36 Drug: Reglan (metoCLOPramide) 10 mg Route: IVP; Site: right antecubital; tp1 15:32 Follow up: Response: Pain is decreased tp1 14:38 Drug: Meclizine 25 mg Route: PO; tp1 15:32 Follow up: Response: Pain is decreased tp1 15:14 Drug: Insulin Regular Human 7 units {Co-Signature: bp (Barry Rodriguez RN).} {Note: given tp1 SQ. provider notified.} Route: IVP; Site: Other; 18:28 Follow up: Response: Blood sugar is lowered tp1 17:43 Drug: Ketorolac 15 mg Route: IVP; Site: right antecubital; tp1 17:59 Follow up: Response: Pain is decreased tp1 Disposition: 22:01 Co-signature as Attending Physician, Grant Paul DO I was immediately available on-site ms3 in the Emergency Department for consultation in the care of the patient.. Disposition Summary: 09/27/21 18:26 Discharge Ordered Location: Home cp Problem: new cp Symptoms: have improved cp Condition: Stable cp Diagnosis - Headache cp - Diabetes mellitus due to underlying condition with hyperglycemia cp Followup: cp - With: Private Physician - When: 1 - 2 days - Reason: Recheck today's complaints Discharge Instructions: - Discharge Summary Sheet cp - General Headache Without Cause cp - Blood Glucose Monitoring, Adult cp - Diabetes Mellitus and Nutrition, Adult cp Forms: - Medication Reconciliation Form cp - Thank You Letter cp - Antibiotic Education cp - Prescription Opioid Use cp Prescriptions: - Ibuprofen 800 mg Oral Tablet - take 1 tablet by ORAL route every 8 hours As needed take with food; 30 tablet; cp Refills: 0, Product Selection Permitted - Zofran 4 mg Oral Tablet - take 1 tablet by ORAL route every 12 hours As needed; 20 tablet; Refills: 0, cp Product Selection Permitted Signatures: Dispatcher [employer] EDHI Gael Walters PA PA cp Grant Paul DO DO ms3 Angie Hays RN RN tp1 Barry Rodriguez RN bp Corrections: (The following items were deleted from the chart) 15:53 15:53 Normal except: NA 133; GLUC 308; CRE 0.54. cp cp 15:53 15:53 Normal except: NA 133; GLUC 308; CRE 0.54; GLOB 4.0. cp cp
--- NOTE | 2021-09-27 18:26 | ER ---
Nurse's Notes [facility] Name: Ammy Howell Age: 41 yrs Sex: Female : 1980 Arrival Date: 09/27/2021 Time: 14:13 Bed 17 Private MD: Diagnosis: Headache;Diabetes mellitus due to underlying condition with hyperglycemia Presentation: 09/27 14:05 Chief complaint: EMS states: toned out to [facility] for elevated Blood sugar. reports FBS tp1 325. BP 144/87, O2 99% on 4 L via NC. Reports nausea during transport. Coronavirus screen: Vaccine status: Patient reports being unvaccinated. Ebola Screen: Patient denies exposure to infectious person. Patient denies travel to an Ebola-affected area in the 21 days before illness onset. Initial Sepsis Screen: Does the patient meet any 2 criteria? No. Patient's initial sepsis screen is negative. Does the patient have a suspected source of infection? No. Patient's initial sepsis screen is negative. Risk Assessment: Do you want to hurt yourself or someone else? Patient reports no desire to harm self or others. Onset of symptoms was September 27, 2021. 14:05 Method Of Arrival: EMS: [facility] tp1 14:05 Acuity: LAISHA 3 tp1 Triage Assessment: 14:15 General: Appears in no apparent distress. uncomfortable, Behavior is cooperative, tp1 anxious. Pain: Complains of pain in forehead Pain does not radiate. Pain currently is 10 out of 10 on a pain scale. Quality of pain is described as tight Pain began today Is intermittent. 14:15 EENT: No signs and/or symptoms were reported regarding the EENT system. Neuro: Level of tp1 Consciousness is awake, alert, obeys commands, Oriented to person, place, time, situation, Pupils are PERRLA, Reports blurred vision dizziness, headache weakness. Cardiovascular: Denies chest pain, Patient's skin is warm and dry. Respiratory: Airway is patent Respiratory effort is even, unlabored. GI: Abdomen is round non-distended, Reports nausea, vomiting, Patient currently denies diarrhea. : No signs and/or symptoms were reported regarding the genitourinary system. Derm: Skin is pink, warm \T\ dry. Musculoskeletal: Circulation, motion, and sensation intact. 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 - Social history:: Smoking status: Patient denies any tobacco usage or history of. Screenin:39 Abuse screen: Denies threats or abuse. Nutritional screening: No deficits noted. tp1 Tuberculosis screening: No symptoms or risk factors identified. Fall Risk No fall in past 12 months (0 pts). No secondary diagnosis (0 pts). IV access (20 points). Ambulatory Aid- None/Bed Rest/Nurse Assist (0 pts). Gait- Normal/Bed Rest/Wheelchair (0 pts) Mental Status- Oriented to own ability (0 pts). Total Moreira Fall Scale indicates No Risk (0-24 pts). Assessment: 14:15 General: see triage notes . tp1 15:15 Reassessment: Patient appears in no apparent distress at this time. No changes from tp1 previously documented assessment. Patient and/or family updated on plan of care and expected duration. Pain level reassessed. Patient is alert, oriented x 3, equal unlabored respirations, skin warm/dry/pink. states pain and nausea has decreased. 16:15 Reassessment: escorted to CT via wheelchair. tp1 16:31 Reassessment: escorted back from CT via wheelchair by Quintin. tp1 16:35 Reassessment: Patient appears in no apparent distress at this time. No changes from tp1 previously documented assessment. Patient and/or family updated on plan of care and expected duration. Pain level reassessed. Patient is alert, oriented x 3, equal unlabored respirations, skin warm/dry/pink. states headache pain has decreased, now describes headache pain as soreness. rates pain 6/10. 17:37 Reassessment: Patient appears in no apparent distress at this time. No changes from tp1 previously documented assessment. Patient and/or family updated on plan of care and expected duration. Pain level reassessed. Patient is alert, oriented x 3, equal unlabored respirations, skin warm/dry/pink. continues to CO headache rated 6/10 that is described as soreness. 18:00 Reassessment: states pain has decreased. rates Pain 3/10. tp1 Vital Signs: 14:05 BP 124 / 66; Pulse 77; Resp 16; Pulse Ox 99% on R/A; Weight 102.06 kg; Height 5 ft. 4 tp1 in. (162.56 cm); 14:05 BP 124 / 66; Pulse 77; Resp 16; Pulse Ox 99% on R/A; tp1 15:10 BP 120 / 63; Pulse 88; Resp 16; Pulse Ox 98% on R/A; tp1 16:10 BP 114 / 64; Pulse 101; Resp 16; Pulse Ox 100% on R/A; tp1 17:10 BP 129 / 64; Pulse 74; Resp 16; Pulse Ox 100% on R/A; tp1 18:07 BP 121 / 68; Pulse 71; Resp 16; Pulse Ox 100% on R/A; tp1 14:05 Body Mass Index 38.62 (102.06 kg, 162.56 cm) tp1 ED Course: 14:13 Patient arrived in ED. vg1 14:14 Gael Walters PA is PHCP. cp 14:14 Grant Paul DO is Attending Physician. cp 14:15 Inserted saline lock: 20 gauge in right antecubital area, using aseptic technique. tp1 Blood collected. 14:15 No provider procedures requiring assistance completed. tp1 14:15 Arm band placed on. tp1 14:15 Placed in gown. Bed in low position. Call light in reach. Side rails up X 1. Pulse ox tp1 on. NIBP on. 14:21 Angie Hays, RN is Primary Nurse. tp1 14:49 Triage completed. tp1 15:27 EKG done, by ED staff. tp1 16:29 CT Head Brain wo Cont In Process Unspecified. EDMS 18:36 IV discontinued, intact, bleeding controlled, No redness/swelling at site. Pressure tp1 dressing applied. Administered Medications: 14:31 Drug: NS 0.9% 1000 ml Route: IV; Rate: 1 bolus; Site: right antecubital; tp1 18:29 Follow up: IV Status: Completed infusion; IV Intake: 900ml tp1 14:32 Drug: Pepcid (famotidine) 20 mg Route: IVP; Site: right antecubital; tp1 15:32 Follow up: Response: Nausea is decreased tp1 14:36 Drug: Reglan (metoCLOPramide) 10 mg Route: IVP; Site: right antecubital; tp1 15:32 Follow up: Response: Pain is decreased tp1 14:38 Drug: Meclizine 25 mg Route: PO; tp1 15:32 Follow up: Response: Pain is decreased tp1 15:14 Drug: Insulin Regular Human 7 units {Co-Signature: bp (Barry Rodriguez RN).} {Note: given tp1 SQ. provider notified.} Route: IVP; Site: Other; 18:28 Follow up: Response: Blood sugar is lowered tp1 17:43 Drug: Ketorolac 15 mg Route: IVP; Site: right antecubital; tp1 17:59 Follow up: Response: Pain is decreased tp1 Medication: 15:39 VIS not applicable for this client. tp1 Intake: 18:29 IV: 900ml; Total: 900ml. tp1 Outcome: 18:26 Discharge ordered by MD. cp 18:36 Discharged to home ambulatory. tp1 18:36 Condition: good 18:36 Discharge instructions given to patient, Instructed on discharge instructions, follow up and referral plans. medication usage, Demonstrated understanding of instructions, follow-up care, medications, Prescriptions given X 2. 18:37 Patient left the ED. tp1 Signatures: Dispatcher [employer] EDMS Gael Walters PA PA cp Garcia, Victoria, RN RN vg1 Angie Hays RN RN tp1 Barry Rodriguez RN bp Corrections: (The following items were deleted from the chart) 14:50 14:49 BP 124 / 66; Pulse 77bpm; Resp 16bpm; Pulse Ox 99% RA; tp1 tp1 15:41 15:39 General: see triage notes . tp1 tp1
[2021-09-27 19:36] VITALS: O2SAT 100
[2021-09-27 19:40] VITALS: BP 121/68
--- NOTE | 2021-09-28 08:13 | EKG ---
Test Date: 2021-09-27 Test Time: 15:22:40 Educational Psychology Teacher: ABIMAEL MEASUREMENT RESULTS: Intervals: Rate: 88 MA: 150 QRSD: 92 QT: 366 QTc: 442 [place]: P: 49 MA: 150 QRS: 60 T: 33 INTERPRETIVE STATEMENTS: Normal sinus rhythm Normal ECG Compared to ECG 04/07/2018 18:00:55 No significant changes Electronically Signed On 09-28-21 08:11:08 CDT by Benny Ellis
== END 2021-09-27 18:37 | disposition home or self-care (01) ==
LOC: ER 13:59
DX: E11.65 Type 2 diabetes mellitus with hyperglycemia (principal); R11.0 Nausea; F31.9 Bipolar disorder, unspecified; Z79.4 Long term (current) use of insulin; Z88.5 Allergy status to narcotic agent
CPT/HCPCS: 93005; 85025; 36415; 82010; 82947 ×2; 83690; 80053; 70450; 99284; J2765; J1815; J8597; J7030; 81003; 81015; J7040

== ENCOUNTER → 2023-03-13 | Emergency (ER) | payer SELFPAY ==
[~2023-03-13] MED LIST: KETOROLAC 30 MG/ML INJ ONE; NA CHLORIDE 0.9% 1,000 ML ONE; ONDANSETRON 4 MG/2 ML VIAL ONE
--- OUTSIDE RECORDS SUMMARY | 2023-03-13 14:33 | XMS REPORT | Clinical Summary ---
Author Name Unknown Organization [facility] Address [address] [place] [address] Care Team Providers Care Client Project Coordinator Name Role Phone Pao Patel MD Primary Care Provider + [phone] Jurgen Hubbard MD Unavailable [phone] Allergies Active Allergy Reactions Criticality Noted Date Comments Meperidine Hives 08/10/2016 Medications Medication Sig Dispensed Refills Start Date End Date Status ABILIFY 2 mg tablet Take 1 tablet by mouth at bedtime. 0 09/15/2015 Active EQUETRO 200 mg 12 hr capsule Take 2 capsules by mouth twice daily. 2 04/04/2016 Active clonazePAM (KlonoPIN) 0.5 mg tablet Take 1 tablet by mouth as needed. 2 04/01/2016 Active zolpidem (AMBIEN) 10 mg tablet Take 1 tablet by mouth at bedtime. 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 Open RI CONIZATION CERVIX W/WO D&C RPR KNIFE/LASER 09/23/2016 Vagina /N/A Procedure: CONIZATION OF CERVIX USING COLD KNIFE WITH FULGARATION AND ENCERRVICAL CURETTING; Surgeon: Pao Patel MD; Location: [facility]; Service: PROFILE GRINDER - GYNECOLOGIC ONCOLOGY Medical History Medical History Date Comments Tooth disorder 2 yrs ago Colitis 2013 Diverticulitis 2013 Had repair of my colon Irritable bowel syndrome Depressive disorder 2 yrs ago Under pysc. Doctor care Anxiety Bipolar disorder Suicide attempt Family History Medical History Relation Name Comments -Unknown cancer Father Thyroid cancer Maternal Aunt Diabetes Maternal Grandmother Stroke Maternal Grandmother Cervical cancer Mother Coronary heart disease (CHD) Mother Thyroid cancer Mother Thyroid cancer Sister Relation Name Status Comments Father Maternal Aunt Maternal Grandmother Mother Alive Sister Social History Tobacco Use Types Packs/Day Years Used Date Smoking Tobacco: Former Cigarettes 1.5 6 Q uit: 2013 Smokeless Tobacco: Former Quit: 05/25/2013 Alcohol Use Standard Drinks/Week Comments No 0 (1 standard drink = 0.6 oz pur e alcohol) Sex and Gender Information Value Date Recorded Sex Assigned at Not on file Gender Identity Not on file Sexual Orientation Not on file Obstetrics History Para Term AB IAB SAB Ectopic Multiple Livin g Live Births 3 3 3 3 Date Outcome GA Total Labor Labor/2nd/3rd Weight Sex Delivery Anes PTL Sandy A1 A5 Name Cl in Term Vag-Spont Term Vag-Spont Term Vag-Spont Comments 1) Pap Smear - see HPI, last before this one 2012. None abnormal prior. Mammogram 2) STIs: h/o chlamydia 3) Menarche: age 12-13. Regular 28 day cycle. Plan of Treatment Health Maintenance Due Date Last Done Comments COVID-19 Vaccination (#1) 03/28/1981 Care Teams Client Project Coordinator Relationship Specialty Start Date End Date Pao Patel MD PCP - General Gynecologic Medical Oncology 08/05/16 Jurgen Hubbard MD [address] [place] [id number] PCP - External Referring 08/08/16
[2023-03-13 16:53] LABS: Absolute Lymphocytes (CBC) 0.6 K/uL (0.7-4.9); MCV 75.5 fL (80-100); Platelets 380 thou/uL (152-406); RBC Red Blood Cell Count 5.04 M/uL (3.86-4.86)
[2023-03-13 17:07] LABS: Albumin 3.8 g/dL (3.4-5.0); Bilirubin Total 0.6 mg/dL (0.2-1.0); Potassium 3.8 mEq/L (3.5-5.1); Protein, Total 8.4 g/dL (6.4-8.2)
[2023-03-13 17:13] LABS: Specific Gravity 1.029 (1.005-1.030)
[2023-03-13 17:26] LABS: Specific Gravity > 1.030 (1.005-1.030); Urine Bacteria <20 /HPF (<20); Urine Bilirubin NEGATIVE (Negative); Urine Blood Negative (Negative); Urine Clarity Turbid (Clear); Urine Color Yellow (Yellow); Urine Glucose 3+ (Negative); Urine Mucus 3+ /HPF (None Seen); Urine Protein 2+ (Negative); Urine RBC <5 /HPF (None Seen); Urine Urobilinogen Normal (Normal)
--- NOTE | 2023-03-13 18:45 | RAD REPORT ---
EXAM DESCRIPTION: CT - Abdomen Pelvis W Contrast - 03/13/2023 6:00 pm CLINICAL HISTORY: ABD PAIN COMPARISON: Abdomen Pelvis W Contrast dated 08/13/2020; Abdomen Pelvis W Contrast dated 08/16/2015; CT ABD PELVIS W CONTRAST dated 02/22/2014; CT ABD PELVIS W CONTRAST dated 10/08/2013 TECHNIQUE: Thin cut axial CT imaging of the abdomen and pelvis was performed following intravenous a dministration of 100 mL Isovue 300. Multiplanar reformats were generated and reviewed. All CT scans are performed using dose optimization technique as appropriate and may include automated exposure control or mA/KV adjustment according to patient size. FINDINGS: No suspicious findings in the lung bases. The liver, spleen, adrenal glands and pancreas show no suspicious findings. Gallbladder was surgicall y removed. Symmetric renal function is seen with no hydronephrosis or suspicious renal mass. No dilated bowel loops or bowel wall thickening. Nonspecific fluid filling within nondistended small bowel loops in the central abdomen. A distal colonic anastomotic suture line is noted. No free air, f ree fluid or inflammatory stranding. No hernia, mass or bulky lymphadenopathy. Anterior wall uterine fibroid. The urinary bladder is without significant finding. No suspicious bony findings. IMPRESSION: Nonspecific fluid filling within nondistended small bowel loops in the central abdomen. Findings may relate to infectious or inflammatory enteritis.
--- NOTE | 2023-03-13 18:51 | EDPHYS ---
Physician Documentation [facility] Name: Ammy Howell Age: 42 yrs Sex: Female : 1980 Arrival Date: 03/13/2023 Time: 14:31 Bed Treatment Private MD: ED Physician Grant Paul HPI: 03/13 14:55 This 42 yrs old Female presents to ER via Ambulatory with complaints of sb4 Vomiting/Diarrhea. 14:55 The patient presents to the emergency department with nausea, vomiting, diarrhea. sb4 Onset: The symptoms/episode began/occurred this morning. Possible causes: bad food exposure, sick contacts. Associated signs and symptoms: Pertinent negatives: fever, GI bleeding. The patient has not experienced similar symptoms in the past. Historical: - Allergies: 14:49 Demerol; tl4 14:49 Dilaudid; tl4 - PMHx: 14:49 Bipolar disorder; cervical cancer; diabetes mellitus; Depression; Diverticulitis; tl4 - PSHx: 14:49 Cholecystectomy; hernia; Colon; Ligation of fallopian tube; tl4 - Immunization history:: Adult Immunizations unknown. - Social history:: Smoking status: Patient denies any tobacco usage or history of. ROS: 14:56 Constitutional: Negative for fever, chills, and weight loss, sb4 14:56 Abdomen/GI: Positive for nausea, vomiting, and diarrhea, 14:56 All other systems are negative, Exam: 14:56 Head/Face: Normocephalic, atraumatic. Eyes: Extra-ocular motions intact. Periorbital sb4 areas with no swelling, redness, or edema. Cardiovascular: Regular rate and rhythm with a normal S1 and S2. Respiratory: Lungs have equal breath sounds bilaterally, clear to auscultation and percussion. No rales, rhonchi or wheezes noted. No increased work of breathing, no retractions or nasal flaring. Abdomen/GI: Soft, non-tender, no distension. Skin: Warm, dry with normal turgor. Normal color with no rashes, no lesions, and no evidence of cellulitis. MS/ Extremity: Pulses equal, no cyanosis. Neurovascular intact. Full, normal range of motion. 14:56 Constitutional: The patient appears alert, awake, obviously ill, 14:56 ENT: Mouth: Oral mucosa: dry, Vital Signs: 14:47 BP 140 / 92; Pulse 119; Resp 20; Temp 98.3; Pulse Ox 99% on R/A; Weight 104.33 kg; tl4 Height 5 ft. 4 in. ; Pain 8/10; 16:32 BP 124 / 73; Pulse 108; Resp 18; Pulse Ox 98% on R/A; Pain 8/10; nj1 17:28 BP 134 / 71; Pulse 107; Resp 18; Pulse Ox 100% on R/A; Pain 8/10; nj1 19:38 BP 114 / 63; Pulse 100; Resp 16; Pulse Ox 97% ; jj7 14:47 Body Mass Index 39.48 (104.33 kg, 162.56 cm) tl4 14:47 Pain Scale: Adult tl4 16:32 Pain Scale: Adult nj1 17:28 Pain Scale: Adult nj1 MDM: 14:54 Patient medically screened. sb4 14:56 Differential diagnosis: gastroenteritis, hypovolemia, . sb4 18:50 Data reviewed: vital signs, nurses notes, lab test result(s), radiologic studies, and sb4 as a result, I will discharge patient. Care significantly affected by the following chronic conditions: Diabetes, Obesity. Counseling: I had a detailed discussion with the patient and/or guardian regarding the historical points, exam findings, and any diagnostic results supporting the discharge/admit diagnosis, lab results, radiology results, to return to the emergency department if symptoms worsen or persist or if there are any questions or concerns that arise at home. 03/13 14:54 Order name: CBC with Diff sb4 03/13 14:54 Order name: CMP; Complete Time: 17:11 sb4 03/13 14:54 Order name: Lipase; Complete Time: 17:11 sb4 03/13 14:56 Order name: Test, Urine; Complete Time: 17:19 sb4 03/13 14:56 Order name: Urinalysis w/ reflexes; Complete Time: 17:29 sb4 03/13 17:11 Order name: CT Abd/Pelvis - IV Contrast Only; Complete Time: 18:47 sb4 03/13 14:54 Order name: IV Saline Lock; Complete Time: 16:35 sb4 03/13 14:54 Order name: Labs collected and sent; Complete Time: 16:35 sb4 Administered Medications: 16:23 Drug: NS 0.9% IV 1000 ml IV at 1 bolus Per protocol; 1000 mL bolus Route: IV; Rate: 1 nj1 bolus; Site: left antecubital; 17:40 Follow up: Response: No adverse reaction; IV Status: Completed infusion; IV Intake: nj1 1000ml 16:24 Drug: Ondansetron IVP 4 mg IVP once; over 2 minutes Route: IVP; Site: left antecubital; nj1 17:28 Follow up: Response: No adverse reaction; Nausea is decreased nj1 17:40 Drug: NS 0.9% IV 1000 ml IV at 1 bolus Per protocol; 1000 mL bolus Route: IV; Rate: 1 nj1 bolus; Site: left antecubital; 19:39 Follow up: IV Status: Completed infusion jj7 17:40 Drug: Ketorolac IVP 30 mg IVP once Route: IVP; Site: left antecubital; nj1 19:39 Follow up: Response: Marked relief of symptoms jj7 Disposition: 16:53 I was immediately available on-site in the Emergency Department for consultation in the ms3 care of the patient. Disposition Summary: 03/13/23 18:50 Discharge Ordered Notes: Location: Home sb4 Problem: new sb4 Symptoms: have improved sb4 Condition: Stable sb4 Diagnosis - Noninfective gastroenteritis and colitis, unspecified sb4 Followup: sb4 - With: Emergency Department - When: As needed - Reason: Trouble breathing, Worsening of condition Discharge Instructions: - Discharge Summary Sheet sb4 - Viral Gastroenteritis, Adult sb4 Forms: - Work release form sb4 - Medication Reconciliation Form sb4 - Thank You Letter sb4 - Antibiotic Education sb4 - Prescription Opioid Use sb4 - Patient Portal Instructions sb4 - Leadership Thank You Letter sb4 Prescriptions: - ondansetron 4 mg Oral Tablet,disintegrating - take 1 tablet ORAL route every 8 hours; 15 tablet; Refills: 0, Product sb4 Selection Permitted Signatures: Dispatcher [employer] EDMS Grant Paul DO DO ms3 Negrita Andujar PA-C PALudaC sb4 Janet Bowers RN RN nj1 Torsten Gould4 Shun Wu RN jj7
--- NOTE | 2023-03-13 18:51 | ER ---
Nurse's Notes [facility] Name: Ammy Howell Age: 42 yrs Sex: Female : 1980 Arrival Date: 03/13/2023 Time: 14:31 Bed Treatment Private MD: Diagnosis: Noninfective gastroenteritis and colitis, unspecified Presentation: 03/13 14:47 Chief complaint: Patient states: Pt c/o nausea, vomiting, diarrhea, and headache since tl4 0800 today. Pt states she is unable to tolerate clear fluids. Coronavirus screen: Vaccine status: Patient reports being unvaccinated. Ebola Screen: Patient negative for fever greater than or equal to 101.5 degrees Fahrenheit, and additional compatible Ebola Virus Disease symptoms Patient denies exposure to infectious person. Patient denies travel to an Ebola-affected area in the 21 days before illness onset. No symptoms or risks identified at this time. Initial Sepsis Screen: Does the patient meet any 2 criteria? No. Patient's initial sepsis screen is negative. Does the patient have a suspected source of infection? No. Patient's initial sepsis screen is negative. Risk Assessment: Do you want to hurt yourself or someone else? Patient reports no desire to harm self or others. Onset of symptoms was March 13, 2023 at 08:00. 14:47 Method Of Arrival: Ambulatory tl4 14:47 Acuity: LAISHA 3 tl4 Triage Assessment: 14:50 General: Appears uncomfortable, Behavior is calm, cooperative. Pain: Complains of pain tl4 in head. EENT: No deficits noted. No signs and/or symptoms were reported regarding the EENT system. Neuro: Reports headache. Cardiovascular: Denies chest pain, diaphoresis, lightheadedness, palpitations. Respiratory: No deficits noted. Respiratory: Denies cough, shortness of breath. GI: Reports diarrhea, nausea, vomiting. : No deficits noted. No signs and/or symptoms were reported regarding the genitourinary system. Historical: - Allergies: 14:49 Demerol; tl4 14:49 Dilaudid; tl4 - PMHx: 14:49 Bipolar disorder; cervical cancer; diabetes mellitus; Depression; Diverticulitis; tl4 - PSHx: 14:49 Cholecystectomy; hernia; Colon; Ligation of fallopian tube; tl4 - Immunization history:: Adult Immunizations unknown. - Social history:: Smoking status: Patient denies any tobacco usage or history of. Screenin:34 [facility] ED Fall Risk Assessment (Adult) Score/Fall Risk Level 0 - 2 = Low Risk nj1 Oriented to surroundings, Maintained a safe environment, Hourly rounding (assess needs \T\ fall precautionary measures) done. Abuse screen: Denies threats or abuse. Denies injuries from another. Nutritional screening: No deficits noted. Tuberculosis screening: No symptoms or risk factors identified. Assessment: 16:25 General: Appears in no apparent distress. uncomfortable, Behavior is calm, cooperative, nj1 appropriate for age. Pain: Complains of pain in head Pain currently is 8 out of 10 on a pain scale. Quality of pain is described as aching. Neuro: Level of Consciousness is awake, alert, obeys commands, Oriented to person, place, time, situation. Cardiovascular: Patient's skin is warm and dry. Respiratory: Airway is patent Respiratory effort is even, unlabored. GI: Reports nausea, Patient currently denies abdominal pain. 17:35 Reassessment: Patient appears in no apparent distress at this time. Patient and/or nj1 family updated on plan of care and expected duration. Pain level reassessed. Patient is alert, oriented x 3, equal unlabored respirations, skin warm/dry/pink. Pain: Complains of pain in Head Pain currently is 8 out of 10 on a pain scale. Quality of pain is described as aching. GI: Patient currently denies nausea. Vital Signs: 14:47 BP 140 / 92; Pulse 119; Resp 20; Temp 98.3; Pulse Ox 99% on R/A; Weight 104.33 kg; tl4 Height 5 ft. 4 in. ; Pain 8/10; 16:32 BP 124 / 73; Pulse 108; Resp 18; Pulse Ox 98% on R/A; Pain 8/10; nj1 17:28 BP 134 / 71; Pulse 107; Resp 18; Pulse Ox 100% on R/A; Pain 8/10; nj1 19:38 BP 114 / 63; Pulse 100; Resp 16; Pulse Ox 97% ; jj7 14:47 Body Mass Index 39.48 (104.33 kg, 162.56 cm) tl4 14:47 Pain Scale: Adult tl4 16:32 Pain Scale: Adult nj1 17:28 Pain Scale: Adult nj1 ED Course: 14:33 Patient arrived in ED. im 14:37 Negrita Andujar PA[facility]C [facility]. sb4 14:37 Grant Paul DO is Attending Physician. sb4 14:49 Triage completed. tl4 14:51 Arm band placed on right wrist. tl4 16:04 Missed attempt(s): 20 gauge in right in left forearm. Bleeding controlled, band aid cm10 applied, catheter tip intact. 16:11 Janet Bowers, KAYLEY is Primary Nurse. nj1 16:22 Inserted saline lock: 20 gauge in left antecubital area, using aseptic technique. nj1 ,using aseptic technique. Ultrasound guided. Catheter tip well visualized within vasculature during placement. Blood collected. 16:25 Patient has correct armband on for positive identification. Bed in low position. Call nj1 light in reach. Side rails up X 1. Provided Education on: call light, fall precautions. 18:02 CT Abd/Pelvis - IV Contrast Only In Process Unspecified. EDMS 19:38 No provider procedures requiring assistance completed. IV discontinued, intact, jj7 bleeding controlled, No redness/swelling at site. Pressure dressing applied. Administered Medications: 16:23 Drug: NS 0.9% IV 1000 ml IV at 1 bolus Per protocol; 1000 mL bolus Route: IV; Rate: 1 nj1 bolus; Site: left antecubital; 17:40 Follow up: Response: No adverse reaction; IV Status: Completed infusion; IV Intake: nj1 1000ml 16:24 Drug: Ondansetron IVP 4 mg IVP once; over 2 minutes Route: IVP; Site: left antecubital; nj1 17:28 Follow up: Response: No adverse reaction; Nausea is decreased nj1 17:40 Drug: NS 0.9% IV 1000 ml IV at 1 bolus Per protocol; 1000 mL bolus Route: IV; Rate: 1 nj1 bolus; Site: left antecubital; 19:39 Follow up: IV Status: Completed infusion jj7 17:40 Drug: Ketorolac IVP 30 mg IVP once Route: IVP; Site: left antecubital; nj1 19:39 Follow up: Response: Marked relief of symptoms jj7 Medication: 19:39 VIS not applicable for this client. jj7 Intake: 17:40 IV: 1000ml; Total: 1000ml. nj1 Outcome: 18:50 Discharge ordered by . eddi 19:38 Discharged to home ambulatory, jj7 19:38 Condition: improved 19:38 Discharge instructions given to patient, Instructed on discharge instructions, medication usage, Demonstrated understanding of instructions, medications, Prescriptions given X 1, 19:40 Patient left the ED. jj7 Signatures: Dispatcher [employer] EDShun Christianson RN RN jj7 Negrita Andujar, PA-C PA-C sb4 Janet Bowers RN RN nj1 Trupti Hannon Clarissa RN RN cm10 Torsten Gould 4
[2023-03-13 22:35] LABS: Blood Morphology Comment NOT SEEN (NOT SEEN); Platelet Estimate ADEQ; White Blood Cell Scan OK (OK)
[2023-03-13 23:37] VITALS: BP 114/63; TEMP 98.3; O2SAT 97
== END ==
LOC: ER 14:31
DX: K52.9 Noninfective gastroenteritis and colitis, unspecified (principal)
CPT/HCPCS: 36415; 74177; 80053; 81001; 81025; 83690; 85025; J2405; J7030; Q9967

== ENCOUNTER 2024-04-18 10:17 | Emergency (ER) | payer OTHER, SELFPAY ==
--- OUTSIDE RECORDS SUMMARY | 2024-04-18 10:20 | XMS REPORT | Clinical Summary ---
Author Name Unknown Organization [facility] [place] Address [address] [place] [address] Care Team Providers Care Valve Pipe Irrigator Name Role Phone Pao Patel MD Primary Care Provider + [phone] Jurgen Hubbard MD Unavailable [phone] Allergies Active Allergy Reactions Criticality Noted Date Comments Meperidine Hives 08/10/2016 Medications ABILIFY 2 mg tablet Take 1 tablet [...] Carcinoma in situ of uterine cervix 09/20/2016 Overview (09/20/2016): Added automatically from request for surgery [id number] Morbid (severe) obesity due to excess calories 0 08/10/2016 Surgical History Surgery Date Site/Laterality Comments COLONOSCOPY 02/13/2013 - 02/12/2014 HERNIA REPAIR 2007,2013,2016 CHOLECYSTECTOMY 02/13/2011 - 02/13/2012 laparoscopic TUBAL LIGATION 02/13/2003 - 02/13/2004 COLECTOMY 02/13/2013 - 02/12/2014 partial - diverticulosis. 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 - GYNECOLOGIC ONCOLOGY Medical History Medical History [...] Date Smoking Tobacco: Former Cigarettes 1.5 6 2 008 - 2013 Smokeless Tobacco: Former Quit: 05/25/2013 Alcohol Use Standard Drinks/Week Comments No 0 (1 standard drink = 0.6 oz pur e alcohol) Comments No Sex and Gender Information Value Date Recorded Sex Assigned at Not on file Legal Sex Female 2:55 PM CDT Gender Identity Not on file Sexual Orientation Not on file Obstetrics History Para Term AB IAB SAB Ectopic Multiple Livin g Live Births 3 3 3 3 Date Outcome GA Total Labor Labor/2nd/3rd Weight Sex Type Anes PTL Sandy A1 A5 Name Clin Term Vag-Spo nt Term Vag-Spo nt Term Vag-Spo nt Comments 1) Pap Smear - see HPI, last before this one 2012. None abnormal prior. Mammogram 2) STIs: h/o chlamydia 3) Menarche: age 12-13. Regular 28 day cycle. Plan of Treatment Health Maintenance Due Date Last Done Comments COVID-19 Vaccine (2023-2 5 season) 2023 Influenza Vaccine (#1) 2023 Pneumococcal Vaccine Aged Out No long er eligible based on patient's age to complete this topic Insurance O POS OPEN ACCESS O POS OPEN ACCESS O POS OPEN ACCESS Care Teams Valve Pipe Irrigator Relationship Specialty Start Date End Date Pao Patel MD [email or web address] PCP - General Gynecologic Medical Oncology 08/05/16 Jurgen Hubbard MD [address] [place] [id number] [email or web address] PCP - External Referring 08/08/16
--- NOTE | 2024-04-18 12:06 | RAD REPORT ---
Procedure: Chest Single View HISTORY: Cough COMPARISON: 2019 FINDINGS: The lungs appear clear of acute infiltrate. No significant pleural effusion noted. The heart is normal size. IMPRESSION: No acute abnormality is displayed.
[2024-04-18] MEDS ORDERED: ACETAMINOPHEN 500 MG TAB ONE (12:31)
[2024-04-18] MEDS ORDERED: IPRATROPIUM BROM 0.5MG/2.5ML ONE (12:31)
[2024-04-18] MEDS ORDERED: ONDANSETRON 4 MG (ODT) TAB ONE (12:31)
[2024-04-18] MEDS ORDERED: ALBUTEROL 2.5 MG/3 ML NEB SOL ONE (12:31)
[2024-04-18 12:38] LABS: Absolute Basophils 0.1 K/uL (0-0.5); Absolute Lymphocytes (CBC) 0.7 K/uL (0.7-4.9); Absolute Monocytes 0.6 K/uL (0.1-1.3); Absolute Neutrophil 5.2 K/uL (1.8-8.0); Basophils % 0.8 % (0-1.3); Eosinophils % 0.7 % (0-4.4); Hematocrit 38.9 % (36.0-45.0); Lymphocytes % 10.9 % (15.3-44.8); MCHC 33.3 g/dL (32.0-36.0); MCV 75.1 fL (80-100); MPV 7.1 fL (7.6-11.3); Monocytes % 8.9 % (3.3-12.3); Neutrophils % 78.7 % (41.7-73.7); Platelets 314 thou/uL (152-406); RBC Red Blood Cell Count 5.18 M/uL (3.86-4.86)
[2024-04-18 12:51] LABS: Influenza A Ag Negative
[2024-04-18 12:52] LABS: Influenza B Ag Negative; SARS-CoV-2 Antigen Rapid Res Negative (Negative)
[2024-04-18 12:53] LABS: ALT/SGPT 29 U/L (13-56); AST/SGOT 18 U/L (15-37); Albumin 3.3 g/dL (3.4-5.0); Albumin/Globulin Ratio 0.7 (1.1-1.8); Alkaline Phosphatase 131 U/L (45-117); Anion Gap 9.8 mEq/L (5.0-15.0); BUN Blood Urea Nitrogen 7 mg/dL (7-18); Bicarbonate 24 mEq/L (21-32); Bilirubin Total 0.3 mg/dL (0.2-1.0); Globulin 4.7 g/dL (2.3-3.5); Glomerular Filtration Rate 118 ml/min (=/>90); Glucose Level 218 mg/dL (74-106); NT PRO-BNP 60 pg/mL (<125); Potassium 3.8 mEq/L (3.5-5.1); Sodium Level 130 mEq/L (136-145)
[2024-04-18 13:04] LABS: Bilirubin Direct < 0.2 mg/dL (0-0.2); Bilirubin Indirect, Calculated 0.1 mg/dL (0.2-0.8); Troponin High Sensitivity < 3.0 pg/mL (<58.9)
--- NOTE | 2024-04-18 13:26 | ER ---
Nurse's Notes [facility] Name: Ammy Howell Age: 43 yrs Sex: Female : 1980 Arrival Date: 04/18/2024 Time: 10:17 Bed 26 Private MD: Diagnosis: Acute upper respiratory infection, unspecified Presentation: 04/18 10:35 Chief complaint: Cough and congestion, x 1 month but worse over last 2 days, N/V and hb body aches since last night. Coronavirus screen: Client presents with at least one sign or symptom that may indicate coronavirus-19. Provider contacted for isolation considerations. Ebola Screen: No symptoms or risks identified at this time. Initial Sepsis Screen: Does the patient meet any 2 criteria? Temp <36.0*C (96.8*F)) or > 38.3*C (100.9*F). HR > 90 bpm. Yes Does the patient have a suspected source of infection? No. Patient's initial sepsis screen is negative. Risk Assessment: Do you want to hurt yourself or someone else? Patient reports no desire to harm self or others. Onset of symptoms was March 2024. 10:35 Method Of Arrival: Ambulatory hb 10:35 Acuity: LAISHA 2 hb Triage Assessment: 13:40 Pain: Also complains of. 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 - Infectious Disease History:: Denies. - Social history:: Smoking status: Patient denies any tobacco usage or history of. - Family history:: not pertinent. Screenin:04 [facility] ED Fall Risk Assessment (Adult) History of falling in the last 3 months, me1 including since admission No falls in past 3 months (0 pts) Confusion or Disorientation No (0 pts) Intoxicated or Sedated No (0 pts) Impaired Gait No (0 pts) Mobility Assist Device Used No (0 pt) Altered Elimination No (0 pt) Score/Fall Risk Level 0 - 2 = Low Risk Maintained a safe environment, Provided non-skid footwear, Hourly rounding (assess needs \T\ fall precautionary measures) done. Abuse screen: Denies threats or abuse. Nutritional screening: No deficits noted. Tuberculosis screening: No symptoms or risk factors identified. Assessment: 12:04 General: Appears uncomfortable, ill, well groomed, well developed, well nourished, me1 Behavior is calm, cooperative, appropriate for age, Reports Cough and congestion, x 1 month but worse over last 2 days, N/V and body aches since last night. Pain: Complains of pain in generalized Pain does not radiate. Pain currently is 5 out of 10 on a pain scale. Quality of pain is described as aching, Pain began 1 day ago. Is continuous. Neuro: Level of Consciousness is awake, alert, obeys commands, Oriented to person, place, time, situation, Appropriate for age. Cardiovascular: Patient's skin is warm and dry. Respiratory: Reports cough that is persistent since about a month ago. Worse over past two days Airway is patent Respiratory effort is even, unlabored, Respiratory pattern is regular, symmetrical. GI: Reports nausea, vomiting, since yesterday. : No signs and/or symptoms were reported regarding the genitourinary system. EENT: Reports nasal congestion since yesterday. Derm: Skin is intact, is healthy with good turgor, Skin is pink, warm \T\ dry. Musculoskeletal: No signs and/or symptoms reported regarding the musculoskeletal system. Vital Signs: 10:35 BP 154 / 99; Pulse 122; Resp 18; Temp 101.3(O); Pulse Ox 100% on R/A; hb 12:08 Pulse 114; Resp 22; Temp 98.7(O); iw 12:15 BP 129 / 83; Pulse 114; Resp 22; Pulse Ox 98% on Nebulizer Mask; me1 13:00 BP 134 / 69; Pulse 101; Resp 24; Temp 98; Pulse Ox 94% on R/A; me1 ED Course: 10:20 Patient arrived in ED. al6 10:21 Angel No MD is Attending Physician. rt 10:36 Triage completed. hb 10:37 Arm band placed on. hb 11:56 XRAY Chest (1 view) In Process Unspecified. EDMS 12:04 Patient has correct armband on for positive identification. Bed in low position. Call me1 light in reach. Side rails up X2. Provided Education on: POC. Verbalized understanding.. Client placed on continuous cardiac and pulse oximetry monitoring. NIBP monitoring applied. senior business analyst on. Pulse ox on. NIBP on. 12:04 No provider procedures requiring assistance completed. me1 12:15 Blanca Mckenna, RN is Primary Nurse. me1 12:27 Basic Metabolic Panel Sent. me1 12:27 CBC with Diff Sent. me1 12:27 LFT's Sent. me1 12:27 NT PRO-BNP Sent. me1 12:27 Troponin HS Sent. me1 12:27 COVID-19 Ag + Flu A+B Ag Sent. me1 12:27 Initial lab(s) drawn, by me, sent to lab. COVID swab sent to lab. Flu and/or RSV swab me1 sent to lab. Inserted saline lock: 22 gauge in left antecubital area, using aseptic technique. 13:40 IV discontinued, intact, bleeding controlled, No redness/swelling at site. Pressure me1 dressing applied. Administered Medications: 12:46 Drug: Albuterol Inhalation 2.5 mg Inhalation once Route: Inhalation; me1 13:27 Follow up: Response: No adverse reaction; Wheezing diminished me1 12:46 Drug: Ipratropium Inhalation Aerosol 0.5 mg Inhalation once Route: Inhalation; me1 13:27 Follow up: Response: No adverse reaction; Wheezing diminished me1 12:46 Drug: Acetaminophen PO 1000 mg PO once Route: PO; me1 13:27 Follow up: Response: No adverse reaction; Pain is decreased me1 12:46 Drug: Ondansetron Oral Disintegrating Tablet Oral Disintegrating Tablet 4 mg PO once me1 Route: PO; 13:27 Follow up: Response: No adverse reaction; Nausea is decreased me1 Medication: 12:04 VIS not applicable for this client. me1 Outcome: 13:25 Discharge ordered by . rt 13:40 Discharged to home ambulatory, with family, me1 13:40 Condition: stable 13:40 Discharge instructions given to patient, family, Instructed on discharge instructions, follow up and referral plans. medication usage, Demonstrated understanding of instructions, follow-up care, medications, Prescriptions given X 2, 13:42 Patient left the ED. me1 Signatures: Dispatcher [employer] EDRachna Plascencia RN RN Juliane Guthrie RN RN Angel No MD MD Blanca Mckenna RN RN me1 Quita Gaines6 Corrections: (The following items were deleted from the chart) 10:37 10:35 Chief complaint: Cough and congestion, x 1 month but worse over last 2 days, N/V hb since last night. hb 13:29 10:35 Chief complaint: Cough and congestion, x 1 month but worse over last 2 days, N/V me1 and body aches since last night. hb
--- NOTE | 2024-04-18 13:26 | EDPHYS ---
Physician Documentation [facility] Name: Ammy Howell Age: 43 yrs Sex: Female : 1980 Arrival Date: 04/18/2024 Time: 10:17 Bed 26 Private MD: ED Physician Angel No HPI: 04/18 10:56 This 43 yrs old Female presents to ER via Ambulatory with complaints of Cough, rt bodyaches, Headache, Breathing Difficulty. 10:56 Patient presents to the ED with about 2 days of cough, congestion, shortness of breath, rt body aches, headaches, nausea, fever. Denies other acute complaints at this time. Patient similar symptoms earlier in the month about 3 weeks ago, states that it started in the past 2 days. Symptoms are moderate severity, no other aggravating alleviating factors.. 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 - Infectious Disease History:: Denies. - Social history:: Smoking status: Patient denies any tobacco usage or history of. - Family history:: not pertinent. ROS: 10:56 MS/Extremity: Negative for injury and deformity, Skin: Negative for injury, rash, and rt discoloration, 10:56 Constitutional: Positive for body aches, fever, 10:56 Respiratory: Positive for cough, shortness of breath, 10:56 Abdomen/GI: Positive for nausea, Negative for abdominal pain, Exam: 10:56 Constitutional: This is a well developed, well nourished patient who is awake, alert, rt and in no acute distress. Head/Face: Normocephalic, atraumatic. Chest/axilla: Normal chest wall appearance and motion. Nontender with no deformity. No lesions are appreciated. Cardiovascular: Regular rate and rhythm with a normal S1 and S2. No gallops, murmurs, or rubs. Normal PMI, no JVD. No pulse deficits. Respiratory: Lungs have equal breath sounds bilaterally, clear to auscultation and percussion. No rales, rhonchi or wheezes noted. No increased work of breathing, no retractions or nasal flaring. Abdomen/GI: Soft, non-tender, with normal bowel sounds. No distension or tympany. No guarding or rebound. No evidence of tenderness throughout. Skin: Warm, dry with normal turgor. Normal color with no rashes, no lesions, and no evidence of cellulitis. MS/ Extremity: Pulses equal, no cyanosis. Neurovascular intact. Full, normal range of motion. Neuro: Awake and alert, GCS 15, oriented to person, place, time, and situation. Cranial nerves II-XII grossly intact. Motor strength 5/5 in all extremities. Sensory grossly intact. Cerebellar exam normal. Normal gait. 13:03 ECG was reviewed by the Attending Physician. rt Vital Signs: 10:35 BP 154 / 99; Pulse 122; Resp 18; Temp 101.3(O); Pulse Ox 100% on R/A; hb 12:08 Pulse 114; Resp 22; Temp 98.7(O); iw 12:15 BP 129 / 83; Pulse 114; Resp 22; Pulse Ox 98% on Nebulizer Mask; me1 13:00 BP 134 / 69; Pulse 101; Resp 24; Temp 98; Pulse Ox 94% on R/A; me1 MDM: 10:37 Medical Screening Exam initiated rt 14:52 Differential Diagnosis: Other Flu, COVID, viral syndrome, pneumonia. Data reviewed: rt vital signs, nurses notes, lab test result(s), EKG, radiologic studies. Consideration of Admission/Observation Escalation of care including admission/observation considered. Patient without leukocytosis, I suspect fever, tachycardia is secondary to viral syndrome, do not believe that patient has bacterial sepsis, do not believe she requires blood cultures, admission at this time.. I considered the following discharge prescriptions or medication management in the emergency department Medications were administered in the Emergency Department. See MAR. Independent interpretation of the following test(s) in the Emergency Department X-Ray: My interpretation is No infiltrates normal dictation of x-ray images. Test considered but Not performed: CT: Low suspicion for pe CT angiogram not decayed. Care significantly affected by the following chronic conditions: Diabetes. Counseling: I had a detailed discussion with the patient and/or guardian regarding the historical points, exam findings, and any diagnostic results supporting the discharge/admit diagnosis, lab results, radiology results, the need for outpatient follow up, to return to the emergency department if symptoms worsen or persist or if there are any questions or concerns that arise at home. Response to treatment: the patient's symptoms have markedly improved after treatment. 04/18 10:38 Order name: Basic Metabolic Panel; Complete Time: 13:15 rt 04/18 10:38 Order name: CBC with Diff; Complete Time: 12:49 rt 04/18 10:38 Order name: LFT's; Complete Time: 13:15 rt 04/18 10:38 Order name: NT PRO-BNP; Complete Time: 13:15 rt 04/18 10:38 Order name: Troponin HS; Complete Time: 13:15 rt 04/18 10:38 Order name: COVID-19 Ag + Flu A+B Ag; Complete Time: 13:15 rt 04/18 10:38 Order name: XRAY Chest (1 view); Complete Time: 12:08 rt 04/18 10:38 Order name: Cardiac monitoring; Complete Time: 12:46 rt 04/18 10:38 Order name: EKG - Nurse/Tech; Complete Time: 12:46 rt 04/18 10:38 Order name: IV Saline Lock; Complete Time: 12:27 rt 04/18 10:38 Order name: Labs collected and sent; Complete Time: 12:27 rt 04/18 10:38 Order name: O2 Per Protocol; Complete Time: 12:27 rt 04/18 10:38 Order name: O2 Sat Monitoring; Complete Time: 12:27 rt EC:03 Rate is 98 beats/min. Rhythm is regular, Normal Sinus Rhythm with No ectopy. QRS Vader rt is Normal. [place] interval is normal. QRS interval is normal. QT interval is normal. No Q waves. T waves are Normal. No ST changes noted. Interpreted by me. Administered Medications: 12:46 Drug: Albuterol Inhalation 2.5 mg Inhalation once Route: Inhalation; me1 13:27 Follow up: Response: No adverse reaction; Wheezing diminished me1 12:46 Drug: Ipratropium Inhalation Aerosol 0.5 mg Inhalation once Route: Inhalation; me1 13:27 Follow up: Response: No adverse reaction; Wheezing diminished me1 12:46 Drug: Acetaminophen PO 1000 mg PO once Route: PO; me1 13:27 Follow up: Response: No adverse reaction; Pain is decreased me1 12:46 Drug: Ondansetron Oral Disintegrating Tablet Oral Disintegrating Tablet 4 mg PO once me1 Route: PO; 13:27 Follow up: Response: No adverse reaction; Nausea is decreased me1 Disposition Summary: 04/18/24 13:25 Discharge Ordered Notes: Location: Home rt Problem: new rt Symptoms: have improved rt Condition: Stable rt Diagnosis - Acute upper respiratory infection, unspecified rt Followup: rt - With: Private Physician - When: 2 - 3 days - Reason: Discharge Instructions: - Discharge Summary Sheet rt - Viral Respiratory Infection rt Forms: - Medication Reconciliation Form rt - Antibiotic Education rt - Prescription Opioid Use rt - Patient Portal Instructions rt - Leadership Thank You Letter rt Prescriptions: - albuterol sulfate 90 mcg/actuation Inhalation HFA Aerosol Inhaler - inhale 4 puff INHALATION route every 3 to 4 hours as needed; 2 Each; Refills: rt 0, Product Selection Permitted - Tessalon Perles 100 mg Oral Capsule - take 1 capsule ORAL route every 8 hours As needed; 15 capsule; Refills: 0, rt Product Selection Permitted Signatures: Dispatcher [employer] Juliane Curtis RN RN Angel No MD MD rt Blanca Mckenna RN RN me1
[2024-04-18 14:12] VITALS: BP 134/69; TEMP 98; O2SAT 94
== END 2024-04-18 13:42 | disposition home or self-care (01) ==
LOC: ER 10:17
DX: J06.9 Acute upper respiratory infection, unspecified (principal); Z11.52 Encounter for screening for COVID-19
CPT/HCPCS: 93005; 85025; 80048; 36415; 80076; 84484; 83880; 71045; 99285; 87428; Q0162; J7613; J7644